=== PATIENT | female | born 1950 | race Caucasian/White ===

== ENCOUNTER 2023-04-20 14:27 | Inpatient (IN) | payer OTHER, SELFPAY ==
[2023-04-20 14:45] VITALS: BMI 28.9
[2023-04-20 14:54] VITALS: BP 124/58; PULSE 87; RESP 18; TEMP 36.3; O2SAT 96
[2023-04-20] MEDS: metFORMIN HCl ER 500 MG TAB.ER.24H PO ×2 (16:32→21:12)
[2023-04-20] MEDS: hydrALAZINE HCl 50 MG TABLET PO ×2 (16:32→21:38)
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
--- NOTE | 2023-04-20 17:45 | P.CONHOSP_ITS ---
History of Present Illness Data of Consult Service Date: 04/20/23 Requesting physician: Da Valle Primary Care Provider: Unknown Physician HPI Reason for consult: medical h&p 72 year old female with history of hypertension, insulin-dependent type 2 diabetes, hypothyroidism, hyperlipidemia, schizoaffective disorder admitted to Geriatric Psychiatry with consult placed to hospitalist service for medical H&P. The patient is very guarded on exam and is not answering most questions or offering up much information. She states on the way to the hospital in the ambulance was nauseas but this has resolved. No other complaints. Denies etoh use, cigarette smoking or drug use. IN the ED, hematology studies unremarkable, renal function normal, lytes normal except for a mild hyponatremia. UA negative, Utox negative. Review of Systems Review of Systems: General: No fevers, malaise, unintentional weight loss HEENT: No blurred vision, diplopia. No sore throat, nasal congestion, rhinorrhea, sinus pain, ear pain Cardiovascular: No chest pain, palpitations, or leg edema Respiratory: No shortness of breath, wheezing, cough GI: No abdominal pain, nausea, vomiting, diarrhea, constipation, melena, hematochezia : No dysuria, hematuria, increased urinary frequency, decreased urinary output MSK: No myalgia, back pain Neuro: No headaches, weakness, paresthesias Skin: No rashes or lesions [facility] Medical History Schizoaffective disorder Hypothyroidism Type 2 diabetes mellitus HLD (hyperlipidemia) HTN (hypertension) Social History Household Members: None Housing: Apartment Do you presently have visiting nurse or other home services: Yes (stopped coming) Patient Tobacco Use Status: Never used Tobacco Use of substances other than those prescribed or required for medical reasons: No Currently Displaying Signs/Symptoms of Drug Intoxication Withdrawal: No Any prior treatment program specific to substance use: No Have you been hit, kicked, punched, or otherwise hurt by someone within the past year? If so, by whom?: No Do you feel safe in your current relationship?: No Is there a partner from a previous relationship who is making you feel unsafe now?: No Are you made to feel afraid or neglected: No Spiritual Healthcare Practices: No Anabaptism Healthcare Practices: No Cultural Healthcare Practices: No Advance Directives: No Advance Directives Information Provided: No Do you have thoughts of harming others: None Do you have a plan to hurt others: No Plan Recently lost weight without trying: No Eating poorly because of decreased appetite: No Nutrition Risks: No Nutritional Risk Patient : No : No Poor oral hygiene: No Meds Allergies Allergy/AdvReac Type Severity Reaction Status Date / Time latex AdvReac Unknown Verified 04/20/23 14:48 Active Medications: Current Medications Acetaminophen (Acetaminophen 325 Mg Tablet) 650 mg PO Q6H PRN PRN Reason: Headache/Pain Mild Scale (1-3) Al Hydroxide/Mg Hydroxide (Magnesium Hydrox/Alum Hydrox 30 Ml Oral.Susp) 30 ml PO Q6H PRN PRN Reason: Heartburn/Nausea Amlodipine Besylate (Amlodipine Besylate 5 Mg Tablet) 5 mg PO DAILY [facility]; Protocol Aripiprazole (Aripiprazole 10 Mg Tablet) 10 mg PO DAILY [facility] Atorvastatin Calcium (Atorvastatin Calcium 40 Mg Tablet) 40 mg PO BEDTIME [facility] Clonazepam (Clonazepam 1 Mg Tablet) 1 mg PO BID PRN PRN Reason: Anxiety Clozapine (Clozapine 100 Mg Tablet) 400 mg PO BEDTIME [facility] Empagliflozin (Empagliflozin 10 Mg Tablet) 10 mg PO DAILY [facility] Folic Acid (Folic Acid 1 Mg Tablet) 1 mg PO DAILY [facility] Hydralazine HCl (Hydralazine Hcl 50 Mg Tablet) 50 mg PO TID [facility]; Protocol Last Admin: 04/20/23 16:32 Dose: 50 mg Hydroxyzine HCl (Hydroxyzine Hcl 25 Mg Tablet) 25 mg PO Q6H PRN PRN Reason: Anxiety Magnesium Hydroxide (Milk Of Magnesia 30 Ml Oral.Susp) 30 ml PO DAILY PRN PRN Reason: Constipation Metformin HCl (Metformin Hcl Er 500 Mg Tab.Er.24h) 500 mg PO TID@0900,1700,2100 [facility] Last Admin: 04/20/23 16:32 Dose: 500 mg Metoprolol Tartrate (Metoprolol Tartrate 50 Mg Tablet) 50 mg PO BID [facility]; Protocol Non-Formulary Medication (Dulaglutide [Trulicity]) 1.5 mg SUBCUT Q7D [facility] Trazodone HCl (Trazodone Hcl 50 Mg Tablet) 50 mg PO BEDTIME MRX1 PRN PRN Reason: Insomnia Vitamin D (Cholecalciferol (Vitamin D3) 25 Mcg Tablet) 25 mcg PO DAILY [facility] Home Medications Medication Instructions Recorded Confirmed Last Taken Type amlodipine 5 mg tablet 5 mg PO DAILY 04/20/23 04/20/23 Unknown History aripiprazole 10 mg tablet 10 mg PO DAILY 04/20/23 04/20/23 Unknown History atorvastatin 40 mg tablet 40 mg PO BEDTIME 04/20/23 04/20/23 Unknown History cholecalciferol (vitamin D3) 25 25 mcg PO DAILY 04/20/23 04/20/23 Unknown History mcg (1,000 unit) tablet clonazepam 1 mg tablet 1 mg PO BID PRN Anxiety 04/20/23 04/20/23 Unknown History clozapine 200 mg tablet 400 mg PO BEDTIME 04/20/23 04/20/23 Unknown History dapagliflozin propanediol 10 mg 10 mg PO DAILY 04/20/23 04/20/23 Unknown History tablet (Farxiga) dulaglutide 1.5 mg/0.5 mL 1.5 mg subcut QWEEK 04/20/23 04/20/23 Unknown History subcutaneous pen injector (Trulicity) folic acid 1 mg tablet 1 mg PO DAILY 04/20/23 04/20/23 Unknown History hydralazine 50 mg tablet 50 mg PO TID 04/20/23 04/20/23 Unknown History insulin glargine 100 unit/mL 15 unit subcut DIRECTED 04/20/23 04/20/23 Unknown History subcutaneous solution (Lantus U-100 Insulin) lisinopril 10 mg tablet 10 mg PO DAILY blood pressure 04/20/23 04/20/23 Unknown History metformin 500 mg tablet,extended 500 mg PO TID 04/20/23 04/20/23 Unknown History release 24 hr methimazole 10 mg tablet 10 mg PO DAILY 04/20/23 04/20/23 Unknown History metoprolol tartrate 50 mg tablet 50 mg PO BID 04/20/23 04/20/23 Unknown History Physical Exam Vital Signs and Narrative: Vital Signs: Last Vital Signs Temp 97.4 F 04/20/23 14:54 Pulse 87 04/20/23 14:54 Resp 18 04/20/23 14:54 BP 124/58 L 04/20/23 14:54 Pulse Ox 96 04/20/23 14:54 O2 Del Method Room Air 03/05/24 14:54 BMI result Body Mass Index 28.9 Constitutional - Awake and Alert, No apparent distress Eyes - non conjunctival injection, EOMI Cardiovascular - S1S2, RRR, No edema Respiratory - Normal lung expansion, Normal respiratory effort, No respiratory distress, CTA bilaterally Gastrointestinal - NT / ND; +BS; No rebound or guarding Extremities - no calf tenderness bilaterally, no swelling Musculoskeletal - Normal inspection, normal ROM Skin - Warm/Dry Neurological - Alert & oriented x3, pinpoint pupils otherwise CN II-XII in tact, 5/5 strength BUE and BLE Psychological - Appropriate affect Assessment and Plan (1) Routine medical exam: Status: Acute Plan 72 year old female with history of hypertension, insulin-dependent type 2 diabetes, hyperthyroidism, hyperlipidemia, schizoaffective disorder admitted to Geriatric Psychiatry with consult placed to hospitalist service for medical H&P. #Schizoaffective disorder -plan per psychiatry #HTN -bp controlled at 117/59 on exam -continue amlodipine 5mg, hydralazine, metoprolol, lisinopril #Hyperthyroidism -Please reach out to family/pharmacy to confirm methimazole dosing as this was not continued in med rec and should be. Discussed with RN -Check tsh and free t4 now #Insulin dependent type 2 diabetes -poc glucose, diabetic diet if pt agreeable -continue lantus, metformin, farxiga. Continue trulicity if able #HLD -continue statin #Pinpoint pupils noted on exam -suspect chronic r/t clozapine use -There are no other focal deficits on exam and patient is not symptomatic. Discussed with Dr. Davis, head CT not indicated at this time Thank you for this consult. Will continue following for results.
[2023-04-20 18:00] VITALS: BP 108/60; PULSE 73; RESP 18; TEMP 36.1; O2SAT 95
[2023-04-20 19:15] LABS: Free T4 (Free Thyroxine) 1.25 ng/dL (0.71-1.85); Thyroid Stimulating Hormone 0.01 uIU/mL (0.32-4.0)
[2023-04-20] MEDS: cloZAPine 100 MG TABLET 400 MG PO (21:10)
[2023-04-20] MEDS: Atorvastatin Calcium 40 MG TABLET PO (21:10)
[2023-04-20] MEDS: Metoprolol Tartrate 50 MG TABLET PO (21:39)
[2023-04-21 08:30] VITALS: BP 111/62; PULSE 76; RESP 18; O2SAT 100
[2023-04-21] MEDS: ARIPiprazole 10 MG TABLET PO (09:07)
[2023-04-21] MEDS: hydrALAZINE HCl 50 MG TABLET PO ×3 (09:07→20:43)
[2023-04-21] MEDS: Cholecalciferol (Vitamin D3) 25 MCG TABLET PO (09:07)
[2023-04-21] MEDS: Folic Acid 1 MG TABLET PO (09:07)
[2023-04-21] MEDS: Empagliflozin 10 MG TABLET PO (09:08)
[2023-04-21] MEDS: metFORMIN HCl ER 500 MG TAB.ER.24H PO ×3 (09:08→20:41)
[2023-04-21] MEDS: Metoprolol Tartrate 50 MG TABLET PO ×2 (09:08→20:43)
[2023-04-21] MEDS: methIMAzole 10 MG TABLET PO (09:08)
[2023-04-21] MEDS: amLODIPine Besylate 5 MG TABLET PO (09:08)
[2023-04-21 11:26] LABS: Glucose, Whole Blood 145 mg/dL (60-115)
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
--- NOTE | 2023-04-21 14:06 | MHC.CLN ---
NUTRITION VISITED WITH PATIENT AFTER LUNCH. STATED THAT WOULD LIKE A DIABETIC DIET. ALSO, CHECKS BLOOD SUGARS TWICE DAILY AT HOME. DIET CHANGED TO DIABETIC 1800 KCALS.
[2023-04-21 16:15] VITALS: BP 140/62; PULSE 71; RESP 16; TEMP 36.2; O2SAT 99
[2023-04-21 18:00] VITALS: BP 110/70; PULSE 82; RESP 16; TEMP 36.4; O2SAT 99
[2023-04-21] MEDS: cloZAPine 100 MG TABLET 400 MG PO (20:41)
[2023-04-21] MEDS: Atorvastatin Calcium 40 MG TABLET PO (20:41)
[2023-04-21] MEDS: clonazePAM 1 MG TABLET PO (20:42)
[2023-04-21] MEDS: Insulin Glargine,Hum.rec.anlog 100 UNIT/ML 10 ML VIAL 15 UNIT SUBCUT (21:27)
[2023-04-21 21:34] LABS: Glucose, Whole Blood 139 mg/dL (60-115)
[2023-04-22 06:29] LABS: Glucose, Whole Blood 112 mg/dL (60-115)
[2023-04-22 07:00] VITALS: BMI 29.3
[2023-04-22 08:10] VITALS: BP 113/71; PULSE 79; RESP 18; TEMP 36.1; O2SAT 98
[2023-04-22 08:24] LABS: Estimated Average Glucose 120 mg/dL; Hemoglobin A1c % 5.8 % (<6.0)
[2023-04-22 08:45] LABS: Alanine Aminotransferase 73 U/L (0-31); Albumin Level 3.5 g/dL (3.5-5.0); Alkaline Phosphatase 77 U/L (39-117); Anion Gap 9 (12-20); Aspartate Amino Transferase 39 U/L (5-31); Bilirubin Total 0.4 mg/dL (0.0-1.0); Blood Urea Nitrogen 18 mg/dL (9-16); Calcium 10.2 mg/dL (8.4-10.2); Carbon Dioxide 24 mmol/L (22-29); Chloride 105 mmol/L (96-108); Cholesterol 81 mg/dL (<200); Estimated Glomerular Filt Rate > 60; Glucose Fasting 169 mg/dL (60-99); HDL Cholesterol 39 mg/dL (>40); LDL Cholesterol Calculated 23 mg/dL (<100); Sodium 134 mmol/L (135-145); Total Protein 6.9 g/dL (6.5-8.0); Triglycerides 97 mg/dL (<150)
[2023-04-22 09:06] LABS: Thyroid Stimulating Hormone < 0.01 uIU/mL (0.32-4.0)
[2023-04-22] MEDS: Empagliflozin 10 MG TABLET PO (09:21)
[2023-04-22] MEDS: lisinopriL 10 MG TABLET PO (09:22)
[2023-04-22] MEDS: metFORMIN HCl ER 500 MG TAB.ER.24H PO ×3 (09:22→21:44)
[2023-04-22] MEDS: Cholecalciferol (Vitamin D3) 25 MCG TABLET PO (09:22)
[2023-04-22] MEDS: ARIPiprazole 10 MG TABLET PO (09:22)
[2023-04-22] MEDS: Metoprolol Tartrate 50 MG TABLET PO ×2 (09:22→21:44)
[2023-04-22] MEDS: hydrALAZINE HCl 50 MG TABLET PO ×3 (09:22→21:44)
[2023-04-22] MEDS: Folic Acid 1 MG TABLET PO (09:23)
[2023-04-22] MEDS: amLODIPine Besylate 5 MG TABLET PO (09:23)
[2023-04-22] MEDS: methIMAzole 10 MG TABLET PO (09:27)
[2023-04-22] MEDS: Acetaminophen 325 MG TABLET 650 MG PO (09:38)
[2023-04-22 14:29] VITALS: BP 114/56; PULSE 68
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
[2023-04-22 16:26] LABS: Glucose, Whole Blood 154 mg/dL (60-115)
[2023-04-22 19:57] VITALS: BP 154/67; PULSE 64; RESP 18; TEMP 36.5; O2SAT 96
[2023-04-22 20:18] LABS: Glucose, Whole Blood 131 mg/dL (60-115)
[2023-04-22] MEDS: Insulin Glargine,Hum.rec.anlog 100 UNIT/ML 10 ML VIAL 15 UNIT SUBCUT (21:43)
[2023-04-22] MEDS: Atorvastatin Calcium 40 MG TABLET PO (21:44)
[2023-04-22] MEDS: cloZAPine 100 MG TABLET 400 MG PO (21:44)
[2023-04-23 06:35] LABS: Glucose, Whole Blood 132 mg/dL (60-115)
[2023-04-23 08:05] LABS: MANUAL DIFF FLAG NO
[2023-04-23 08:06] LABS: Basophils Absolute Auto 0.1 X10*3/uL (0.0-0.2); Basophils Percent Auto 0.8 % (0-2); Eosinophils Absolute Auto 0.2 X10*3/uL (0.0-0.4); Eosinophils Percent Auto 3.4 % (0-4); Hematocrit 40.1 % (37.0-47.0); Hemoglobin 13.1 g/dl (12.0-16.0); Imm Gran Abs Auto 0.02 X10*3/uL (0.00-0.03); Imm Gran Pct Auto 0.3 % (0.0-0.4); Lymphocytes Absolute Auto 1.7 X10*3/uL (1.2-4.9); Lymphocytes Percent Auto 26.7 % (20-40); Mean Corpuscular HGB Conc 32.7 g/dl (31.0-35.0); Mean Corpuscular Hemoglobin 29.2 pg (27.0-33.0); Mean Corpuscular Volume 89.3 fL (80.0-98.0); Mean Platelet Volume 10.2 fL (9.4-12.3); Monocytes Absolute Auto 0.8 X10*3/uL (0.1-1.2); Monocytes Percent Auto 12.7 % (2-11); Neutrophils Absolute Auto 3.6 x10*3/uL (2.0-8.3); Neutrophils Percent Auto 56.1 % (45-73); Platelet Count 225 X10*3/uL (160-400); Red Blood Count 4.49 X10*6/uL (4.20-5.50); Red Cell Distribution Width 13.4 % (11.0-16.0); White Blood Count 6.4 X10*3/uL (4.8-10.8)
[2023-04-23 08:24] VITALS: BP 104/58; PULSE 72; RESP 18; TEMP 36.2; O2SAT 96
[2023-04-23] MEDS: Metoprolol Tartrate 50 MG TABLET PO ×2 (08:53→21:16)
[2023-04-23] MEDS: methIMAzole 10 MG TABLET PO (08:53)
[2023-04-23] MEDS: hydrALAZINE HCl 50 MG TABLET PO ×3 (08:53→21:16)
[2023-04-23] MEDS: metFORMIN HCl ER 500 MG TAB.ER.24H PO ×3 (08:53→21:16)
[2023-04-23] MEDS: amLODIPine Besylate 5 MG TABLET PO (08:54)
[2023-04-23] MEDS: ARIPiprazole 10 MG TABLET PO (08:54)
[2023-04-23] MEDS: Cholecalciferol (Vitamin D3) 25 MCG TABLET PO (08:54)
[2023-04-23] MEDS: lisinopriL 10 MG TABLET PO (08:54)
[2023-04-23] MEDS: Empagliflozin 10 MG TABLET PO (08:54)
[2023-04-23] MEDS: Folic Acid 1 MG TABLET PO (08:54)
[2023-04-23 11:30] LABS: Glucose, Whole Blood 116 mg/dL (60-115)
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
[2023-04-23 14:20] VITALS: BP 114/57; PULSE 70
[2023-04-23 16:31] LABS: Glucose, Whole Blood 119 mg/dL (60-115)
[2023-04-23 18:00] VITALS: BP 133/60; PULSE 63; RESP 18; TEMP 36.1; O2SAT 95
[2023-04-23 20:02] LABS: Glucose, Whole Blood 111 mg/dL (60-115)
[2023-04-23] MEDS: traZODone HCL 50 MG TABLET PO (21:16)
[2023-04-23] MEDS: cloZAPine 100 MG TABLET 400 MG PO (21:16)
[2023-04-23] MEDS: Atorvastatin Calcium 40 MG TABLET PO (21:17)
[2023-04-23] MEDS: Insulin Glargine,Hum.rec.anlog 100 UNIT/ML 10 ML VIAL 15 UNIT SUBCUT (21:17)
[2023-04-23 23:13] LABS: Clozapine (Clozaril) 236 mcg/L; Norclozapine 127 mcg/L (25-400)
[2023-04-24] MEDS: clonazePAM 1 MG TABLET PO ×2 (03:08→20:37)
[2023-04-24] MEDS: Magnesium Hydrox/Alum Hydrox 30 ML ORAL.SUSP PO (03:12)
[2023-04-24 07:13] LABS: Glucose, Whole Blood 132 mg/dL (60-115)
[2023-04-24 08:50] VITALS: BP 114/55; PULSE 76; RESP 16; TEMP 36.4; O2SAT 100
[2023-04-24] MEDS: lisinopriL 10 MG TABLET PO (09:12)
[2023-04-24] MEDS: ARIPiprazole 10 MG TABLET PO (09:12)
[2023-04-24] MEDS: metFORMIN HCl ER 500 MG TAB.ER.24H PO ×3 (09:12→20:36)
[2023-04-24] MEDS: hydrALAZINE HCl 50 MG TABLET PO ×3 (09:12→20:35)
[2023-04-24] MEDS: methIMAzole 10 MG TABLET PO (09:12)
[2023-04-24] MEDS: Folic Acid 1 MG TABLET PO (09:12)
[2023-04-24] MEDS: Cholecalciferol (Vitamin D3) 25 MCG TABLET PO (09:12)
[2023-04-24] MEDS: Metoprolol Tartrate 50 MG TABLET PO ×2 (09:12→20:36)
[2023-04-24] MEDS: Empagliflozin 10 MG TABLET PO (09:12)
[2023-04-24] MEDS: amLODIPine Besylate 5 MG TABLET PO (09:12)
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
[2023-04-24 11:11] LABS: Glucose, Whole Blood 125 mg/dL (60-115)
[2023-04-24 15:00] VITALS: BP 112/54
[2023-04-24 16:19] LABS: Glucose, Whole Blood 124 mg/dL (60-115)
[2023-04-24 18:00] VITALS: BP 111/51; PULSE 61; RESP 18; TEMP 36.4; O2SAT 96
[2023-04-24 19:53] LABS: Glucose, Whole Blood 150 mg/dL (60-115)
[2023-04-24] MEDS: cloZAPine 100 MG TABLET 400 MG PO (20:35)
[2023-04-24] MEDS: Atorvastatin Calcium 40 MG TABLET PO (20:36)
[2023-04-24] MEDS: traZODone HCL 50 MG TABLET PO (20:37)
[2023-04-24] MEDS: Insulin Glargine,Hum.rec.anlog 100 UNIT/ML 10 ML VIAL 15 UNIT SUBCUT (20:37)
[2023-04-25 06:40] LABS: Glucose, Whole Blood 123 mg/dL (60-115)
[2023-04-25 09:00] VITALS: BP 92/50; PULSE 78; RESP 16; TEMP 36.4; O2SAT 96
[2023-04-25] MEDS: methIMAzole 10 MG TABLET PO (09:02)
[2023-04-25] MEDS: Cholecalciferol (Vitamin D3) 25 MCG TABLET PO (09:02)
[2023-04-25] MEDS: Empagliflozin 10 MG TABLET PO (09:02)
[2023-04-25] MEDS: Folic Acid 1 MG TABLET PO (09:02)
[2023-04-25] MEDS: metFORMIN HCl ER 500 MG TAB.ER.24H PO ×3 (09:02→21:35)
[2023-04-25] MEDS: ARIPiprazole 10 MG TABLET PO (09:02)
[2023-04-25] MEDS: Magnesium Hydrox/Alum Hydrox 30 ML ORAL.SUSP PO (09:04)
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
[2023-04-25 15:23] VITALS: BP 107/82
[2023-04-25] MEDS: hydrALAZINE HCl 50 MG TABLET PO ×2 (15:29→21:35)
[2023-04-25 18:00] VITALS: BP 132/60; PULSE 76; RESP 18; TEMP 36.3; O2SAT 95
[2023-04-25 21:34] LABS: Glucose, Whole Blood 139 mg/dL (60-115)
[2023-04-25] MEDS: cloZAPine 100 MG TABLET 400 MG PO (21:34)
[2023-04-25] MEDS: Atorvastatin Calcium 40 MG TABLET PO (21:34)
[2023-04-25] MEDS: Metoprolol Tartrate 50 MG TABLET PO (21:35)
[2023-04-25] MEDS: Insulin Glargine,Hum.rec.anlog 100 UNIT/ML 10 ML VIAL 15 UNIT SUBCUT (21:36)
[2023-04-26 08:10] VITALS: BP 102/53; PULSE 74; RESP 18; TEMP 36.2; O2SAT 97
[2023-04-26 08:10] LABS: Neut%MD 55.6 %; Neutrophils Absolute Auto 3.6 x10*3/uL (2.0-8.3); WBCANC 6.6 X10*3/uL
[2023-04-26] MEDS: Cholecalciferol (Vitamin D3) 25 MCG TABLET PO (08:52)
[2023-04-26] MEDS: ARIPiprazole 10 MG TABLET PO (08:52)
[2023-04-26] MEDS: hydrALAZINE HCl 50 MG TABLET PO (08:52)
[2023-04-26] MEDS: Metoprolol Tartrate 50 MG TABLET PO ×2 (08:53→20:48)
[2023-04-26] MEDS: Folic Acid 1 MG TABLET PO (08:53)
[2023-04-26] MEDS: Empagliflozin 10 MG TABLET PO (08:53)
[2023-04-26] MEDS: metFORMIN HCl ER 500 MG TAB.ER.24H PO ×3 (08:53→20:48)
[2023-04-26] MEDS: amLODIPine Besylate 5 MG TABLET PO (08:53)
[2023-04-26] MEDS: lisinopriL 10 MG TABLET PO (08:54)
[2023-04-26] MEDS: methIMAzole 10 MG TABLET PO (08:54)
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
[2023-04-26] MEDS: Magnesium Hydrox/Alum Hydrox 30 ML ORAL.SUSP PO (11:23)
[2023-04-26 18:00] VITALS: BP 139/66; PULSE 86; RESP 18; TEMP 36.7; O2SAT 97
[2023-04-26 19:58] LABS: Glucose, Whole Blood 157 mg/dL (60-115)
[2023-04-26] MEDS: Atorvastatin Calcium 40 MG TABLET PO (20:47)
[2023-04-26] MEDS: cloZAPine 100 MG TABLET 400 MG PO (20:48)
[2023-04-26] MEDS: Insulin Glargine,Hum.rec.anlog 100 UNIT/ML 10 ML VIAL 15 UNIT SUBCUT (20:50)
[2023-04-27 08:14] VITALS: BP 115/57; PULSE 69; RESP 18; TEMP 36.3; O2SAT 96
[2023-04-27] MEDS: lisinopriL 10 MG TABLET PO (08:24)
[2023-04-27] MEDS: Folic Acid 1 MG TABLET PO (08:24)
[2023-04-27] MEDS: amLODIPine Besylate 5 MG TABLET PO (08:24)
[2023-04-27] MEDS: methIMAzole 10 MG TABLET PO (08:24)
[2023-04-27] MEDS: Empagliflozin 10 MG TABLET PO (08:24)
[2023-04-27] MEDS: ARIPiprazole 10 MG TABLET PO (08:24)
[2023-04-27] MEDS: Cholecalciferol (Vitamin D3) 25 MCG TABLET PO (08:24)
[2023-04-27] MEDS: metFORMIN HCl ER 500 MG TAB.ER.24H PO ×3 (08:24→20:22)
[2023-04-27] MEDS: Metoprolol Tartrate 50 MG TABLET PO ×2 (08:24→20:23)
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
--- NOTE | 2023-04-27 12:36 | PC.NURSE ---
Patient complaining of heartburn, refused Maalox, wants TUMS. Almaz Fuller [employer] updated by this consumer loan underwriter.
[2023-04-27] MEDS: Calcium Carbonate 750 MG TAB.CHEW PO ×2 (12:50→20:40)
--- NOTE | 2023-04-27 12:50 | PC.NURSE ---
New order for TUMS EX Strength obtained and dose given to patient for complaints of indigestion/heartburn.
[2023-04-27 18:00] VITALS: BP 146/67; PULSE 68; RESP 18; TEMP 36.3; O2SAT 97
[2023-04-27] MEDS: cloZAPine 100 MG TABLET 400 MG PO (20:21)
[2023-04-27] MEDS: Atorvastatin Calcium 40 MG TABLET PO (20:21)
[2023-04-27] MEDS: Insulin Glargine,Hum.rec.anlog 100 UNIT/ML 10 ML VIAL 15 UNIT SUBCUT (20:24)
[2023-04-27 20:43] LABS: Glucose, Whole Blood 95 mg/dL (60-115)
[2023-04-28 06:49] LABS: Glucose, Whole Blood 103 mg/dL (60-115)
[2023-04-28 08:11] VITALS: BP 142/63; PULSE 65; RESP 18; TEMP 36.3; O2SAT 98
[2023-04-28] MEDS: Metoprolol Tartrate 50 MG TABLET PO ×2 (08:33→20:42)
[2023-04-28] MEDS: metFORMIN HCl ER 500 MG TAB.ER.24H PO ×3 (08:33→20:42)
[2023-04-28] MEDS: Folic Acid 1 MG TABLET PO (08:33)
[2023-04-28] MEDS: ARIPiprazole 10 MG TABLET PO (08:33)
[2023-04-28] MEDS: methIMAzole 10 MG TABLET PO (08:33)
[2023-04-28] MEDS: Cholecalciferol (Vitamin D3) 25 MCG TABLET PO (08:33)
[2023-04-28] MEDS: Empagliflozin 10 MG TABLET PO (08:33)
[2023-04-28] MEDS: amLODIPine Besylate 5 MG TABLET PO (08:33)
[2023-04-28] MEDS: clonazePAM 1 MG TABLET PO ×2 (08:33→20:42)
[2023-04-28] MEDS: Calcium Carbonate 750 MG TAB.CHEW PO (08:33)
[2023-04-28] MEDS: lisinopriL 10 MG TABLET PO (08:34)
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
--- NOTE | 2023-04-28 14:12 | PC.NURSE ---
POC order completed, Soila still getting multiple diabetic meds. Reached out to covering provider Rima Prasad NP and asked if appropriate to order POCs.
[2023-04-28 18:00] VITALS: BP 121/65; PULSE 75; RESP 18; TEMP 36.1; O2SAT 100
[2023-04-28 19:52] LABS: Glucose, Whole Blood 140 mg/dL (60-115)
[2023-04-28] MEDS: Atorvastatin Calcium 40 MG TABLET PO (20:42)
[2023-04-28] MEDS: Insulin Glargine,Hum.rec.anlog 100 UNIT/ML 10 ML VIAL 15 UNIT SUBCUT (20:42)
[2023-04-28] MEDS: cloZAPine 100 MG TABLET 400 MG PO (20:42)
[2023-04-28] MEDS: traZODone HCL 50 MG TABLET PO (20:42)
[2023-04-29 06:48] LABS: Glucose, Whole Blood 98 mg/dL (60-115)
[2023-04-29 07:00] VITALS: BMI 29.4
[2023-04-29 07:42] VITALS: BP 109/65; PULSE 67; RESP 18; TEMP 36.3; O2SAT 99
[2023-04-29] MEDS: Cholecalciferol (Vitamin D3) 25 MCG TABLET PO (07:58)
[2023-04-29] MEDS: clonazePAM 1 MG TABLET PO ×2 (07:58→20:53)
[2023-04-29] MEDS: amLODIPine Besylate 5 MG TABLET PO (07:58)
[2023-04-29] MEDS: Calcium Carbonate 750 MG TAB.CHEW PO ×2 (07:58→16:18)
[2023-04-29] MEDS: metFORMIN HCl ER 500 MG TAB.ER.24H PO ×3 (07:58→20:53)
[2023-04-29] MEDS: Metoprolol Tartrate 50 MG TABLET PO ×2 (07:58→20:53)
[2023-04-29] MEDS: methIMAzole 10 MG TABLET PO (07:59)
[2023-04-29] MEDS: Empagliflozin 10 MG TABLET PO (07:59)
[2023-04-29] MEDS: lisinopriL 10 MG TABLET PO (07:59)
[2023-04-29] MEDS: Folic Acid 1 MG TABLET PO (07:59)
[2023-04-29] MEDS: ARIPiprazole 10 MG TABLET PO (07:59)
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
[2023-04-29 18:00] VITALS: BP 144/68; PULSE 78; RESP 18; TEMP 36.7; O2SAT 98
[2023-04-29] MEDS: cloZAPine 100 MG TABLET 400 MG PO (20:52)
[2023-04-29] MEDS: traZODone HCL 50 MG TABLET PO (20:52)
[2023-04-29] MEDS: Atorvastatin Calcium 40 MG TABLET PO (20:53)
[2023-04-29] MEDS: Insulin Glargine,Hum.rec.anlog 100 UNIT/ML 10 ML VIAL 15 UNIT SUBCUT (20:53)
[2023-04-30 00:01] LABS: Glucose, Whole Blood 143 mg/dL (60-115)
[2023-04-30 06:38] LABS: Glucose, Whole Blood 98 mg/dL (60-115)
[2023-04-30 08:25] LABS: Creatinine Clr Calc Pharmacy 69.6; Estimated Glomerular Filt Rate > 60
[2023-04-30 09:38] VITALS: BP 113/55; PULSE 74; RESP 18; TEMP 37.1; O2SAT 98
[2023-04-30] MEDS: Calcium Carbonate 750 MG TAB.CHEW PO (09:39)
[2023-04-30] MEDS: Empagliflozin 10 MG TABLET PO (09:40)
[2023-04-30] MEDS: metFORMIN HCl ER 500 MG TAB.ER.24H PO (09:40)
[2023-04-30] MEDS: Metoprolol Tartrate 50 MG TABLET PO ×2 (09:40→21:03)
[2023-04-30] MEDS: Folic Acid 1 MG TABLET PO (09:40)
[2023-04-30] MEDS: Cholecalciferol (Vitamin D3) 25 MCG TABLET PO (09:40)
[2023-04-30] MEDS: amLODIPine Besylate 5 MG TABLET PO (09:40)
[2023-04-30] MEDS: ARIPiprazole 15 MG TABLET PO (09:40)
[2023-04-30] MEDS: lisinopriL 10 MG TABLET PO (09:40)
[2023-04-30] MEDS: methIMAzole 10 MG TABLET PO (09:41)
[2023-04-30 09:48] LABS: Clozapine (Clozaril) 359 mcg/L; Norclozapine 292 mcg/L (25-400)
[2023-04-30 11:41] LABS: Glucose, Whole Blood 150 mg/dL (60-115)
[2023-04-30 16:17] LABS: Glucose, Whole Blood 109 mg/dL (60-115)
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
[2023-04-30 20:34] LABS: Glucose, Whole Blood 150 mg/dL (60-115)
[2023-04-30] MEDS: Insulin Glargine,Hum.rec.anlog 100 UNIT/ML 10 ML VIAL 15 UNIT SUBCUT (21:03)
[2023-04-30] MEDS: traZODone HCL 50 MG TABLET PO (21:04)
[2023-04-30] MEDS: metFORMIN HCl 1,000 MG TABLET 1000 MG PO (21:04)
[2023-04-30] MEDS: Atorvastatin Calcium 40 MG TABLET PO (21:04)
[2023-04-30] MEDS: cloZAPine 100 MG TABLET 400 MG PO (21:04)
[2023-05-01 06:37] LABS: Glucose, Whole Blood 127 mg/dL (60-115)
[2023-05-01 08:20] VITALS: BP 107/55; PULSE 76; RESP 17; TEMP 35.8; O2SAT 100
[2023-05-01] MEDS: Metoprolol Tartrate 50 MG TABLET PO ×2 (08:53→20:21)
[2023-05-01] MEDS: metFORMIN HCl ER 500 MG TAB.ER.24H PO (08:54)
[2023-05-01] MEDS: Cholecalciferol (Vitamin D3) 25 MCG TABLET PO (08:54)
[2023-05-01] MEDS: Folic Acid 1 MG TABLET PO (08:54)
[2023-05-01] MEDS: ARIPiprazole 20 MG TABLET PO (08:54)
[2023-05-01] MEDS: Empagliflozin 10 MG TABLET PO (08:54)
[2023-05-01] MEDS: cloZAPine 25 MG TABLET PO (08:54)
[2023-05-01] MEDS: amLODIPine Besylate 5 MG TABLET PO (08:54)
[2023-05-01] MEDS: methIMAzole 10 MG TABLET PO (08:54)
[2023-05-01] MEDS: lisinopriL 10 MG TABLET PO (08:54)
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
[2023-05-01 19:50] VITALS: BP 107/59; PULSE 79; RESP 18; TEMP 36.1; O2SAT 98
[2023-05-01 19:53] LABS: Glucose, Whole Blood 153 mg/dL (60-115)
[2023-05-01] MEDS: Insulin Glargine,Hum.rec.anlog 100 UNIT/ML 10 ML VIAL 15 UNIT SUBCUT (20:21)
[2023-05-01] MEDS: metFORMIN HCl 1,000 MG TABLET 1000 MG PO (20:21)
[2023-05-01] MEDS: Atorvastatin Calcium 40 MG TABLET PO (20:21)
[2023-05-01] MEDS: cloZAPine 100 MG TABLET 400 MG PO (20:21)
[2023-05-02 06:28] LABS: Glucose, Whole Blood 86 mg/dL (60-115)
[2023-05-02 08:00] VITALS: BP 110/56; PULSE 78; RESP 18; TEMP 36; O2SAT 98
[2023-05-02] MEDS: metFORMIN HCl ER 500 MG TAB.ER.24H PO (08:43)
[2023-05-02] MEDS: lisinopriL 10 MG TABLET PO (08:43)
[2023-05-02] MEDS: ARIPiprazole 20 MG TABLET PO (08:43)
[2023-05-02] MEDS: Cholecalciferol (Vitamin D3) 25 MCG TABLET PO (08:43)
[2023-05-02] MEDS: Metoprolol Tartrate 50 MG TABLET PO ×2 (08:43→20:07)
[2023-05-02] MEDS: amLODIPine Besylate 5 MG TABLET PO (08:44)
[2023-05-02] MEDS: Folic Acid 1 MG TABLET PO (08:44)
[2023-05-02] MEDS: Empagliflozin 10 MG TABLET PO (08:44)
[2023-05-02] MEDS: methIMAzole 10 MG TABLET PO (08:44)
[2023-05-02] MEDS: cloZAPine 25 MG TABLET PO (08:44)
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
[2023-05-02] MEDS: Calcium Carbonate 750 MG TAB.CHEW PO (17:35)
--- NOTE | 2023-05-02 17:36 | PC.NURSE ---
Patient complaining of GI upset after dinner, requested TUMS, given at 1736.
[2023-05-02 19:57] LABS: Glucose, Whole Blood 173 mg/dL (60-115)
[2023-05-02 20:00] VITALS: BP 179/76; PULSE 70; RESP 18; TEMP 36.3; O2SAT 97
[2023-05-02] MEDS: Atorvastatin Calcium 40 MG TABLET PO (20:07)
[2023-05-02] MEDS: Insulin Glargine,Hum.rec.anlog 100 UNIT/ML 10 ML VIAL 15 UNIT SUBCUT (20:07)
[2023-05-02] MEDS: metFORMIN HCl 1,000 MG TABLET 1000 MG PO (20:07)
[2023-05-02] MEDS: cloZAPine 100 MG TABLET 400 MG PO (20:07)
[2023-05-03 06:00] VITALS: BP 147/65; PULSE 70; RESP 18; TEMP 36.6; O2SAT 99
[2023-05-03 06:45] LABS: Glucose, Whole Blood 104 mg/dL (60-115)
[2023-05-03] MEDS: amLODIPine Besylate 5 MG TABLET PO (08:09)
[2023-05-03] MEDS: cloZAPine 25 MG TABLET 50 MG PO (08:10)
[2023-05-03] MEDS: metFORMIN HCl ER 500 MG TAB.ER.24H PO (08:11)
[2023-05-03] MEDS: lisinopriL 10 MG TABLET PO (08:11)
[2023-05-03] MEDS: Folic Acid 1 MG TABLET PO (08:11)
[2023-05-03] MEDS: Metoprolol Tartrate 50 MG TABLET PO ×2 (08:11→20:45)
[2023-05-03] MEDS: Empagliflozin 10 MG TABLET PO (08:11)
[2023-05-03] MEDS: methIMAzole 10 MG TABLET PO (08:11)
[2023-05-03] MEDS: ARIPiprazole 20 MG TABLET PO (08:12)
[2023-05-03] MEDS: Cholecalciferol (Vitamin D3) 25 MCG TABLET PO (08:12)
[2023-05-03 08:17] LABS: Neut%MD 58.7 %; Neutrophils Absolute Auto 5.3 x10*3/uL (2.0-8.3)
[2023-05-03] MEDS: Calcium Carbonate 750 MG TAB.CHEW PO (08:27)
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
[2023-05-03 18:00] VITALS: BP 114/56; PULSE 81; RESP 18; TEMP 36.4; O2SAT 97
[2023-05-03 19:54] LABS: Glucose, Whole Blood 215 mg/dL (60-115)
[2023-05-03] MEDS: traZODone HCL 50 MG TABLET PO (20:45)
[2023-05-03] MEDS: Atorvastatin Calcium 40 MG TABLET PO (20:45)
[2023-05-03] MEDS: metFORMIN HCl 1,000 MG TABLET 1000 MG PO (20:45)
[2023-05-03] MEDS: Insulin Glargine,Hum.rec.anlog 100 UNIT/ML 10 ML VIAL 15 UNIT SUBCUT (20:45)
[2023-05-03] MEDS: clonazePAM 1 MG TABLET PO (20:45)
[2023-05-03] MEDS: cloZAPine 100 MG TABLET 400 MG PO (21:54)
[2023-05-04 06:34] LABS: Glucose, Whole Blood 107 mg/dL (60-115)
[2023-05-04 08:00] VITALS: BP 106/67; PULSE 80; RESP 18; TEMP 36; O2SAT 98
[2023-05-04] MEDS: cloZAPine 25 MG TABLET 50 MG PO (08:31)
[2023-05-04] MEDS: methIMAzole 10 MG TABLET PO (08:32)
[2023-05-04] MEDS: ARIPiprazole 20 MG TABLET PO (08:32)
[2023-05-04] MEDS: Empagliflozin 10 MG TABLET PO (08:32)
[2023-05-04] MEDS: Calcium Carbonate 750 MG TAB.CHEW PO (08:32)
[2023-05-04] MEDS: Folic Acid 1 MG TABLET PO (08:32)
[2023-05-04] MEDS: Cholecalciferol (Vitamin D3) 25 MCG TABLET PO (08:32)
[2023-05-04] MEDS: amLODIPine Besylate 5 MG TABLET PO (08:33)
[2023-05-04] MEDS: metFORMIN HCl ER 500 MG TAB.ER.24H PO (08:33)
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
[2023-05-04 18:00] VITALS: BP 129/62; PULSE 91; RESP 18; TEMP 36.3; O2SAT 99
[2023-05-04 20:20] LABS: Glucose, Whole Blood 213 mg/dL (60-115)
[2023-05-04] MEDS: Atorvastatin Calcium 40 MG TABLET PO (21:52)
[2023-05-04] MEDS: metFORMIN HCl 1,000 MG TABLET 1000 MG PO (21:53)
[2023-05-04] MEDS: cloZAPine 100 MG TABLET 400 MG PO (21:53)
[2023-05-04] MEDS: Insulin Glargine,Hum.rec.anlog 100 UNIT/ML 10 ML VIAL 15 UNIT SUBCUT (21:53)
[2023-05-04] MEDS: Metoprolol Tartrate 50 MG TABLET PO (21:53)
[2023-05-05 06:24] LABS: Glucose, Whole Blood 88 mg/dL (60-115)
[2023-05-05 08:00] VITALS: BP 145/78; PULSE 83; RESP 18; TEMP 36.3
[2023-05-05] MEDS: methIMAzole 10 MG TABLET PO (08:12)
[2023-05-05] MEDS: Cholecalciferol (Vitamin D3) 25 MCG TABLET PO (08:12)
[2023-05-05] MEDS: cloZAPine 25 MG TABLET 75 MG PO (08:12)
[2023-05-05] MEDS: lisinopriL 10 MG TABLET PO (08:12)
[2023-05-05] MEDS: metFORMIN HCl ER 500 MG TAB.ER.24H PO (08:12)
[2023-05-05] MEDS: ARIPiprazole 20 MG TABLET PO (08:13)
[2023-05-05] MEDS: Empagliflozin 10 MG TABLET PO (08:13)
[2023-05-05] MEDS: Metoprolol Tartrate 50 MG TABLET PO ×2 (08:13→22:14)
[2023-05-05] MEDS: Folic Acid 1 MG TABLET PO (08:13)
[2023-05-05] MEDS: Calcium Carbonate 750 MG TAB.CHEW PO ×2 (08:35→13:33)
[2023-05-05] MEDS: clonazePAM 1 MG TABLET PO (15:24)
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
[2023-05-05 18:00] VITALS: PULSE 75; RESP 18; TEMP 36.4; O2SAT 98
[2023-05-05 21:47] LABS: Glucose, Whole Blood 121 mg/dL (60-115)
[2023-05-05] MEDS: cloZAPine 100 MG TABLET 400 MG PO (22:13)
[2023-05-05] MEDS: Atorvastatin Calcium 40 MG TABLET PO (22:13)
[2023-05-05] MEDS: metFORMIN HCl 1,000 MG TABLET 1000 MG PO (22:13)
[2023-05-05] MEDS: Insulin Glargine,Hum.rec.anlog 100 UNIT/ML 10 ML VIAL 15 UNIT SUBCUT (22:16)
[2023-05-06 06:42] LABS: Glucose, Whole Blood 91 mg/dL (60-115)
[2023-05-06 07:55] VITALS: BP 142/70; PULSE 70; RESP 18; TEMP 36.6; O2SAT 99
[2023-05-06] MEDS: ARIPiprazole 20 MG TABLET PO (08:34)
[2023-05-06] MEDS: Folic Acid 1 MG TABLET PO (08:34)
[2023-05-06] MEDS: metFORMIN HCl ER 500 MG TAB.ER.24H PO (08:34)
[2023-05-06] MEDS: Metoprolol Tartrate 50 MG TABLET PO ×2 (08:34→20:56)
[2023-05-06] MEDS: methIMAzole 10 MG TABLET PO (08:34)
[2023-05-06] MEDS: Cholecalciferol (Vitamin D3) 25 MCG TABLET PO (08:34)
[2023-05-06] MEDS: cloZAPine 25 MG TABLET 75 MG PO (08:34)
[2023-05-06] MEDS: Empagliflozin 10 MG TABLET PO (08:35)
[2023-05-06] MEDS: lisinopriL 10 MG TABLET PO (08:35)
[2023-05-06] MEDS: Calcium Carbonate 750 MG TAB.CHEW PO (08:35)
[2023-05-06 11:14] LABS: Glucose, Whole Blood 114 mg/dL (60-115)
[2023-05-06 16:12] LABS: Glucose, Whole Blood 122 mg/dL (60-115)
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
[2023-05-06 18:00] VITALS: BP 110/76; PULSE 86; RESP 16; TEMP 36.3; O2SAT 98
[2023-05-06 20:49] LABS: Glucose, Whole Blood 179 mg/dL (60-115)
[2023-05-06] MEDS: Insulin Glargine,Hum.rec.anlog 100 UNIT/ML 10 ML VIAL 15 UNIT SUBCUT (20:53)
[2023-05-06] MEDS: cloZAPine 100 MG TABLET 400 MG PO (20:55)
[2023-05-06] MEDS: metFORMIN HCl 1,000 MG TABLET 1000 MG PO (20:56)
[2023-05-06] MEDS: Atorvastatin Calcium 40 MG TABLET PO (20:56)
[2023-05-07 06:36] LABS: Glucose, Whole Blood 83 mg/dL (60-115)
[2023-05-07 08:07] LABS: Creatinine Clr Calc Pharmacy 68.7; Estimated Glomerular Filt Rate > 60
[2023-05-07 08:15] VITALS: BP 133/62; PULSE 82; RESP 18; TEMP 36.6; O2SAT 99
[2023-05-07] MEDS: ARIPiprazole 20 MG TABLET PO (08:27)
[2023-05-07] MEDS: Cholecalciferol (Vitamin D3) 25 MCG TABLET PO (08:27)
[2023-05-07] MEDS: lisinopriL 10 MG TABLET PO (08:27)
[2023-05-07] MEDS: Empagliflozin 10 MG TABLET PO (08:27)
[2023-05-07] MEDS: Metoprolol Tartrate 50 MG TABLET PO ×2 (08:27→19:51)
[2023-05-07] MEDS: metFORMIN HCl ER 500 MG TAB.ER.24H PO (08:27)
[2023-05-07] MEDS: methIMAzole 10 MG TABLET PO (08:28)
[2023-05-07] MEDS: Folic Acid 1 MG TABLET PO (08:28)
[2023-05-07] MEDS: cloZAPine 25 MG TABLET 75 MG PO (08:28)
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
[2023-05-07 19:00] VITALS: BP 114/62; PULSE 79; RESP 18; TEMP 36.2; O2SAT 98
[2023-05-07 19:32] LABS: Glucose, Whole Blood 150 mg/dL (60-115)
[2023-05-07] MEDS: Insulin Glargine,Hum.rec.anlog 100 UNIT/ML 10 ML VIAL 15 UNIT SUBCUT (19:51)
[2023-05-07] MEDS: Atorvastatin Calcium 40 MG TABLET PO (19:51)
[2023-05-07] MEDS: traZODone HCL 50 MG TABLET PO (19:51)
[2023-05-07] MEDS: cloZAPine 100 MG TABLET 400 MG PO (19:51)
[2023-05-07] MEDS: metFORMIN HCl 1,000 MG TABLET 1000 MG PO (19:51)
[2023-05-08 06:28] LABS: Glucose, Whole Blood 119 mg/dL (60-115)
[2023-05-08 08:00] VITALS: BP 113/58; PULSE 87; RESP 18; TEMP 36.6; O2SAT 98
[2023-05-08] MEDS: metFORMIN HCl ER 500 MG TAB.ER.24H PO (08:17)
[2023-05-08] MEDS: Empagliflozin 10 MG TABLET PO (08:18)
[2023-05-08] MEDS: Metoprolol Tartrate 50 MG TABLET PO ×2 (08:18→20:26)
[2023-05-08] MEDS: ARIPiprazole 20 MG TABLET PO (08:18)
[2023-05-08] MEDS: cloZAPine 25 MG TABLET 75 MG PO (08:18)
[2023-05-08] MEDS: lisinopriL 10 MG TABLET PO (08:18)
[2023-05-08] MEDS: Cholecalciferol (Vitamin D3) 25 MCG TABLET PO (08:18)
[2023-05-08] MEDS: Calcium Carbonate 750 MG TAB.CHEW PO (08:18)
[2023-05-08] MEDS: Folic Acid 1 MG TABLET PO (08:25)
[2023-05-08] MEDS: methIMAzole 10 MG TABLET PO (08:25)
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
[2023-05-08] MEDS: clonazePAM 1 MG TABLET PO (16:59)
[2023-05-08 19:35] LABS: Glucose, Whole Blood 136 mg/dL (60-115)
[2023-05-08 20:03] VITALS: BP 95/55; PULSE 79; RESP 17; TEMP 36; O2SAT 98
[2023-05-08] MEDS: cloZAPine 100 MG TABLET 400 MG PO (20:25)
[2023-05-08] MEDS: metFORMIN HCl 1,000 MG TABLET 1000 MG PO (20:26)
[2023-05-08] MEDS: traZODone HCL 50 MG TABLET PO (20:26)
[2023-05-08] MEDS: Insulin Glargine,Hum.rec.anlog 100 UNIT/ML 10 ML VIAL 15 UNIT SUBCUT (20:26)
[2023-05-08] MEDS: Atorvastatin Calcium 40 MG TABLET PO (20:26)
[2023-05-09 06:25] LABS: Glucose, Whole Blood 138 mg/dL (60-115)
[2023-05-09 08:05] VITALS: BP 128/58; PULSE 72; RESP 18; TEMP 36.5; O2SAT 98
[2023-05-09] MEDS: methIMAzole 10 MG TABLET PO (08:06)
[2023-05-09] MEDS: ARIPiprazole 20 MG TABLET PO (08:07)
[2023-05-09] MEDS: cloZAPine 25 MG TABLET 75 MG PO (08:07)
[2023-05-09] MEDS: Metoprolol Tartrate 50 MG TABLET PO ×2 (08:07→20:03)
[2023-05-09] MEDS: lisinopriL 10 MG TABLET PO (08:07)
[2023-05-09] MEDS: metFORMIN HCl ER 500 MG TAB.ER.24H PO (08:07)
[2023-05-09] MEDS: Cholecalciferol (Vitamin D3) 25 MCG TABLET PO (08:07)
[2023-05-09] MEDS: Folic Acid 1 MG TABLET PO (08:07)
[2023-05-09] MEDS: Empagliflozin 10 MG TABLET PO (08:07)
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
[2023-05-09] MEDS: Calcium Carbonate 750 MG TAB.CHEW PO (14:03)
[2023-05-09 19:30] VITALS: BP 137/63; PULSE 66; RESP 18; TEMP 36.3; O2SAT 99
[2023-05-09 19:43] LABS: Glucose, Whole Blood 158 mg/dL (60-115)
[2023-05-09] MEDS: Atorvastatin Calcium 40 MG TABLET PO (20:03)
[2023-05-09] MEDS: cloZAPine 100 MG TABLET 400 MG PO (20:03)
[2023-05-09] MEDS: metFORMIN HCl 1,000 MG TABLET 1000 MG PO (20:04)
[2023-05-09] MEDS: Insulin Glargine,Hum.rec.anlog 100 UNIT/ML 10 ML VIAL 15 UNIT SUBCUT (20:04)
[2023-05-09] MEDS: traZODone HCL 50 MG TABLET PO (20:04)
[2023-05-10 05:42] LABS: Glucose, Whole Blood 105 mg/dL (60-115)
[2023-05-10 06:00] VITALS: BP 137/63; PULSE 73; RESP 18; TEMP 36.3; O2SAT 98
[2023-05-10] MEDS: metFORMIN HCl ER 500 MG TAB.ER.24H PO (08:22)
[2023-05-10] MEDS: methIMAzole 10 MG TABLET PO (08:22)
[2023-05-10] MEDS: lisinopriL 10 MG TABLET PO (08:22)
[2023-05-10] MEDS: ARIPiprazole 20 MG TABLET PO (08:22)
[2023-05-10] MEDS: Cholecalciferol (Vitamin D3) 25 MCG TABLET PO (08:22)
[2023-05-10] MEDS: cloZAPine 25 MG TABLET 75 MG PO (08:22)
[2023-05-10] MEDS: Folic Acid 1 MG TABLET PO (08:22)
[2023-05-10] MEDS: Metoprolol Tartrate 50 MG TABLET PO ×2 (08:22→21:21)
[2023-05-10] MEDS: Empagliflozin 10 MG TABLET PO (08:22)
[2023-05-10 08:30] LABS: Neut%MD 65.1 %; Neutrophils Absolute Auto 5.6 x10*3/uL (2.0-8.3); WBCANC 8.6 X10*3/uL
[2023-05-10] MEDS: Calcium Carbonate 750 MG TAB.CHEW PO (15:22)
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
[2023-05-10 20:46] LABS: Glucose, Whole Blood 155 mg/dL (60-115)
[2023-05-10 21:20] VITALS: BP 133/65; PULSE 79; RESP 18; TEMP 36.2; O2SAT 97
[2023-05-10] MEDS: cloZAPine 100 MG TABLET 400 MG PO (21:21)
[2023-05-10] MEDS: Atorvastatin Calcium 40 MG TABLET PO (21:21)
[2023-05-10] MEDS: metFORMIN HCl 1,000 MG TABLET 1000 MG PO (21:21)
[2023-05-10] MEDS: Insulin Glargine,Hum.rec.anlog 100 UNIT/ML 10 ML VIAL 15 UNIT SUBCUT (21:24)
[2023-05-11 05:51] LABS: Glucose, Whole Blood 113 mg/dL (60-115)
[2023-05-11 06:00] VITALS: BP 118/65; PULSE 98; RESP 16; TEMP 36.6; O2SAT 97
[2023-05-11] MEDS: Empagliflozin 10 MG TABLET PO (08:36)
[2023-05-11] MEDS: cloZAPine 25 MG TABLET 75 MG PO (08:36)
[2023-05-11] MEDS: Cholecalciferol (Vitamin D3) 25 MCG TABLET PO (08:36)
[2023-05-11] MEDS: ARIPiprazole 20 MG TABLET PO (08:36)
[2023-05-11] MEDS: metFORMIN HCl ER 500 MG TAB.ER.24H PO (08:36)
[2023-05-11] MEDS: methIMAzole 10 MG TABLET PO (08:37)
[2023-05-11] MEDS: lisinopriL 10 MG TABLET PO (08:37)
[2023-05-11] MEDS: Folic Acid 1 MG TABLET PO (08:37)
[2023-05-11] MEDS: Calcium Carbonate 750 MG TAB.CHEW PO ×2 (08:37→16:45)
[2023-05-11] MEDS: Metoprolol Tartrate 50 MG TABLET PO ×2 (08:37→20:58)
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
[2023-05-11 18:00] VITALS: BP 114/58; PULSE 75; RESP 18; TEMP 36.4; O2SAT 99
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
[2023-05-11 20:12] LABS: Glucose, Whole Blood 186 mg/dL (60-115)
[2023-05-11] MEDS: metFORMIN HCl 1,000 MG TABLET 1000 MG PO (20:58)
[2023-05-11] MEDS: hydrOXYzine HCL 25 MG TABLET PO (20:58)
[2023-05-11] MEDS: traZODone HCL 50 MG TABLET PO (20:59)
[2023-05-11] MEDS: Insulin Glargine,Hum.rec.anlog 100 UNIT/ML 10 ML VIAL 15 UNIT SUBCUT (20:59)
[2023-05-11] MEDS: Atorvastatin Calcium 40 MG TABLET PO (20:59)
[2023-05-11] MEDS: cloZAPine 100 MG TABLET 400 MG PO (20:59)
[2023-05-12] MEDS: Calcium Carbonate 750 MG TAB.CHEW PO ×2 (06:39→16:59)
[2023-05-12 06:58] LABS: Glucose, Whole Blood 109 mg/dL (60-115)
[2023-05-12 08:00] VITALS: BP 149/67; PULSE 94; RESP 18; TEMP 36.3; O2SAT 98
[2023-05-12] MEDS: cloZAPine 100 MG TABLET PO (08:12)
[2023-05-12] MEDS: Metoprolol Tartrate 50 MG TABLET PO ×2 (08:12→20:34)
[2023-05-12] MEDS: metFORMIN HCl ER 500 MG TAB.ER.24H PO (08:13)
[2023-05-12] MEDS: Cholecalciferol (Vitamin D3) 25 MCG TABLET PO (08:13)
[2023-05-12] MEDS: lisinopriL 10 MG TABLET PO (08:13)
[2023-05-12] MEDS: Empagliflozin 10 MG TABLET PO (08:13)
[2023-05-12] MEDS: Folic Acid 1 MG TABLET PO (08:13)
[2023-05-12] MEDS: ARIPiprazole 20 MG TABLET PO (08:13)
[2023-05-12] MEDS: methIMAzole 10 MG TABLET PO (08:36)
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
[2023-05-12 18:00] VITALS: BP 135/64; PULSE 71; RESP 18; TEMP 36.7; O2SAT 98
[2023-05-12 19:42] LABS: Glucose, Whole Blood 145 mg/dL (60-115)
[2023-05-12] MEDS: Atorvastatin Calcium 40 MG TABLET PO (20:33)
[2023-05-12] MEDS: metFORMIN HCl 1,000 MG TABLET 1000 MG PO (20:33)
[2023-05-12] MEDS: cloZAPine 100 MG TABLET 400 MG PO (20:33)
[2023-05-12] MEDS: Insulin Glargine,Hum.rec.anlog 100 UNIT/ML 10 ML VIAL 15 UNIT SUBCUT (20:36)
[2023-05-13 06:25] LABS: Glucose, Whole Blood 114 mg/dL (60-115)
[2023-05-13 07:00] VITALS: BMI 29.1
[2023-05-13 07:33] VITALS: BP 140/65; PULSE 80; RESP 18; TEMP 36.2; O2SAT 97
[2023-05-13] MEDS: Cholecalciferol (Vitamin D3) 25 MCG TABLET PO (08:19)
[2023-05-13] MEDS: metFORMIN HCl ER 500 MG TAB.ER.24H PO (08:19)
[2023-05-13] MEDS: ARIPiprazole 20 MG TABLET PO (08:19)
[2023-05-13] MEDS: cloZAPine 100 MG TABLET PO (08:19)
[2023-05-13] MEDS: Metoprolol Tartrate 50 MG TABLET PO ×2 (08:20→20:03)
[2023-05-13] MEDS: Empagliflozin 10 MG TABLET PO (08:20)
[2023-05-13] MEDS: Folic Acid 1 MG TABLET PO (08:20)
[2023-05-13] MEDS: lisinopriL 10 MG TABLET PO (08:20)
[2023-05-13] MEDS: Calcium Carbonate 750 MG TAB.CHEW PO ×2 (08:42→23:07)
[2023-05-13] MEDS: methIMAzole 10 MG TABLET PO (09:53)
[2023-05-13] MEDS: Acetaminophen 325 MG TABLET 650 MG PO (13:57)
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
[2023-05-13 19:44] LABS: Glucose, Whole Blood 136 mg/dL (60-115)
[2023-05-13 20:00] VITALS: BP 125/60; PULSE 71; RESP 18; TEMP 36.1; O2SAT 98
[2023-05-13] MEDS: Insulin Glargine,Hum.rec.anlog 100 UNIT/ML 10 ML VIAL 15 UNIT SUBCUT (20:02)
[2023-05-13] MEDS: Atorvastatin Calcium 40 MG TABLET PO (20:03)
[2023-05-13] MEDS: metFORMIN HCl 1,000 MG TABLET 1000 MG PO (20:03)
[2023-05-13] MEDS: cloZAPine 100 MG TABLET 400 MG PO (20:03)
[2023-05-13] MEDS: traZODone HCL 50 MG TABLET PO (20:03)
[2023-05-14 06:02] LABS: Glucose, Whole Blood 96 mg/dL (60-115)
[2023-05-14 08:22] VITALS: BP 143/63; PULSE 87; RESP 20; TEMP 36.3; O2SAT 98
[2023-05-14] MEDS: methIMAzole 10 MG TABLET PO (08:25)
[2023-05-14] MEDS: cloZAPine 100 MG TABLET PO (08:25)
[2023-05-14] MEDS: lisinopriL 10 MG TABLET PO (08:25)
[2023-05-14] MEDS: Folic Acid 1 MG TABLET PO (08:25)
[2023-05-14] MEDS: ARIPiprazole 20 MG TABLET PO (08:25)
[2023-05-14] MEDS: Empagliflozin 10 MG TABLET PO (08:25)
[2023-05-14] MEDS: Metoprolol Tartrate 50 MG TABLET PO ×2 (08:25→21:09)
[2023-05-14] MEDS: metFORMIN HCl ER 500 MG TAB.ER.24H PO (08:25)
[2023-05-14] MEDS: Cholecalciferol (Vitamin D3) 25 MCG TABLET PO (08:25)
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
[2023-05-14 11:35] LABS: Creatinine Clr Calc Pharmacy 77.2; Estimated Glomerular Filt Rate > 60
[2023-05-14 18:00] VITALS: BP 107/62; PULSE 77; RESP 18; TEMP 36.4; O2SAT 97
[2023-05-14 20:19] LABS: Glucose, Whole Blood 164 mg/dL (60-115)
[2023-05-14] MEDS: Atorvastatin Calcium 40 MG TABLET PO (21:08)
[2023-05-14] MEDS: cloZAPine 100 MG TABLET 400 MG PO (21:09)
[2023-05-14] MEDS: metFORMIN HCl 1,000 MG TABLET 1000 MG PO (21:10)
[2023-05-14] MEDS: Insulin Glargine,Hum.rec.anlog 100 UNIT/ML 10 ML VIAL 15 UNIT SUBCUT (21:10)
[2023-05-15 06:25] LABS: Glucose, Whole Blood 77 mg/dL (60-115)
[2023-05-15 08:10] VITALS: BP 122/68; PULSE 76; RESP 18; TEMP 36.6; O2SAT 98
[2023-05-15] MEDS: Cholecalciferol (Vitamin D3) 25 MCG TABLET PO (08:49)
[2023-05-15] MEDS: Folic Acid 1 MG TABLET PO (08:49)
[2023-05-15] MEDS: metFORMIN HCl ER 500 MG TAB.ER.24H PO (08:49)
[2023-05-15] MEDS: Empagliflozin 10 MG TABLET PO (08:49)
[2023-05-15] MEDS: cloZAPine 100 MG TABLET PO (08:49)
[2023-05-15] MEDS: methIMAzole 10 MG TABLET PO (08:49)
[2023-05-15] MEDS: lisinopriL 10 MG TABLET PO (08:49)
[2023-05-15] MEDS: Metoprolol Tartrate 50 MG TABLET PO ×2 (08:49→20:56)
[2023-05-15] MEDS: ARIPiprazole 20 MG TABLET PO (08:49)
[2023-05-15] MEDS: Calcium Carbonate 750 MG TAB.CHEW PO ×2 (09:03→16:43)
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
[2023-05-15 18:00] VITALS: BP 117/62; PULSE 69; RESP 18; TEMP 36.4; O2SAT 99
[2023-05-15 19:49] LABS: Glucose, Whole Blood 161 mg/dL (60-115)
[2023-05-15] MEDS: metFORMIN HCl 1,000 MG TABLET 1000 MG PO (20:56)
[2023-05-15] MEDS: cloZAPine 100 MG TABLET 400 MG PO (20:56)
[2023-05-15] MEDS: Atorvastatin Calcium 40 MG TABLET PO (20:56)
[2023-05-15] MEDS: Insulin Glargine,Hum.rec.anlog 100 UNIT/ML 10 ML VIAL 15 UNIT SUBCUT (21:33)
[2023-05-16 06:39] LABS: Glucose, Whole Blood 88 mg/dL (60-115)
[2023-05-16] MEDS: Calcium Carbonate 750 MG TAB.CHEW PO ×2 (06:49→12:22)
[2023-05-16 08:00] VITALS: BP 140/70; PULSE 79; RESP 18; TEMP 36.8; O2SAT 99
[2023-05-16] MEDS: cloZAPine 100 MG TABLET PO (08:08)
[2023-05-16] MEDS: Empagliflozin 10 MG TABLET PO (08:08)
[2023-05-16] MEDS: lisinopriL 10 MG TABLET PO (08:08)
[2023-05-16] MEDS: Metoprolol Tartrate 50 MG TABLET PO ×2 (08:08→20:26)
[2023-05-16] MEDS: Folic Acid 1 MG TABLET PO (08:08)
[2023-05-16] MEDS: Cholecalciferol (Vitamin D3) 25 MCG TABLET PO (08:08)
[2023-05-16] MEDS: methIMAzole 10 MG TABLET PO (08:08)
[2023-05-16] MEDS: ARIPiprazole 20 MG TABLET PO (08:08)
[2023-05-16] MEDS: metFORMIN HCl ER 500 MG TAB.ER.24H PO (08:08)
[2023-05-16 11:25] LABS: Glucose, Whole Blood 111 mg/dL (60-115)
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
[2023-05-16 18:00] VITALS: BP 127/58; PULSE 73; RESP 18; TEMP 36.3; O2SAT 96
[2023-05-16] MEDS: Atorvastatin Calcium 40 MG TABLET PO (20:25)
[2023-05-16] MEDS: cloZAPine 100 MG TABLET 400 MG PO (20:25)
[2023-05-16] MEDS: metFORMIN HCl 1,000 MG TABLET 1000 MG PO (20:26)
[2023-05-16] MEDS: Insulin Glargine,Hum.rec.anlog 100 UNIT/ML 10 ML VIAL 15 UNIT SUBCUT (21:11)
[2023-05-16 21:23] LABS: Glucose, Whole Blood 138 mg/dL (60-115)
[2023-05-17 06:00] VITALS: BP 120/65; PULSE 77; RESP 18; TEMP 36.4; O2SAT 96
[2023-05-17] MEDS: Calcium Carbonate 750 MG TAB.CHEW PO ×2 (06:16→12:46)
[2023-05-17 06:27] LABS: Glucose, Whole Blood 109 mg/dL (60-115)
[2023-05-17] MEDS: Cholecalciferol (Vitamin D3) 25 MCG TABLET PO (09:01)
[2023-05-17] MEDS: Metoprolol Tartrate 50 MG TABLET PO ×2 (09:01→19:44)
[2023-05-17] MEDS: Folic Acid 1 MG TABLET PO (09:01)
[2023-05-17] MEDS: lisinopriL 10 MG TABLET PO (09:01)
[2023-05-17] MEDS: Empagliflozin 10 MG TABLET PO (09:01)
[2023-05-17] MEDS: cloZAPine 100 MG TABLET PO (09:01)
[2023-05-17] MEDS: methIMAzole 10 MG TABLET PO (09:01)
[2023-05-17] MEDS: ARIPiprazole 20 MG TABLET PO (09:01)
[2023-05-17] MEDS: metFORMIN HCl ER 500 MG TAB.ER.24H PO (09:01)
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
[2023-05-17 18:11] LABS: Neut%MD 59.6 %; Neutrophils Absolute Auto 5.8 x10*3/uL (2.0-8.3); WBCANC 9.8 X10*3/uL
[2023-05-17 19:31] LABS: Glucose, Whole Blood 161 mg/dL (60-115)
[2023-05-17] MEDS: cloZAPine 100 MG TABLET 400 MG PO (19:43)
[2023-05-17] MEDS: metFORMIN HCl 1,000 MG TABLET 1000 MG PO (19:44)
[2023-05-17] MEDS: Insulin Glargine,Hum.rec.anlog 100 UNIT/ML 10 ML VIAL 15 UNIT SUBCUT (19:44)
[2023-05-17] MEDS: Atorvastatin Calcium 40 MG TABLET PO (19:44)
[2023-05-17] MEDS: traZODone HCL 50 MG TABLET PO (19:44)
[2023-05-17 21:00] VITALS: BP 112/55; PULSE 76; RESP 18; TEMP 37; O2SAT 97
[2023-05-18 05:57] LABS: Glucose, Whole Blood 98 mg/dL (60-115)
[2023-05-18 08:47] VITALS: BP 145/61; PULSE 58; RESP 18; TEMP 35.4; O2SAT 100
[2023-05-18] MEDS: lisinopriL 10 MG TABLET PO (08:50)
[2023-05-18] MEDS: Empagliflozin 10 MG TABLET PO (08:50)
[2023-05-18] MEDS: Metoprolol Tartrate 50 MG TABLET PO ×2 (08:50→20:36)
[2023-05-18] MEDS: Folic Acid 1 MG TABLET PO (08:50)
[2023-05-18] MEDS: metFORMIN HCl ER 500 MG TAB.ER.24H PO (08:50)
[2023-05-18] MEDS: Cholecalciferol (Vitamin D3) 25 MCG TABLET PO (08:50)
[2023-05-18] MEDS: methIMAzole 10 MG TABLET PO (08:51)
[2023-05-18] MEDS: ARIPiprazole 20 MG TABLET PO (08:51)
[2023-05-18] MEDS: cloZAPine 100 MG TABLET PO (08:51)
[2023-05-18] MEDS: Calcium Carbonate 750 MG TAB.CHEW PO ×2 (08:53→20:36)
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
[2023-05-18 20:15] LABS: Glucose, Whole Blood 154 mg/dL (60-115)
[2023-05-18] MEDS: Insulin Glargine,Hum.rec.anlog 100 UNIT/ML 10 ML VIAL 15 UNIT SUBCUT (20:35)
[2023-05-18] MEDS: metFORMIN HCl 1,000 MG TABLET 1000 MG PO (20:36)
[2023-05-18] MEDS: traZODone HCL 50 MG TABLET PO (20:36)
[2023-05-18] MEDS: cloZAPine 100 MG TABLET 400 MG PO (20:36)
[2023-05-18] MEDS: Atorvastatin Calcium 40 MG TABLET PO (20:37)
[2023-05-18 21:14] VITALS: BP 147/70; PULSE 77; RESP 18; TEMP 36.6; O2SAT 100
[2023-05-19 06:06] LABS: Glucose, Whole Blood 120 mg/dL (60-115)
[2023-05-19 08:34] VITALS: BP 112/58; PULSE 78; RESP 16; TEMP 36.4; O2SAT 98
[2023-05-19] MEDS: ARIPiprazole 20 MG TABLET PO (08:35)
[2023-05-19] MEDS: methIMAzole 10 MG TABLET PO (08:35)
[2023-05-19] MEDS: Folic Acid 1 MG TABLET PO (08:35)
[2023-05-19] MEDS: lisinopriL 10 MG TABLET PO (08:36)
[2023-05-19] MEDS: Metoprolol Tartrate 50 MG TABLET PO ×2 (08:36→21:08)
[2023-05-19] MEDS: cloZAPine 100 MG TABLET PO (08:36)
[2023-05-19] MEDS: Empagliflozin 10 MG TABLET PO (08:36)
[2023-05-19] MEDS: Cholecalciferol (Vitamin D3) 25 MCG TABLET PO (08:36)
[2023-05-19] MEDS: metFORMIN HCl ER 500 MG TAB.ER.24H PO (08:36)
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
[2023-05-19] MEDS: Calcium Carbonate 750 MG TAB.CHEW PO (17:38)
[2023-05-19 18:00] VITALS: BP 115/60; PULSE 68; RESP 18; TEMP 36.7; O2SAT 94
[2023-05-19] MEDS: Insulin Glargine,Hum.rec.anlog 100 UNIT/ML 10 ML VIAL 15 UNIT SUBCUT (21:06)
[2023-05-19] MEDS: cloZAPine 100 MG TABLET 400 MG PO (21:08)
[2023-05-19] MEDS: metFORMIN HCl 1,000 MG TABLET 1000 MG PO (21:08)
[2023-05-19] MEDS: Atorvastatin Calcium 40 MG TABLET PO (21:08)
[2023-05-19 21:34] LABS: Glucose, Whole Blood 107 mg/dL (60-115)
[2023-05-20 06:50] LABS: Glucose, Whole Blood 116 mg/dL (60-115)
[2023-05-20] MEDS: Calcium Carbonate 750 MG TAB.CHEW PO (06:53)
[2023-05-20 08:00] VITALS: BP 120/60; PULSE 80; RESP 18; TEMP 36.6; O2SAT 97
[2023-05-20] MEDS: Folic Acid 1 MG TABLET PO (08:18)
[2023-05-20] MEDS: cloZAPine 100 MG TABLET PO (08:18)
[2023-05-20] MEDS: methIMAzole 10 MG TABLET PO (08:18)
[2023-05-20] MEDS: Cholecalciferol (Vitamin D3) 25 MCG TABLET PO (08:18)
[2023-05-20] MEDS: Metoprolol Tartrate 50 MG TABLET PO ×2 (08:18→20:04)
[2023-05-20] MEDS: Empagliflozin 10 MG TABLET PO (08:18)
[2023-05-20] MEDS: ARIPiprazole 20 MG TABLET PO (08:18)
[2023-05-20] MEDS: metFORMIN HCl ER 500 MG TAB.ER.24H PO (08:18)
[2023-05-20] MEDS: lisinopriL 10 MG TABLET PO (08:18)
[2023-05-20] MEDS: Famotidine 20 MG TABLET PO (09:43)
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
[2023-05-20 18:00] VITALS: BP 110/59; PULSE 79; RESP 18; TEMP 36.3; O2SAT 99
[2023-05-20 19:50] LABS: Glucose, Whole Blood 117 mg/dL (60-115)
[2023-05-20] MEDS: cloZAPine 100 MG TABLET 400 MG PO (20:03)
[2023-05-20] MEDS: Atorvastatin Calcium 40 MG TABLET PO (20:04)
[2023-05-20] MEDS: metFORMIN HCl 1,000 MG TABLET 1000 MG PO (20:05)
[2023-05-20] MEDS: Insulin Glargine,Hum.rec.anlog 100 UNIT/ML 10 ML VIAL 15 UNIT SUBCUT (20:05)
[2023-05-20] MEDS: Magnesium Hydrox/Alum Hydrox 30 ML ORAL.SUSP PO (20:06)
[2023-05-21] MEDS: Omeprazole 20 MG CAPSULE.DR PO (05:47)
[2023-05-21 06:29] LABS: Glucose, Whole Blood 96 mg/dL (60-115)
[2023-05-21 08:17] LABS: Creatinine Clr Calc Pharmacy 76.1; Estimated Glomerular Filt Rate > 60
[2023-05-21 08:21] VITALS: BP 115/57; PULSE 74; RESP 17; TEMP 36.5; O2SAT 99
[2023-05-21] MEDS: ARIPiprazole 20 MG TABLET PO (08:23)
[2023-05-21] MEDS: Metoprolol Tartrate 50 MG TABLET PO ×2 (08:23→20:13)
[2023-05-21] MEDS: methIMAzole 10 MG TABLET PO (08:23)
[2023-05-21] MEDS: lisinopriL 10 MG TABLET PO (08:23)
[2023-05-21] MEDS: metFORMIN HCl ER 500 MG TAB.ER.24H PO (08:23)
[2023-05-21] MEDS: Cholecalciferol (Vitamin D3) 25 MCG TABLET PO (08:23)
[2023-05-21] MEDS: cloZAPine 100 MG TABLET PO (08:23)
[2023-05-21] MEDS: Folic Acid 1 MG TABLET PO (08:23)
[2023-05-21] MEDS: Empagliflozin 10 MG TABLET PO (08:23)
[2023-05-21] MEDS: Famotidine 20 MG TABLET PO (08:23)
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
[2023-05-21 19:50] LABS: Glucose, Whole Blood 124 mg/dL (60-115)
[2023-05-21] MEDS: metFORMIN HCl 1,000 MG TABLET 1000 MG PO (20:13)
[2023-05-21] MEDS: Atorvastatin Calcium 40 MG TABLET PO (20:13)
[2023-05-21] MEDS: cloZAPine 100 MG TABLET 400 MG PO (20:13)
[2023-05-21] MEDS: Insulin Glargine,Hum.rec.anlog 100 UNIT/ML 10 ML VIAL 15 UNIT SUBCUT (20:14)
[2023-05-21] MEDS: traZODone HCL 50 MG TABLET PO (20:14)
[2023-05-21 20:17] VITALS: BP 131/63; PULSE 63; RESP 17; TEMP 36.4; O2SAT 97
[2023-05-22] MEDS: Omeprazole 20 MG CAPSULE.DR PO (05:42)
[2023-05-22 05:46] LABS: Glucose, Whole Blood 99 mg/dL (60-115)
[2023-05-22 08:55] VITALS: BP 146/66; PULSE 93; RESP 18; TEMP 36.6; O2SAT 97
[2023-05-22] MEDS: cloZAPine 100 MG TABLET PO (08:57)
[2023-05-22] MEDS: Folic Acid 1 MG TABLET PO (08:57)
[2023-05-22] MEDS: Cholecalciferol (Vitamin D3) 25 MCG TABLET PO (08:57)
[2023-05-22] MEDS: Famotidine 20 MG TABLET PO (08:57)
[2023-05-22] MEDS: lisinopriL 10 MG TABLET PO (08:57)
[2023-05-22] MEDS: ARIPiprazole 20 MG TABLET PO (08:57)
[2023-05-22] MEDS: methIMAzole 10 MG TABLET PO (08:58)
[2023-05-22] MEDS: Empagliflozin 10 MG TABLET PO (08:58)
[2023-05-22] MEDS: metFORMIN HCl ER 500 MG TAB.ER.24H PO (08:58)
[2023-05-22] MEDS: Metoprolol Tartrate 50 MG TABLET PO ×2 (08:58→20:05)
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
[2023-05-22] MEDS: clonazePAM 1 MG TABLET PO (11:56)
[2023-05-22] MEDS: Magnesium Hydrox/Alum Hydrox 30 ML ORAL.SUSP PO (11:59)
[2023-05-22] MEDS: Acetaminophen 325 MG TABLET 650 MG PO (17:19)
[2023-05-22 19:47] LABS: Glucose, Whole Blood 103 mg/dL (60-115)
[2023-05-22 20:03] VITALS: BP 148/69; PULSE 65; RESP 16; TEMP 36.9; O2SAT 95
[2023-05-22] MEDS: traZODone HCL 50 MG TABLET PO (20:05)
[2023-05-22] MEDS: cloZAPine 100 MG TABLET 400 MG PO (20:05)
[2023-05-22] MEDS: metFORMIN HCl 1,000 MG TABLET 1000 MG PO (20:05)
[2023-05-22] MEDS: Atorvastatin Calcium 40 MG TABLET PO (20:06)
[2023-05-22] MEDS: Insulin Glargine,Hum.rec.anlog 100 UNIT/ML 10 ML VIAL 15 UNIT SUBCUT (20:06)
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
[2023-05-23] MEDS: Omeprazole 20 MG CAPSULE.DR PO (05:40)
[2023-05-23 06:20] LABS: Glucose, Whole Blood 123 mg/dL (60-115)
[2023-05-23 07:55] VITALS: BP 142/70; PULSE 74; RESP 18; TEMP 36.7; O2SAT 96
[2023-05-23] MEDS: methIMAzole 10 MG TABLET PO (08:39)
[2023-05-23] MEDS: Folic Acid 1 MG TABLET PO (08:39)
[2023-05-23] MEDS: Empagliflozin 10 MG TABLET PO (08:39)
[2023-05-23] MEDS: Famotidine 20 MG TABLET PO (08:39)
[2023-05-23] MEDS: metFORMIN HCl ER 500 MG TAB.ER.24H PO (08:39)
[2023-05-23] MEDS: cloZAPine 100 MG TABLET PO (08:39)
[2023-05-23] MEDS: Cholecalciferol (Vitamin D3) 25 MCG TABLET PO (08:40)
[2023-05-23] MEDS: ARIPiprazole 20 MG TABLET PO (08:40)
[2023-05-23] MEDS: lisinopriL 10 MG TABLET PO (08:40)
[2023-05-23] MEDS: Metoprolol Tartrate 50 MG TABLET PO ×2 (08:40→19:41)
[2023-05-23 18:00] VITALS: BP 151/70; PULSE 73; RESP 17; TEMP 36.1; O2SAT 98
[2023-05-23 19:29] LABS: Glucose, Whole Blood 143 mg/dL (60-115)
[2023-05-23] MEDS: cloZAPine 100 MG TABLET 400 MG PO (19:40)
[2023-05-23] MEDS: Atorvastatin Calcium 40 MG TABLET PO (19:41)
[2023-05-23] MEDS: traZODone HCL 50 MG TABLET PO (19:41)
[2023-05-23] MEDS: metFORMIN HCl 1,000 MG TABLET 1000 MG PO (19:41)
[2023-05-23] MEDS: Insulin Glargine,Hum.rec.anlog 100 UNIT/ML 10 ML VIAL 15 UNIT SUBCUT (19:41)
[2023-05-24] MEDS: Omeprazole 20 MG CAPSULE.DR PO (05:49)
[2023-05-24 06:02] LABS: Glucose, Whole Blood 129 mg/dL (60-115)
[2023-05-24 07:45] VITALS: BP 107/55; PULSE 75; RESP 16; TEMP 35.9; O2SAT 97
[2023-05-24] MEDS: Famotidine 20 MG TABLET PO (08:33)
[2023-05-24] MEDS: ARIPiprazole 20 MG TABLET PO (08:33)
[2023-05-24] MEDS: Folic Acid 1 MG TABLET PO (08:33)
[2023-05-24] MEDS: metFORMIN HCl ER 500 MG TAB.ER.24H PO (08:33)
[2023-05-24] MEDS: lisinopriL 10 MG TABLET PO (08:33)
[2023-05-24] MEDS: Metoprolol Tartrate 50 MG TABLET PO ×2 (08:33→20:37)
[2023-05-24] MEDS: Cholecalciferol (Vitamin D3) 25 MCG TABLET PO (08:34)
[2023-05-24] MEDS: methIMAzole 10 MG TABLET PO (08:34)
[2023-05-24] MEDS: Empagliflozin 10 MG TABLET PO (08:34)
[2023-05-24] MEDS: cloZAPine 100 MG TABLET PO (08:34)
[2023-05-24 09:50] LABS: Neut%MD 66.3 %; WBCANC 7.5 X10*3/uL
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
[2023-05-24] MEDS: clonazePAM 1 MG TABLET PO ×2 (15:54→20:37)
--- NOTE | 2023-05-24 15:55 | PC.NURSE ---
Patient complaining of anxiety 07/25 requested Klonopin. Klonopin given at 1554, effect pending.
[2023-05-24] MEDS: Insulin Glargine,Hum.rec.anlog 100 UNIT/ML 10 ML VIAL 15 UNIT SUBCUT (20:35)
[2023-05-24] MEDS: cloZAPine 100 MG TABLET 400 MG PO (20:36)
[2023-05-24] MEDS: hydrOXYzine HCL 25 MG TABLET PO (20:37)
[2023-05-24] MEDS: metFORMIN HCl 1,000 MG TABLET 1000 MG PO (20:37)
[2023-05-24] MEDS: Milk of Magnesia 30 ML ORAL.SUSP PO (20:43)
[2023-05-24 20:47] LABS: Glucose, Whole Blood 161 mg/dL (60-115)
[2023-05-24 23:39] LABS: Clozapine (Clozaril) 617 mcg/L; Norclozapine 332 mcg/L (25-400)
[2023-05-25] MEDS: Omeprazole 20 MG CAPSULE.DR PO (06:05)
[2023-05-25 06:26] LABS: Glucose, Whole Blood 111 mg/dL (60-115)
[2023-05-25 07:00] VITALS: BP 163/77; PULSE 62; RESP 18; TEMP 35.5; O2SAT 98
[2023-05-25] MEDS: lisinopriL 10 MG TABLET PO (08:42)
[2023-05-25] MEDS: Cholecalciferol (Vitamin D3) 25 MCG TABLET PO (08:42)
[2023-05-25] MEDS: cloZAPine 100 MG TABLET PO (08:42)
[2023-05-25] MEDS: Empagliflozin 10 MG TABLET PO (08:43)
[2023-05-25] MEDS: Folic Acid 1 MG TABLET PO (08:43)
[2023-05-25] MEDS: Metoprolol Tartrate 50 MG TABLET PO ×2 (08:43→20:19)
[2023-05-25] MEDS: Famotidine 20 MG TABLET PO (08:43)
[2023-05-25] MEDS: ARIPiprazole 20 MG TABLET PO (08:44)
[2023-05-25] MEDS: metFORMIN HCl ER 500 MG TAB.ER.24H PO (08:44)
[2023-05-25] MEDS: methIMAzole 10 MG TABLET PO (08:44)
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
[2023-05-25 20:15] LABS: Glucose, Whole Blood 142 mg/dL (60-115)
[2023-05-25] MEDS: traZODone HCL 50 MG TABLET PO (20:19)
[2023-05-25] MEDS: cloZAPine 100 MG TABLET 400 MG PO (20:20)
[2023-05-25] MEDS: Atorvastatin Calcium 40 MG TABLET PO (20:21)
[2023-05-25] MEDS: metFORMIN HCl 1,000 MG TABLET 1000 MG PO (20:21)
[2023-05-25] MEDS: clonazePAM 1 MG TABLET PO (20:21)
[2023-05-25] MEDS: hydrOXYzine HCL 25 MG TABLET PO (20:21)
[2023-05-25] MEDS: Insulin Glargine,Hum.rec.anlog 100 UNIT/ML 10 ML VIAL 15 UNIT SUBCUT (20:22)
[2023-05-25] MEDS: Milk of Magnesia 30 ML ORAL.SUSP PO (20:36)
[2023-05-26 06:00] VITALS: BP 138/63; PULSE 70; RESP 18; TEMP 36.4; O2SAT 97
[2023-05-26 06:27] LABS: Glucose, Whole Blood 116 mg/dL (60-115)
[2023-05-26] MEDS: Omeprazole 20 MG CAPSULE.DR PO (07:10)
[2023-05-26] MEDS: lisinopriL 10 MG TABLET PO (09:35)
[2023-05-26] MEDS: Famotidine 20 MG TABLET PO (09:35)
[2023-05-26] MEDS: methIMAzole 10 MG TABLET PO (09:35)
[2023-05-26] MEDS: Cholecalciferol (Vitamin D3) 25 MCG TABLET PO (09:35)
[2023-05-26] MEDS: Folic Acid 1 MG TABLET PO (09:35)
[2023-05-26] MEDS: cloZAPine 100 MG TABLET PO (09:35)
[2023-05-26] MEDS: metFORMIN HCl ER 500 MG TAB.ER.24H PO (09:35)
[2023-05-26] MEDS: Metoprolol Tartrate 50 MG TABLET PO ×2 (09:35→21:09)
[2023-05-26] MEDS: Empagliflozin 10 MG TABLET PO (09:35)
[2023-05-26] MEDS: ARIPiprazole 20 MG TABLET PO (09:35)
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
[2023-05-26 18:00] VITALS: BP 107/58; PULSE 68; RESP 18; TEMP 36.6; O2SAT 98
[2023-05-26] MEDS: cloZAPine 100 MG TABLET 400 MG PO (21:08)
[2023-05-26] MEDS: Atorvastatin Calcium 40 MG TABLET PO (21:08)
[2023-05-26] MEDS: metFORMIN HCl 1,000 MG TABLET 1000 MG PO (21:09)
[2023-05-26 21:16] LABS: Glucose, Whole Blood 171 mg/dL (60-115)
[2023-05-26] MEDS: Insulin Glargine,Hum.rec.anlog 100 UNIT/ML 10 ML VIAL 15 UNIT SUBCUT (21:29)
[2023-05-27 06:00] VITALS: BP 145/66; PULSE 82; RESP 20; TEMP 36.4; O2SAT 100
[2023-05-27] MEDS: Omeprazole 20 MG CAPSULE.DR PO (06:24)
[2023-05-27 06:29] LABS: Glucose, Whole Blood 123 mg/dL (60-115)
[2023-05-27 07:00] VITALS: BMI 29.2
[2023-05-27] MEDS: metFORMIN HCl ER 500 MG TAB.ER.24H PO (08:39)
[2023-05-27] MEDS: lisinopriL 10 MG TABLET PO (08:39)
[2023-05-27] MEDS: Cholecalciferol (Vitamin D3) 25 MCG TABLET PO (08:39)
[2023-05-27] MEDS: Famotidine 20 MG TABLET PO (08:39)
[2023-05-27] MEDS: cloZAPine 100 MG TABLET PO (08:39)
[2023-05-27] MEDS: methIMAzole 10 MG TABLET PO (08:39)
[2023-05-27] MEDS: Folic Acid 1 MG TABLET PO (08:39)
[2023-05-27] MEDS: Metoprolol Tartrate 50 MG TABLET PO ×2 (08:39→20:22)
[2023-05-27] MEDS: ARIPiprazole 20 MG TABLET PO (08:40)
[2023-05-27] MEDS: Empagliflozin 10 MG TABLET PO (08:40)
[2023-05-27] MEDS: clonazePAM 1 MG TABLET PO (08:42)
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
[2023-05-27 20:01] LABS: Glucose, Whole Blood 177 mg/dL (60-115)
[2023-05-27 20:20] VITALS: BP 100/56; PULSE 67; RESP 17; TEMP 36; O2SAT 99
[2023-05-27] MEDS: Insulin Glargine,Hum.rec.anlog 100 UNIT/ML 10 ML VIAL 15 UNIT SUBCUT (20:22)
[2023-05-27] MEDS: metFORMIN HCl 1,000 MG TABLET 1000 MG PO (20:22)
[2023-05-27] MEDS: traZODone HCL 50 MG TABLET PO (20:22)
[2023-05-27] MEDS: Atorvastatin Calcium 40 MG TABLET PO (20:22)
[2023-05-27] MEDS: cloZAPine 100 MG TABLET 400 MG PO (20:22)
[2023-05-28] MEDS: Omeprazole 20 MG CAPSULE.DR PO (05:49)
[2023-05-28 05:58] LABS: Glucose, Whole Blood 114 mg/dL (60-115)
[2023-05-28 06:00] VITALS: BP 134/76; PULSE 74; RESP 18; TEMP 36.2; O2SAT 99
[2023-05-28] MEDS: Famotidine 20 MG TABLET PO (08:16)
[2023-05-28] MEDS: metFORMIN HCl ER 500 MG TAB.ER.24H PO (08:16)
[2023-05-28] MEDS: Cholecalciferol (Vitamin D3) 25 MCG TABLET PO (08:16)
[2023-05-28] MEDS: lisinopriL 10 MG TABLET PO (08:16)
[2023-05-28] MEDS: cloZAPine 100 MG TABLET PO (08:16)
[2023-05-28] MEDS: ARIPiprazole 20 MG TABLET PO (08:16)
[2023-05-28] MEDS: Empagliflozin 10 MG TABLET PO (08:16)
[2023-05-28] MEDS: Folic Acid 1 MG TABLET PO (08:16)
[2023-05-28] MEDS: methIMAzole 10 MG TABLET PO (08:16)
[2023-05-28] MEDS: Metoprolol Tartrate 50 MG TABLET PO ×2 (08:16→20:07)
[2023-05-28 08:27] LABS: Creatinine Clr Calc Pharmacy 68.4; Estimated Glomerular Filt Rate > 60
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
[2023-05-28 18:00] VITALS: BP 126/60; PULSE 68; RESP 18; TEMP 35.8; O2SAT 97
[2023-05-28] MEDS: Atorvastatin Calcium 40 MG TABLET PO (20:07)
[2023-05-28] MEDS: clonazePAM 1 MG TABLET PO (20:08)
[2023-05-28] MEDS: Insulin Glargine,Hum.rec.anlog 100 UNIT/ML 10 ML VIAL 15 UNIT SUBCUT (20:08)
[2023-05-28] MEDS: metFORMIN HCl 1,000 MG TABLET 1000 MG PO (20:08)
[2023-05-28] MEDS: cloZAPine 100 MG TABLET 400 MG PO (20:08)
[2023-05-28 20:23] LABS: Glucose, Whole Blood 150 mg/dL (60-115)
[2023-05-29 06:19] LABS: Glucose, Whole Blood 126 mg/dL (60-115)
[2023-05-29] MEDS: Omeprazole 20 MG CAPSULE.DR PO (06:44)
[2023-05-29 08:00] VITALS: BP 120/62; PULSE 72; RESP 18; TEMP 36.6; O2SAT 97
[2023-05-29] MEDS: lisinopriL 10 MG TABLET PO (08:09)
[2023-05-29] MEDS: Cholecalciferol (Vitamin D3) 25 MCG TABLET PO (08:09)
[2023-05-29] MEDS: Folic Acid 1 MG TABLET PO (08:09)
[2023-05-29] MEDS: metFORMIN HCl ER 500 MG TAB.ER.24H PO (08:09)
[2023-05-29] MEDS: Empagliflozin 10 MG TABLET PO (08:09)
[2023-05-29] MEDS: Metoprolol Tartrate 50 MG TABLET PO ×2 (08:09→21:00)
[2023-05-29] MEDS: ARIPiprazole 20 MG TABLET PO (08:09)
[2023-05-29] MEDS: cloZAPine 100 MG TABLET PO (08:10)
[2023-05-29] MEDS: Famotidine 20 MG TABLET PO (08:10)
[2023-05-29] MEDS: methIMAzole 10 MG TABLET PO (08:10)
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
[2023-05-29] MEDS: clonazePAM 1 MG TABLET PO ×2 (12:40→21:00)
[2023-05-29 18:00] VITALS: BP 129/68; PULSE 67; RESP 18; TEMP 36.2; O2SAT 97
[2023-05-29 20:55] LABS: Glucose, Whole Blood 142 mg/dL (60-115)
[2023-05-29] MEDS: cloZAPine 100 MG TABLET 400 MG PO (20:59)
[2023-05-29] MEDS: metFORMIN HCl 1,000 MG TABLET 1000 MG PO (21:00)
[2023-05-29] MEDS: Atorvastatin Calcium 40 MG TABLET PO (21:00)
[2023-05-29] MEDS: Insulin Glargine,Hum.rec.anlog 100 UNIT/ML 10 ML VIAL 15 UNIT SUBCUT (21:01)
[2023-05-30] MEDS: Omeprazole 20 MG CAPSULE.DR PO (05:47)
[2023-05-30 06:21] LABS: Glucose, Whole Blood 122 mg/dL (60-115)
[2023-05-30 08:00] VITALS: BP 117/65; PULSE 83; RESP 18; TEMP 36.6; O2SAT 98
[2023-05-30] MEDS: ARIPiprazole 20 MG TABLET PO (09:38)
[2023-05-30] MEDS: Cholecalciferol (Vitamin D3) 25 MCG TABLET PO (09:38)
[2023-05-30] MEDS: cloZAPine 100 MG TABLET PO (09:38)
[2023-05-30] MEDS: Folic Acid 1 MG TABLET PO (09:38)
[2023-05-30] MEDS: Metoprolol Tartrate 50 MG TABLET PO ×2 (09:38→20:23)
[2023-05-30] MEDS: Famotidine 20 MG TABLET PO (09:38)
[2023-05-30] MEDS: methIMAzole 10 MG TABLET PO (09:38)
[2023-05-30] MEDS: lisinopriL 10 MG TABLET PO (09:38)
[2023-05-30] MEDS: Empagliflozin 10 MG TABLET PO (09:39)
[2023-05-30] MEDS: metFORMIN HCl ER 500 MG TAB.ER.24H PO (09:39)
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
[2023-05-30] MEDS: clonazePAM 1 MG TABLET PO (17:17)
[2023-05-30 20:00] VITALS: BP 130/56; PULSE 61; RESP 18; TEMP 36.8; O2SAT 97
[2023-05-30 20:06] LABS: Glucose, Whole Blood 127 mg/dL (60-115)
[2023-05-30] MEDS: metFORMIN HCl 1,000 MG TABLET 1000 MG PO (20:23)
[2023-05-30] MEDS: Atorvastatin Calcium 40 MG TABLET PO (20:23)
[2023-05-30] MEDS: Insulin Glargine,Hum.rec.anlog 100 UNIT/ML 10 ML VIAL 15 UNIT SUBCUT (20:23)
[2023-05-30] MEDS: cloZAPine 100 MG TABLET 400 MG PO (20:23)
[2023-05-31] MEDS: Omeprazole 20 MG CAPSULE.DR PO (06:11)
[2023-05-31 07:30] LABS: Glucose, Whole Blood 100 mg/dL (60-115)
[2023-05-31 08:16] LABS: Neut%MD 58.7 %; Neutrophils Absolute Auto 4.9 x10*3/uL (2.0-8.3); WBCANC 8.4 X10*3/uL
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
[2023-05-31 08:45] VITALS: BP 108/63; PULSE 83; RESP 18; TEMP 36.2; O2SAT 96
[2023-05-31] MEDS: lisinopriL 10 MG TABLET PO (09:00)
[2023-05-31] MEDS: cloZAPine 100 MG TABLET PO (09:00)
[2023-05-31] MEDS: clonazePAM 0.5 MG TABLET PO (09:00)
[2023-05-31] MEDS: Empagliflozin 10 MG TABLET PO (09:00)
[2023-05-31] MEDS: Folic Acid 1 MG TABLET PO (09:00)
[2023-05-31] MEDS: metFORMIN HCl ER 500 MG TAB.ER.24H PO (09:00)
[2023-05-31] MEDS: methIMAzole 10 MG TABLET PO (09:00)
[2023-05-31] MEDS: Metoprolol Tartrate 50 MG TABLET PO ×2 (09:00→20:29)
[2023-05-31] MEDS: ARIPiprazole 20 MG TABLET PO (09:00)
[2023-05-31] MEDS: Cholecalciferol (Vitamin D3) 25 MCG TABLET PO (09:00)
[2023-05-31] MEDS: Famotidine 20 MG TABLET PO (09:00)
[2023-05-31 19:40] VITALS: BP 128/60; PULSE 62; RESP 18; TEMP 36.1; O2SAT 97
[2023-05-31] MEDS: Atorvastatin Calcium 40 MG TABLET PO (20:29)
[2023-05-31] MEDS: metFORMIN HCl 1,000 MG TABLET 1000 MG PO (20:29)
[2023-05-31] MEDS: Insulin Glargine,Hum.rec.anlog 100 UNIT/ML 10 ML VIAL 15 UNIT SUBCUT (20:30)
[2023-05-31] MEDS: cloZAPine 100 MG TABLET 400 MG PO (20:30)
[2023-05-31] MEDS: hydrOXYzine HCL 25 MG TABLET PO (23:28)
[2023-05-31 23:32] LABS: Glucose, Whole Blood 135 mg/dL (60-115)
[2023-06-01] MEDS: Omeprazole 20 MG CAPSULE.DR PO (06:07)
[2023-06-01 06:34] LABS: Glucose, Whole Blood 141 mg/dL (60-115)
[2023-06-01 08:48] VITALS: BP 127/68; PULSE 72; RESP 16; TEMP 36.9; O2SAT 97
[2023-06-01] MEDS: Famotidine 20 MG TABLET PO (09:39)
[2023-06-01] MEDS: Cholecalciferol (Vitamin D3) 25 MCG TABLET PO (09:39)
[2023-06-01] MEDS: ARIPiprazole 20 MG TABLET PO (09:39)
[2023-06-01] MEDS: Empagliflozin 10 MG TABLET PO (09:39)
[2023-06-01] MEDS: methIMAzole 10 MG TABLET PO (09:39)
[2023-06-01] MEDS: cloZAPine 100 MG TABLET PO (09:39)
[2023-06-01] MEDS: Folic Acid 1 MG TABLET PO (09:39)
[2023-06-01] MEDS: metFORMIN HCl ER 500 MG TAB.ER.24H PO (09:39)
[2023-06-01] MEDS: lisinopriL 10 MG TABLET PO (09:39)
[2023-06-01] MEDS: Metoprolol Tartrate 50 MG TABLET PO ×2 (09:39→19:57)
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
[2023-06-01 19:40] LABS: Glucose, Whole Blood 126 mg/dL (60-115)
[2023-06-01 19:57] VITALS: BP 156/84; PULSE 78
[2023-06-01] MEDS: metFORMIN HCl 1,000 MG TABLET 1000 MG PO (19:57)
[2023-06-01] MEDS: Insulin Glargine,Hum.rec.anlog 100 UNIT/ML 10 ML VIAL 15 UNIT SUBCUT (19:58)
[2023-06-01] MEDS: Atorvastatin Calcium 40 MG TABLET PO (19:58)
[2023-06-01] MEDS: cloZAPine 100 MG TABLET 400 MG PO (19:58)
[2023-06-01 20:27] VITALS: BP 156/84; PULSE 78; RESP 16; TEMP 36.1; O2SAT 96
[2023-06-02] MEDS: Omeprazole 20 MG CAPSULE.DR PO (05:32)
[2023-06-02 05:48] LABS: Glucose, Whole Blood 118 mg/dL (60-115)
[2023-06-02 08:30] VITALS: BP 123/70; PULSE 86; RESP 20; TEMP 36.1; O2SAT 99
[2023-06-02] MEDS: Cholecalciferol (Vitamin D3) 25 MCG TABLET PO (08:41)
[2023-06-02] MEDS: lisinopriL 10 MG TABLET PO (08:41)
[2023-06-02] MEDS: Famotidine 20 MG TABLET PO (08:41)
[2023-06-02] MEDS: Folic Acid 1 MG TABLET PO (08:41)
[2023-06-02] MEDS: Empagliflozin 10 MG TABLET PO (08:42)
[2023-06-02] MEDS: methIMAzole 10 MG TABLET PO (08:42)
[2023-06-02] MEDS: Metoprolol Tartrate 50 MG TABLET PO ×2 (08:42→20:25)
[2023-06-02] MEDS: metFORMIN HCl ER 500 MG TAB.ER.24H PO (08:42)
[2023-06-02] MEDS: ARIPiprazole 20 MG TABLET PO (08:42)
[2023-06-02] MEDS: cloZAPine 100 MG TABLET PO (08:42)
[2023-06-02] MEDS: clonazePAM 0.5 MG TABLET PO (12:34)
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
[2023-06-02 20:00] VITALS: BP 117/67; PULSE 64; RESP 17; TEMP 36.2; O2SAT 98
[2023-06-02 20:04] LABS: Glucose, Whole Blood 144 mg/dL (60-115)
[2023-06-02] MEDS: Atorvastatin Calcium 40 MG TABLET PO (20:23)
[2023-06-02] MEDS: cloZAPine 100 MG TABLET 400 MG PO (20:23)
[2023-06-02] MEDS: metFORMIN HCl 1,000 MG TABLET 1000 MG PO (20:23)
[2023-06-02] MEDS: Insulin Glargine,Hum.rec.anlog 100 UNIT/ML 10 ML VIAL 15 UNIT SUBCUT (20:24)
[2023-06-02 20:25] VITALS: BP 117/67; PULSE 64
[2023-06-03] MEDS: Omeprazole 20 MG CAPSULE.DR PO (05:53)
[2023-06-03 06:11] LABS: Glucose, Whole Blood 150 mg/dL (60-115)
[2023-06-03 08:00] VITALS: BP 119/71; PULSE 77; RESP 18; TEMP 36.1; O2SAT 100
[2023-06-03 08:57] VITALS: BP 119/71; PULSE 77
[2023-06-03] MEDS: Metoprolol Tartrate 50 MG TABLET PO ×2 (08:57→20:23)
[2023-06-03 08:58] VITALS: BP 119/71
[2023-06-03] MEDS: Folic Acid 1 MG TABLET PO (08:58)
[2023-06-03] MEDS: metFORMIN HCl ER 500 MG TAB.ER.24H PO (08:58)
[2023-06-03] MEDS: ARIPiprazole 20 MG TABLET PO (08:58)
[2023-06-03] MEDS: lisinopriL 10 MG TABLET PO (08:58)
[2023-06-03] MEDS: Cholecalciferol (Vitamin D3) 25 MCG TABLET PO (08:59)
[2023-06-03] MEDS: Empagliflozin 10 MG TABLET PO (08:59)
[2023-06-03] MEDS: methIMAzole 10 MG TABLET PO (08:59)
[2023-06-03] MEDS: cloZAPine 100 MG TABLET PO (08:59)
[2023-06-03] MEDS: Famotidine 20 MG TABLET PO (08:59)
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
[2023-06-03] MEDS: clonazePAM 0.5 MG TABLET PO (13:12)
[2023-06-03 20:00] VITALS: BP 112/58; PULSE 75; RESP 18; TEMP 36.2; O2SAT 97
[2023-06-03 20:07] LABS: Glucose, Whole Blood 161 mg/dL (60-115)
[2023-06-03] MEDS: cloZAPine 100 MG TABLET 400 MG PO (20:22)
[2023-06-03] MEDS: Atorvastatin Calcium 40 MG TABLET PO (20:22)
[2023-06-03] MEDS: metFORMIN HCl 1,000 MG TABLET 1000 MG PO (20:22)
[2023-06-03] MEDS: Insulin Glargine,Hum.rec.anlog 100 UNIT/ML 10 ML VIAL 15 UNIT SUBCUT (20:44)
[2023-06-04] MEDS: Omeprazole 20 MG CAPSULE.DR PO (06:19)
[2023-06-04 06:46] LABS: Glucose, Whole Blood 131 mg/dL (60-115)
[2023-06-04 08:00] VITALS: BP 127/70; PULSE 76; RESP 18; TEMP 36; O2SAT 99
[2023-06-04 08:02] LABS: Creatinine Clr Calc Pharmacy 68.4; Estimated Glomerular Filt Rate > 60
[2023-06-04] MEDS: Empagliflozin 10 MG TABLET PO (08:40)
[2023-06-04] MEDS: ARIPiprazole 20 MG TABLET PO (08:40)
[2023-06-04] MEDS: lisinopriL 10 MG TABLET PO (08:40)
[2023-06-04] MEDS: Folic Acid 1 MG TABLET PO (08:40)
[2023-06-04] MEDS: Metoprolol Tartrate 50 MG TABLET PO ×2 (08:40→20:23)
[2023-06-04] MEDS: metFORMIN HCl ER 500 MG TAB.ER.24H PO (08:40)
[2023-06-04] MEDS: methIMAzole 10 MG TABLET PO (08:41)
[2023-06-04] MEDS: Cholecalciferol (Vitamin D3) 25 MCG TABLET PO (08:41)
[2023-06-04] MEDS: Famotidine 20 MG TABLET PO (08:41)
[2023-06-04] MEDS: cloZAPine 100 MG TABLET PO (08:41)
[2023-06-04 12:14] VITALS: BMI 29.6
[2023-06-04] MEDS: Acetaminophen 325 MG TABLET 650 MG PO (13:39)
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
--- NOTE | 2023-06-04 14:24 | PC.NURSE ---
Patient requested Tylenol for her headache of 6/10, given at 1339 with good effect.
[2023-06-04] MEDS: clonazePAM 0.5 MG TABLET PO (17:16)
--- NOTE | 2023-06-04 17:17 | PC.NURSE ---
Patient complaining of moderate anxiety after supper, requested Klonopin. Klonopin 0.5mg given PO at 1715, effect pending.
[2023-06-04 20:01] LABS: Glucose, Whole Blood 96 mg/dL (60-115)
[2023-06-04 20:21] VITALS: BP 133/67; PULSE 64; RESP 16; TEMP 36; O2SAT 98
[2023-06-04] MEDS: Insulin Glargine,Hum.rec.anlog 100 UNIT/ML 10 ML VIAL 15 UNIT SUBCUT (20:22)
[2023-06-04 20:23] VITALS: BP 133/67; PULSE 64
[2023-06-04] MEDS: Atorvastatin Calcium 40 MG TABLET PO (20:23)
[2023-06-04] MEDS: cloZAPine 100 MG TABLET 400 MG PO (20:23)
[2023-06-04] MEDS: traZODone HCL 50 MG TABLET PO (20:23)
[2023-06-04] MEDS: metFORMIN HCl 1,000 MG TABLET 1000 MG PO (20:23)
[2023-06-05] MEDS: Omeprazole 20 MG CAPSULE.DR PO (06:20)
[2023-06-05 06:44] LABS: Glucose, Whole Blood 154 mg/dL (60-115)
[2023-06-05 08:00] VITALS: BP 131/64; PULSE 84; RESP 18; TEMP 36.2; O2SAT 95
[2023-06-05 08:07] VITALS: BP 131/64
[2023-06-05] MEDS: Cholecalciferol (Vitamin D3) 25 MCG TABLET PO (08:07)
[2023-06-05] MEDS: methIMAzole 10 MG TABLET PO (08:07)
[2023-06-05] MEDS: cloZAPine 100 MG TABLET PO (08:07)
[2023-06-05] MEDS: lisinopriL 10 MG TABLET PO (08:07)
[2023-06-05] MEDS: Famotidine 20 MG TABLET PO (08:07)
[2023-06-05 08:08] VITALS: BP 131/64; PULSE 84
[2023-06-05] MEDS: Metoprolol Tartrate 50 MG TABLET PO ×2 (08:08→20:19)
[2023-06-05] MEDS: Folic Acid 1 MG TABLET PO (08:08)
[2023-06-05] MEDS: Empagliflozin 10 MG TABLET PO (08:08)
[2023-06-05] MEDS: ARIPiprazole 20 MG TABLET PO (08:08)
[2023-06-05] MEDS: metFORMIN HCl ER 500 MG TAB.ER.24H PO (08:08)
[2023-06-05] MEDS: clonazePAM 0.5 MG TABLET PO (10:46)
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
[2023-06-05 19:49] VITALS: BP 152/82; PULSE 67; RESP 17; TEMP 35.9; O2SAT 100
[2023-06-05 19:49] LABS: Glucose, Whole Blood 120 mg/dL (60-115)
[2023-06-05 20:19] VITALS: BP 152/82; PULSE 67
[2023-06-05] MEDS: Atorvastatin Calcium 40 MG TABLET PO (20:19)
[2023-06-05] MEDS: metFORMIN HCl 1,000 MG TABLET 1000 MG PO (20:19)
[2023-06-05] MEDS: traZODone HCL 50 MG TABLET PO (20:20)
[2023-06-05] MEDS: cloZAPine 100 MG TABLET 400 MG PO (20:20)
[2023-06-05] MEDS: Insulin Glargine,Hum.rec.anlog 100 UNIT/ML 10 ML VIAL 15 UNIT SUBCUT (20:21)
[2023-06-06 06:03] LABS: Glucose, Whole Blood 128 mg/dL (60-115)
[2023-06-06] MEDS: Omeprazole 20 MG CAPSULE.DR PO (06:06)
[2023-06-06 08:00] VITALS: BP 170/81; PULSE 72; RESP 18; TEMP 36.1; O2SAT 98
[2023-06-06 08:07] VITALS: BP 170/81; PULSE 72
[2023-06-06] MEDS: Famotidine 20 MG TABLET PO (08:07)
[2023-06-06] MEDS: Cholecalciferol (Vitamin D3) 25 MCG TABLET PO (08:07)
[2023-06-06] MEDS: ARIPiprazole 20 MG TABLET PO (08:07)
[2023-06-06] MEDS: metFORMIN HCl ER 500 MG TAB.ER.24H PO (08:07)
[2023-06-06] MEDS: cloZAPine 100 MG TABLET PO (08:07)
[2023-06-06] MEDS: methIMAzole 10 MG TABLET PO (08:07)
[2023-06-06] MEDS: Metoprolol Tartrate 50 MG TABLET PO ×2 (08:07→20:02)
[2023-06-06 08:08] VITALS: BP 170/81
[2023-06-06] MEDS: Folic Acid 1 MG TABLET PO (08:08)
[2023-06-06] MEDS: lisinopriL 10 MG TABLET PO (08:08)
[2023-06-06] MEDS: Empagliflozin 10 MG TABLET PO (08:08)
[2023-06-06] MEDS: clonazePAM 0.5 MG TABLET PO (10:24)
[2023-06-06] MEDS: hydrOXYzine HCL 25 MG TABLET PO (17:07)
[2023-06-06 19:49] LABS: Glucose, Whole Blood 140 mg/dL (60-115)
[2023-06-06] MEDS: metFORMIN HCl 1,000 MG TABLET 1000 MG PO (20:01)
[2023-06-06] MEDS: Atorvastatin Calcium 40 MG TABLET PO (20:01)
[2023-06-06 20:02] VITALS: BP 109/59; PULSE 71
[2023-06-06] MEDS: cloZAPine 100 MG TABLET 400 MG PO (20:02)
[2023-06-06] MEDS: Insulin Glargine,Hum.rec.anlog 100 UNIT/ML 10 ML VIAL 15 UNIT SUBCUT (20:03)
[2023-06-06 20:06] VITALS: BP 109/59; PULSE 71; RESP 16; TEMP 36.5; O2SAT 98
[2023-06-07] MEDS: Omeprazole 20 MG CAPSULE.DR PO (06:00)
[2023-06-07 06:08] LABS: Glucose, Whole Blood 156 mg/dL (60-115)
[2023-06-07 08:13] LABS: Neut%MD 60.6 %; Neutrophils Absolute Auto 5.2 x10*3/uL (2.0-8.3); WBCANC 8.6 X10*3/uL
[2023-06-07 08:15] VITALS: BP 141/73; PULSE 69; RESP 16; TEMP 36; O2SAT 97
[2023-06-07] MEDS: Famotidine 20 MG TABLET PO (08:17)
[2023-06-07] MEDS: Folic Acid 1 MG TABLET PO (08:17)
[2023-06-07] MEDS: methIMAzole 10 MG TABLET PO (08:17)
[2023-06-07] MEDS: metFORMIN HCl ER 500 MG TAB.ER.24H PO (08:17)
[2023-06-07] MEDS: Cholecalciferol (Vitamin D3) 25 MCG TABLET PO (08:17)
[2023-06-07 08:18] VITALS: BP 141/73
[2023-06-07] MEDS: cloZAPine 100 MG TABLET PO (08:18)
[2023-06-07] MEDS: lisinopriL 10 MG TABLET PO (08:18)
[2023-06-07] MEDS: Empagliflozin 10 MG TABLET PO (08:18)
[2023-06-07 08:19] VITALS: BP 141/73; PULSE 69
[2023-06-07] MEDS: ARIPiprazole 20 MG TABLET PO (08:19)
[2023-06-07] MEDS: Metoprolol Tartrate 50 MG TABLET PO ×2 (08:19→20:40)
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
[2023-06-07 20:21] VITALS: BP 177/86; PULSE 79; RESP 17; TEMP 36.3; O2SAT 98
[2023-06-07 20:30] LABS: Glucose, Whole Blood 152 mg/dL (60-115)
[2023-06-07 20:40] VITALS: BP 177/86; PULSE 79
[2023-06-07] MEDS: metFORMIN HCl 1,000 MG TABLET 1000 MG PO (20:40)
[2023-06-07] MEDS: Atorvastatin Calcium 40 MG TABLET PO (20:41)
[2023-06-07] MEDS: Insulin Glargine,Hum.rec.anlog 100 UNIT/ML 10 ML VIAL 15 UNIT SUBCUT (20:41)
[2023-06-07] MEDS: cloZAPine 100 MG TABLET 400 MG PO (20:41)
[2023-06-08] MEDS: Omeprazole 20 MG CAPSULE.DR PO (05:42)
[2023-06-08 05:53] LABS: Glucose, Whole Blood 130 mg/dL (60-115)
[2023-06-08 08:00] VITALS: BP 121/67; PULSE 53; RESP 18; TEMP 36.2; O2SAT 93
[2023-06-08 08:21] VITALS: BP 152/87; PULSE 80
[2023-06-08] MEDS: Empagliflozin 10 MG TABLET PO (08:21)
[2023-06-08] MEDS: Cholecalciferol (Vitamin D3) 25 MCG TABLET PO (08:21)
[2023-06-08] MEDS: Metoprolol Tartrate 50 MG TABLET PO ×2 (08:21→20:00)
[2023-06-08] MEDS: ARIPiprazole 20 MG TABLET PO (08:21)
[2023-06-08] MEDS: methIMAzole 10 MG TABLET PO (08:21)
[2023-06-08] MEDS: Famotidine 20 MG TABLET PO (08:21)
[2023-06-08] MEDS: metFORMIN HCl ER 500 MG TAB.ER.24H PO (08:21)
[2023-06-08] MEDS: cloZAPine 100 MG TABLET PO (08:21)
[2023-06-08 08:22] VITALS: BP 152/87
[2023-06-08] MEDS: lisinopriL 10 MG TABLET PO (08:22)
[2023-06-08] MEDS: Folic Acid 1 MG TABLET PO (08:22)
[2023-06-08] MEDS: clonazePAM 0.5 MG TABLET PO (12:12)
[2023-06-08 19:52] LABS: Glucose, Whole Blood 130 mg/dL (60-115)
[2023-06-08 20:00] VITALS: BP 131/60; PULSE 75
[2023-06-08] MEDS: Atorvastatin Calcium 40 MG TABLET PO (20:00)
[2023-06-08] MEDS: cloZAPine 100 MG TABLET 400 MG PO (20:00)
[2023-06-08] MEDS: metFORMIN HCl 1,000 MG TABLET 1000 MG PO (20:01)
[2023-06-08] MEDS: traZODone HCL 50 MG TABLET PO (20:01)
[2023-06-08] MEDS: Insulin Glargine,Hum.rec.anlog 100 UNIT/ML 10 ML VIAL 15 UNIT SUBCUT (20:01)
[2023-06-08 21:48] VITALS: BP 131/60; PULSE 75; RESP 16; TEMP 36; O2SAT 75
[2023-06-09] MEDS: Omeprazole 20 MG CAPSULE.DR PO (05:33)
[2023-06-09 06:00] LABS: Glucose, Whole Blood 173 mg/dL (60-115)
[2023-06-09 07:55] VITALS: BP 129/69; PULSE 70; RESP 18; TEMP 36.6; O2SAT 99
[2023-06-09 08:01] VITALS: BP 129/69
[2023-06-09] MEDS: methIMAzole 10 MG TABLET PO (08:01)
[2023-06-09] MEDS: lisinopriL 10 MG TABLET PO (08:01)
[2023-06-09 08:02] VITALS: BP 129/69
[2023-06-09] MEDS: cloZAPine 100 MG TABLET PO (08:02)
[2023-06-09] MEDS: metFORMIN HCl ER 500 MG TAB.ER.24H PO (08:02)
[2023-06-09] MEDS: ARIPiprazole 20 MG TABLET PO (08:02)
[2023-06-09] MEDS: Folic Acid 1 MG TABLET PO (08:02)
[2023-06-09] MEDS: Empagliflozin 10 MG TABLET PO (08:02)
[2023-06-09] MEDS: Cholecalciferol (Vitamin D3) 25 MCG TABLET PO (08:02)
[2023-06-09] MEDS: Famotidine 20 MG TABLET PO (08:02)
[2023-06-09] MEDS: Metoprolol Tartrate 50 MG TABLET PO ×2 (08:02→20:24)
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
[2023-06-09] MEDS: clonazePAM 0.5 MG TABLET PO (11:25)
[2023-06-09] MEDS: Ammonium Lactate 12 % Lotion 226 GM BOTTLE 1 APPL TOPICAL ×2 (13:14→20:22)
--- NOTE | 2023-06-09 16:23 | PC.NURSE ---
Pt with bilateral dry hands, knuckles cracking. provider aware moisturizing creme ordered.
[2023-06-09 20:00] VITALS: BP 124/66; PULSE 76; RESP 18; TEMP 36.1; O2SAT 98
[2023-06-09 20:15] LABS: Glucose, Whole Blood 133 mg/dL (60-115)
[2023-06-09] MEDS: cloZAPine 100 MG TABLET 400 MG PO (20:23)
[2023-06-09] MEDS: metFORMIN HCl 1,000 MG TABLET 1000 MG PO (20:23)
[2023-06-09 20:24] VITALS: BP 124/66; PULSE 76
[2023-06-09] MEDS: hydrOXYzine HCL 25 MG TABLET PO (20:24)
[2023-06-09] MEDS: Atorvastatin Calcium 40 MG TABLET PO (20:24)
[2023-06-09] MEDS: traZODone HCL 50 MG TABLET PO (20:25)
[2023-06-09] MEDS: Insulin Glargine,Hum.rec.anlog 100 UNIT/ML 10 ML VIAL 15 UNIT SUBCUT (20:25)
[2023-06-10] MEDS: Omeprazole 20 MG CAPSULE.DR PO (06:14)
[2023-06-10 06:29] LABS: Glucose, Whole Blood 128 mg/dL (60-115)
[2023-06-10 07:00] VITALS: BMI 29.7
[2023-06-10 08:00] VITALS: BP 115/58; PULSE 78; RESP 18; TEMP 36.1; O2SAT 99
[2023-06-10 08:36] VITALS: BP 115/58
[2023-06-10] MEDS: methIMAzole 10 MG TABLET PO (08:36)
[2023-06-10] MEDS: ARIPiprazole 20 MG TABLET PO (08:36)
[2023-06-10] MEDS: Ammonium Lactate 12 % Lotion 226 GM BOTTLE 1 APPL TOPICAL ×2 (08:36→20:47)
[2023-06-10] MEDS: lisinopriL 10 MG TABLET PO (08:36)
[2023-06-10] MEDS: Cholecalciferol (Vitamin D3) 25 MCG TABLET PO (08:36)
[2023-06-10 08:37] VITALS: BP 115/58; PULSE 78
[2023-06-10] MEDS: metFORMIN HCl ER 500 MG TAB.ER.24H PO (08:37)
[2023-06-10] MEDS: Metoprolol Tartrate 50 MG TABLET PO ×2 (08:37→20:41)
[2023-06-10] MEDS: Famotidine 20 MG TABLET PO (08:37)
[2023-06-10] MEDS: Empagliflozin 10 MG TABLET PO (08:37)
[2023-06-10] MEDS: Folic Acid 1 MG TABLET PO (08:37)
[2023-06-10] MEDS: cloZAPine 100 MG TABLET PO (08:38)
[2023-06-10] MEDS: clonazePAM 0.5 MG TABLET PO (13:05)
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
[2023-06-10 20:00] VITALS: BP 145/66; PULSE 66; RESP 16; TEMP 35.8; O2SAT 96
[2023-06-10 20:14] LABS: Glucose, Whole Blood 114 mg/dL (60-115)
[2023-06-10 20:30] VITALS: BP 145/69; PULSE 66; TEMP 35.6; O2SAT 96
[2023-06-10] MEDS: cloZAPine 100 MG TABLET 400 MG PO (20:40)
[2023-06-10] MEDS: Insulin Glargine,Hum.rec.anlog 100 UNIT/ML 10 ML VIAL 15 UNIT SUBCUT (20:40)
[2023-06-10 20:41] VITALS: BP 145/64; PULSE 66
[2023-06-10] MEDS: metFORMIN HCl 1,000 MG TABLET 1000 MG PO (20:42)
[2023-06-10] MEDS: Atorvastatin Calcium 40 MG TABLET PO (20:42)
[2023-06-11] MEDS: Omeprazole 20 MG CAPSULE.DR PO (06:02)
[2023-06-11 06:39] LABS: Glucose, Whole Blood 157 mg/dL (60-115)
[2023-06-11 08:11] VITALS: BP 139/67; PULSE 82; RESP 18; TEMP 36.1; O2SAT 98
[2023-06-11] MEDS: Folic Acid 1 MG TABLET PO (08:19)
[2023-06-11] MEDS: metFORMIN HCl ER 500 MG TAB.ER.24H PO (08:19)
[2023-06-11] MEDS: cloZAPine 100 MG TABLET PO (08:19)
[2023-06-11 08:20] VITALS: BP 139/67; PULSE 82
[2023-06-11] MEDS: Cholecalciferol (Vitamin D3) 25 MCG TABLET PO (08:20)
[2023-06-11] MEDS: methIMAzole 10 MG TABLET PO (08:20)
[2023-06-11] MEDS: clonazePAM 0.5 MG TABLET PO (08:20)
[2023-06-11] MEDS: Ammonium Lactate 12 % Lotion 226 GM BOTTLE 1 APPL TOPICAL ×2 (08:20→21:19)
[2023-06-11] MEDS: lisinopriL 10 MG TABLET PO (08:20)
[2023-06-11] MEDS: Metoprolol Tartrate 50 MG TABLET PO ×2 (08:20→20:51)
[2023-06-11] MEDS: Empagliflozin 10 MG TABLET PO (08:20)
[2023-06-11] MEDS: Famotidine 20 MG TABLET PO (08:20)
[2023-06-11] MEDS: ARIPiprazole 20 MG TABLET PO (08:20)
[2023-06-11 08:24] LABS: Creatinine Clr Calc Pharmacy 61.3; Estimated Glomerular Filt Rate > 60
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
[2023-06-11 20:00] VITALS: BP 146/64; PULSE 66; RESP 18; TEMP 36.2; O2SAT 66
[2023-06-11] MEDS: cloZAPine 100 MG TABLET 400 MG PO (20:52)
[2023-06-11] MEDS: Atorvastatin Calcium 40 MG TABLET PO (20:52)
[2023-06-11] MEDS: metFORMIN HCl 1,000 MG TABLET 1000 MG PO (20:52)
[2023-06-11 21:10] LABS: Glucose, Whole Blood 170 mg/dL (60-115)
[2023-06-11] MEDS: Insulin Glargine,Hum.rec.anlog 100 UNIT/ML 10 ML VIAL 15 UNIT SUBCUT (21:17)
[2023-06-12] MEDS: Omeprazole 20 MG CAPSULE.DR PO (06:16)
[2023-06-12 06:41] LABS: Glucose, Whole Blood 148 mg/dL (60-115)
[2023-06-12 08:30] VITALS: BP 120/76; PULSE 94; RESP 20; TEMP 36.6; O2SAT 99
[2023-06-12] MEDS: lisinopriL 10 MG TABLET PO (08:36)
[2023-06-12] MEDS: Famotidine 20 MG TABLET PO (08:36)
[2023-06-12] MEDS: Cholecalciferol (Vitamin D3) 25 MCG TABLET PO (08:36)
[2023-06-12] MEDS: ARIPiprazole 20 MG TABLET PO (08:36)
[2023-06-12] MEDS: cloZAPine 100 MG TABLET PO (08:36)
[2023-06-12] MEDS: Metoprolol Tartrate 50 MG TABLET PO ×2 (08:36→20:19)
[2023-06-12] MEDS: Empagliflozin 10 MG TABLET PO (08:36)
[2023-06-12] MEDS: metFORMIN HCl ER 500 MG TAB.ER.24H PO (08:36)
[2023-06-12] MEDS: methIMAzole 10 MG TABLET PO (08:36)
[2023-06-12] MEDS: Folic Acid 1 MG TABLET PO (08:37)
[2023-06-12] MEDS: clonazePAM 0.5 MG TABLET PO (11:51)
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
[2023-06-12 19:57] LABS: Glucose, Whole Blood 152 mg/dL (60-115)
[2023-06-12 20:00] VITALS: BP 104/59; PULSE 71; RESP 18; TEMP 36.1; O2SAT 96
[2023-06-12] MEDS: cloZAPine 100 MG TABLET 400 MG PO (20:18)
[2023-06-12] MEDS: Atorvastatin Calcium 40 MG TABLET PO (20:18)
[2023-06-12] MEDS: metFORMIN HCl 1,000 MG TABLET 1000 MG PO (20:18)
[2023-06-12] MEDS: Insulin Glargine,Hum.rec.anlog 100 UNIT/ML 10 ML VIAL 15 UNIT SUBCUT (20:21)
[2023-06-12] MEDS: Ammonium Lactate 12 % Lotion 226 GM BOTTLE 1 APPL TOPICAL (20:24)
[2023-06-13] MEDS: Omeprazole 20 MG CAPSULE.DR PO (06:29)
[2023-06-13 06:43] LABS: Glucose, Whole Blood 161 mg/dL (60-115)
[2023-06-13 07:55] VITALS: BP 151/67; PULSE 81; RESP 18; TEMP 36.8; O2SAT 99
[2023-06-13] MEDS: Ammonium Lactate 12 % Lotion 226 GM BOTTLE 1 APPL TOPICAL ×2 (08:05→20:33)
[2023-06-13 08:06] VITALS: BP 151/67
[2023-06-13] MEDS: Folic Acid 1 MG TABLET PO (08:06)
[2023-06-13] MEDS: methIMAzole 10 MG TABLET PO (08:06)
[2023-06-13] MEDS: lisinopriL 10 MG TABLET PO (08:06)
[2023-06-13] MEDS: cloZAPine 100 MG TABLET PO (08:06)
[2023-06-13] MEDS: ARIPiprazole 20 MG TABLET PO (08:06)
[2023-06-13] MEDS: Famotidine 20 MG TABLET PO (08:07)
[2023-06-13] MEDS: Metoprolol Tartrate 50 MG TABLET PO ×2 (08:07→20:29)
[2023-06-13] MEDS: metFORMIN HCl ER 500 MG TAB.ER.24H PO (08:07)
[2023-06-13] MEDS: Empagliflozin 10 MG TABLET PO (08:07)
[2023-06-13] MEDS: Cholecalciferol (Vitamin D3) 25 MCG TABLET PO (08:07)
[2023-06-13] MEDS: clonazePAM 0.5 MG TABLET PO ×2 (14:49→20:28)
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
[2023-06-13 19:57] LABS: Glucose, Whole Blood 96 mg/dL (60-115)
[2023-06-13] MEDS: cloZAPine 100 MG TABLET 400 MG PO (20:28)
[2023-06-13] MEDS: metFORMIN HCl 1,000 MG TABLET 1000 MG PO (20:28)
[2023-06-13] MEDS: Atorvastatin Calcium 40 MG TABLET PO (20:28)
[2023-06-13] MEDS: traZODone HCL 50 MG TABLET PO (20:28)
[2023-06-13 20:29] VITALS: BP 141/71; PULSE 72
[2023-06-13] MEDS: Insulin Glargine,Hum.rec.anlog 100 UNIT/ML 10 ML VIAL 15 UNIT SUBCUT (20:29)
[2023-06-14 01:06] VITALS: BP 141/71; PULSE 71; RESP 18; TEMP 36; O2SAT 98
[2023-06-14] MEDS: Omeprazole 20 MG CAPSULE.DR PO (05:31)
[2023-06-14 05:42] LABS: Glucose, Whole Blood 118 mg/dL (60-115)
[2023-06-14 08:05] VITALS: BP 127/65; PULSE 76; RESP 18; TEMP 36.4; O2SAT 100
[2023-06-14 08:07] LABS: Neut%MD 66.1 %; Neutrophils Absolute Auto 4.7 x10*3/uL (2.0-8.3); WBCANC 7.1 X10*3/uL
[2023-06-14 08:53] VITALS: BP 127/55; PULSE 76
[2023-06-14] MEDS: ARIPiprazole 20 MG TABLET PO (08:53)
[2023-06-14] MEDS: Metoprolol Tartrate 50 MG TABLET PO ×2 (08:53→20:48)
[2023-06-14] MEDS: metFORMIN HCl ER 500 MG TAB.ER.24H PO (08:53)
[2023-06-14] MEDS: clonazePAM 0.5 MG TABLET PO ×3 (08:53→20:47)
[2023-06-14] MEDS: Folic Acid 1 MG TABLET PO (08:53)
[2023-06-14] MEDS: Empagliflozin 10 MG TABLET PO (08:53)
[2023-06-14 08:54] VITALS: BP 127/55
[2023-06-14] MEDS: Cholecalciferol (Vitamin D3) 25 MCG TABLET PO (08:54)
[2023-06-14] MEDS: Famotidine 20 MG TABLET PO (08:54)
[2023-06-14] MEDS: methIMAzole 10 MG TABLET PO (08:54)
[2023-06-14] MEDS: lisinopriL 10 MG TABLET PO (08:54)
[2023-06-14] MEDS: cloZAPine 100 MG TABLET PO (08:54)
[2023-06-14] MEDS: Ammonium Lactate 12 % Lotion 226 GM BOTTLE 1 APPL TOPICAL ×2 (08:57→20:46)
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
[2023-06-14] MEDS: hydrOXYzine HCL 25 MG TABLET PO (17:26)
[2023-06-14 19:49] LABS: Glucose, Whole Blood 105 mg/dL (60-115)
[2023-06-14 20:00] VITALS: BP 142/74; PULSE 60; RESP 16; TEMP 35.9; O2SAT 93
[2023-06-14] MEDS: cloZAPine 100 MG TABLET 400 MG PO (20:46)
[2023-06-14] MEDS: Atorvastatin Calcium 40 MG TABLET PO (20:47)
[2023-06-14] MEDS: traZODone HCL 50 MG TABLET PO (20:47)
[2023-06-14 20:48] VITALS: BP 146/67; PULSE 68
[2023-06-14] MEDS: Insulin Glargine,Hum.rec.anlog 100 UNIT/ML 10 ML VIAL 15 UNIT SUBCUT (20:49)
[2023-06-14] MEDS: metFORMIN HCl 1,000 MG TABLET 1000 MG PO (21:02)
[2023-06-15 06:31] LABS: Glucose, Whole Blood 135 mg/dL (60-115)
[2023-06-15] MEDS: Omeprazole 20 MG CAPSULE.DR PO (06:40)
[2023-06-15 07:45] VITALS: BP 131/63; PULSE 80; RESP 18; TEMP 36.1; O2SAT 97
[2023-06-15] MEDS: Ammonium Lactate 12 % Lotion 226 GM BOTTLE 1 APPL TOPICAL ×2 (08:07→20:51)
[2023-06-15 08:08] VITALS: BP 131/63
[2023-06-15] MEDS: lisinopriL 10 MG TABLET PO (08:08)
[2023-06-15] MEDS: Folic Acid 1 MG TABLET PO (08:08)
[2023-06-15] MEDS: metFORMIN HCl ER 500 MG TAB.ER.24H PO (08:08)
[2023-06-15] MEDS: cloZAPine 100 MG TABLET PO (08:08)
[2023-06-15] MEDS: methIMAzole 10 MG TABLET PO (08:08)
[2023-06-15] MEDS: Cholecalciferol (Vitamin D3) 25 MCG TABLET PO (08:08)
[2023-06-15 08:09] VITALS: BP 131/63; PULSE 80
[2023-06-15] MEDS: Famotidine 20 MG TABLET PO (08:09)
[2023-06-15] MEDS: Empagliflozin 10 MG TABLET PO (08:09)
[2023-06-15] MEDS: ARIPiprazole 20 MG TABLET PO (08:09)
[2023-06-15] MEDS: Metoprolol Tartrate 50 MG TABLET PO (08:09)
[2023-06-15] MEDS: clonazePAM 0.5 MG TABLET PO ×3 (08:09→20:50)
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
[2023-06-15 20:00] VITALS: BP 90/59; PULSE 68; RESP 18; TEMP 36.3; O2SAT 95
[2023-06-15 20:00] LABS: Glucose, Whole Blood 159 mg/dL (60-115)
[2023-06-15] MEDS: Insulin Glargine,Hum.rec.anlog 100 UNIT/ML 10 ML VIAL 15 UNIT SUBCUT (20:48)
[2023-06-15] MEDS: cloZAPine 100 MG TABLET 400 MG PO (20:49)
[2023-06-15] MEDS: Atorvastatin Calcium 40 MG TABLET PO (20:50)
[2023-06-15] MEDS: traZODone HCL 50 MG TABLET PO (20:50)
[2023-06-15] MEDS: metFORMIN HCl 1,000 MG TABLET 1000 MG PO (20:50)
[2023-06-15 21:41] VITALS: BP 90/59; PULSE 68
[2023-06-16] MEDS: Omeprazole 20 MG CAPSULE.DR PO (06:15)
[2023-06-16 06:16] LABS: Glucose, Whole Blood 129 mg/dL (60-115)
[2023-06-16 07:50] VITALS: BP 133/65; PULSE 84; RESP 18; TEMP 36.6; O2SAT 98
[2023-06-16 07:57] VITALS: BP 133/65
[2023-06-16] MEDS: cloZAPine 100 MG TABLET PO (07:57)
[2023-06-16] MEDS: lisinopriL 10 MG TABLET PO (07:57)
[2023-06-16] MEDS: Famotidine 20 MG TABLET PO (07:58)
[2023-06-16] MEDS: Empagliflozin 10 MG TABLET PO (07:58)
[2023-06-16] MEDS: Metoprolol Tartrate 50 MG TABLET PO ×2 (07:58→19:40)
[2023-06-16] MEDS: ARIPiprazole 20 MG TABLET PO (07:58)
[2023-06-16] MEDS: methIMAzole 10 MG TABLET PO (07:58)
[2023-06-16] MEDS: Cholecalciferol (Vitamin D3) 25 MCG TABLET PO (07:58)
[2023-06-16] MEDS: Folic Acid 1 MG TABLET PO (07:58)
[2023-06-16] MEDS: metFORMIN HCl ER 500 MG TAB.ER.24H PO (07:59)
[2023-06-16] MEDS: clonazePAM 0.5 MG TABLET PO ×3 (07:59→19:39)
[2023-06-16] MEDS: Ammonium Lactate 12 % Lotion 226 GM BOTTLE 1 APPL TOPICAL ×2 (09:33→19:57)
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
[2023-06-16 19:32] LABS: Glucose, Whole Blood 152 mg/dL (60-115)
[2023-06-16 19:37] VITALS: BP 110/56; PULSE 67; RESP 17; TEMP 36.2; O2SAT 97
[2023-06-16 19:40] VITALS: BP 110/56; PULSE 67
[2023-06-16] MEDS: cloZAPine 100 MG TABLET 400 MG PO (19:40)
[2023-06-16] MEDS: metFORMIN HCl 1,000 MG TABLET 1000 MG PO (19:40)
[2023-06-16] MEDS: Atorvastatin Calcium 40 MG TABLET PO (19:40)
[2023-06-16] MEDS: traZODone HCL 50 MG TABLET PO (19:40)
[2023-06-16] MEDS: Insulin Glargine,Hum.rec.anlog 100 UNIT/ML 10 ML VIAL 15 UNIT SUBCUT (19:41)
[2023-06-17] MEDS: Omeprazole 20 MG CAPSULE.DR PO (05:43)
[2023-06-17 06:07] LABS: Glucose, Whole Blood 110 mg/dL (60-115)
[2023-06-17 07:00] VITALS: BMI 29.7
[2023-06-17 07:55] VITALS: BP 120/60; PULSE 82; RESP 18; TEMP 36.8; O2SAT 97
[2023-06-17 08:03] VITALS: BP 120/60
[2023-06-17] MEDS: lisinopriL 10 MG TABLET PO (08:03)
[2023-06-17] MEDS: methIMAzole 10 MG TABLET PO (08:04)
[2023-06-17] MEDS: Famotidine 20 MG TABLET PO (08:04)
[2023-06-17] MEDS: Empagliflozin 10 MG TABLET PO (08:04)
[2023-06-17] MEDS: metFORMIN HCl ER 500 MG TAB.ER.24H PO (08:04)
[2023-06-17] MEDS: clonazePAM 0.5 MG TABLET PO ×3 (08:04→19:58)
[2023-06-17] MEDS: Cholecalciferol (Vitamin D3) 25 MCG TABLET PO (08:04)
[2023-06-17] MEDS: ARIPiprazole 20 MG TABLET PO (08:04)
[2023-06-17] MEDS: Folic Acid 1 MG TABLET PO (08:04)
[2023-06-17] MEDS: Metoprolol Tartrate 50 MG TABLET PO ×2 (08:04→19:58)
[2023-06-17] MEDS: cloZAPine 100 MG TABLET PO (08:04)
[2023-06-17] MEDS: Ammonium Lactate 12 % Lotion 226 GM BOTTLE 1 APPL TOPICAL ×2 (08:09→21:19)
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
[2023-06-17 19:50] LABS: Glucose, Whole Blood 129 mg/dL (60-115)
[2023-06-17] MEDS: Insulin Glargine,Hum.rec.anlog 100 UNIT/ML 10 ML VIAL 15 UNIT SUBCUT (19:55)
[2023-06-17] MEDS: traZODone HCL 50 MG TABLET PO (19:56)
[2023-06-17] MEDS: cloZAPine 100 MG TABLET 400 MG PO (19:56)
[2023-06-17 19:58] VITALS: BP 110/60; PULSE 70
[2023-06-17] MEDS: Atorvastatin Calcium 40 MG TABLET PO (19:59)
[2023-06-17] MEDS: metFORMIN HCl 1,000 MG TABLET 1000 MG PO (19:59)
[2023-06-17] MEDS: Acetaminophen 325 MG TABLET 650 MG PO (21:03)
[2023-06-18] MEDS: Omeprazole 20 MG CAPSULE.DR PO (05:38)
[2023-06-18 05:45] LABS: Glucose, Whole Blood 129 mg/dL (60-115)
[2023-06-18 07:45] VITALS: BP 120/59; PULSE 74; RESP 18; TEMP 36.4; O2SAT 99
[2023-06-18 08:34] LABS: Estimated Glomerular Filt Rate > 60
[2023-06-18] MEDS: metFORMIN HCl ER 500 MG TAB.ER.24H PO (09:10)
[2023-06-18 09:11] VITALS: BP 120/59; PULSE 74
[2023-06-18] MEDS: ARIPiprazole 20 MG TABLET PO (09:11)
[2023-06-18] MEDS: Metoprolol Tartrate 50 MG TABLET PO ×2 (09:11→21:03)
[2023-06-18] MEDS: methIMAzole 10 MG TABLET PO (09:11)
[2023-06-18] MEDS: clonazePAM 0.5 MG TABLET PO ×3 (09:11→21:04)
[2023-06-18] MEDS: Folic Acid 1 MG TABLET PO (09:11)
[2023-06-18] MEDS: Empagliflozin 10 MG TABLET PO (09:11)
[2023-06-18] MEDS: cloZAPine 100 MG TABLET PO (09:11)
[2023-06-18 09:12] VITALS: BP 120/59
[2023-06-18] MEDS: lisinopriL 10 MG TABLET PO (09:12)
[2023-06-18] MEDS: Ammonium Lactate 12 % Lotion 226 GM BOTTLE 1 APPL TOPICAL ×2 (09:12→21:01)
[2023-06-18] MEDS: Cholecalciferol (Vitamin D3) 25 MCG TABLET PO (09:12)
[2023-06-18] MEDS: Famotidine 20 MG TABLET PO (09:12)
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
[2023-06-18 20:00] VITALS: BP 113/61; PULSE 71; RESP 16; TEMP 36.4; O2SAT 97
[2023-06-18 20:24] LABS: Glucose, Whole Blood 125 mg/dL (60-115)
[2023-06-18] MEDS: Insulin Glargine,Hum.rec.anlog 100 UNIT/ML 10 ML VIAL 15 UNIT SUBCUT (21:01)
[2023-06-18] MEDS: traZODone HCL 50 MG TABLET PO (21:02)
[2023-06-18] MEDS: cloZAPine 100 MG TABLET 400 MG PO (21:02)
[2023-06-18] MEDS: Atorvastatin Calcium 40 MG TABLET PO (21:02)
[2023-06-18 21:03] VITALS: BP 113/61; PULSE 71
[2023-06-18] MEDS: metFORMIN HCl 1,000 MG TABLET 1000 MG PO (21:04)
[2023-06-19] MEDS: Omeprazole 20 MG CAPSULE.DR PO (06:04)
[2023-06-19 08:04] VITALS: BP 139/63; PULSE 81; RESP 18; TEMP 36.1; O2SAT 100
[2023-06-19 08:32] VITALS: BP 139/63; PULSE 81
[2023-06-19] MEDS: lisinopriL 10 MG TABLET PO (08:32)
[2023-06-19] MEDS: Famotidine 20 MG TABLET PO (08:32)
[2023-06-19] MEDS: Empagliflozin 10 MG TABLET PO (08:32)
[2023-06-19] MEDS: Metoprolol Tartrate 50 MG TABLET PO ×2 (08:32→20:38)
[2023-06-19] MEDS: Folic Acid 1 MG TABLET PO (08:32)
[2023-06-19] MEDS: cloZAPine 100 MG TABLET PO (08:32)
[2023-06-19] MEDS: clonazePAM 0.5 MG TABLET PO ×3 (08:32→20:38)
[2023-06-19] MEDS: ARIPiprazole 20 MG TABLET PO (08:32)
[2023-06-19] MEDS: methIMAzole 10 MG TABLET PO (08:32)
[2023-06-19] MEDS: metFORMIN HCl ER 500 MG TAB.ER.24H PO (08:32)
[2023-06-19] MEDS: Ammonium Lactate 12 % Lotion 226 GM BOTTLE 1 APPL TOPICAL ×2 (08:33→20:43)
[2023-06-19] MEDS: Cholecalciferol (Vitamin D3) 25 MCG TABLET PO (08:33)
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
[2023-06-19 11:08] LABS: Glucose, Whole Blood 145 mg/dL (60-115)
[2023-06-19 19:48] LABS: Glucose, Whole Blood 140 mg/dL (60-115)
[2023-06-19 20:00] VITALS: BP 118/65; PULSE 67; RESP 16; TEMP 36; O2SAT 97
[2023-06-19] MEDS: traZODone HCL 50 MG TABLET PO (20:37)
[2023-06-19] MEDS: cloZAPine 100 MG TABLET 400 MG PO (20:37)
[2023-06-19] MEDS: metFORMIN HCl 1,000 MG TABLET 1000 MG PO (20:37)
[2023-06-19 20:38] VITALS: BP 118/65; PULSE 67
[2023-06-19] MEDS: Atorvastatin Calcium 40 MG TABLET PO (20:38)
[2023-06-19] MEDS: Insulin Glargine,Hum.rec.anlog 100 UNIT/ML 10 ML VIAL 15 UNIT SUBCUT (20:39)
[2023-06-20] MEDS: Omeprazole 20 MG CAPSULE.DR PO (05:47)
[2023-06-20 06:11] LABS: Glucose, Whole Blood 124 mg/dL (60-115)
[2023-06-20 07:58] VITALS: BP 132/62; PULSE 80; RESP 18; TEMP 36.4; O2SAT 98
[2023-06-20 09:26] VITALS: BP 132/62; PULSE 80
[2023-06-20] MEDS: Famotidine 20 MG TABLET PO (09:26)
[2023-06-20] MEDS: Folic Acid 1 MG TABLET PO (09:26)
[2023-06-20] MEDS: lisinopriL 10 MG TABLET PO (09:26)
[2023-06-20] MEDS: clonazePAM 0.5 MG TABLET PO ×3 (09:26→19:59)
[2023-06-20] MEDS: Cholecalciferol (Vitamin D3) 25 MCG TABLET PO (09:26)
[2023-06-20] MEDS: cloZAPine 100 MG TABLET PO (09:26)
[2023-06-20] MEDS: ARIPiprazole 20 MG TABLET PO (09:26)
[2023-06-20] MEDS: metFORMIN HCl ER 500 MG TAB.ER.24H PO (09:26)
[2023-06-20] MEDS: methIMAzole 10 MG TABLET PO (09:26)
[2023-06-20] MEDS: Metoprolol Tartrate 50 MG TABLET PO ×2 (09:26→19:57)
[2023-06-20] MEDS: Empagliflozin 10 MG TABLET PO (09:30)
[2023-06-20] MEDS: Ammonium Lactate 12 % Lotion 226 GM BOTTLE 1 APPL TOPICAL ×2 (09:34→19:58)
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
[2023-06-20 19:46] LABS: Glucose, Whole Blood 107 mg/dL (60-115)
[2023-06-20 19:54] VITALS: BP 184/80; PULSE 69; RESP 16; TEMP 36.1; O2SAT 97
[2023-06-20 19:57] VITALS: BP 184/80; PULSE 69
[2023-06-20] MEDS: Atorvastatin Calcium 40 MG TABLET PO (19:57)
[2023-06-20] MEDS: traZODone HCL 50 MG TABLET PO (19:57)
[2023-06-20] MEDS: metFORMIN HCl 1,000 MG TABLET 1000 MG PO (19:57)
[2023-06-20] MEDS: cloZAPine 100 MG TABLET 400 MG PO (19:59)
--- NOTE | 2023-06-20 20:02 | PC.NURSE ---
POC at 1941 is [id number], HS Taryn held, provider notified and okayed
[2023-06-20 22:30] VITALS: BP 135/65
[2023-06-21] MEDS: Omeprazole 20 MG CAPSULE.DR PO (05:44)
[2023-06-21 05:46] LABS: Glucose, Whole Blood 127 mg/dL (60-115)
[2023-06-21 08:05] VITALS: BP 144/72; PULSE 88; RESP 18; TEMP 36.6; O2SAT 96
[2023-06-21 08:22] VITALS: BP 144/72; PULSE 88
[2023-06-21] MEDS: Folic Acid 1 MG TABLET PO (08:22)
[2023-06-21] MEDS: metFORMIN HCl ER 500 MG TAB.ER.24H PO (08:22)
[2023-06-21] MEDS: methIMAzole 10 MG TABLET PO (08:22)
[2023-06-21] MEDS: Famotidine 20 MG TABLET PO (08:22)
[2023-06-21] MEDS: Empagliflozin 10 MG TABLET PO (08:22)
[2023-06-21] MEDS: Metoprolol Tartrate 50 MG TABLET PO ×2 (08:22→20:01)
[2023-06-21] MEDS: cloZAPine 100 MG TABLET PO (08:22)
[2023-06-21] MEDS: Cholecalciferol (Vitamin D3) 25 MCG TABLET PO (08:22)
[2023-06-21] MEDS: ARIPiprazole 20 MG TABLET PO (08:22)
[2023-06-21] MEDS: lisinopriL 10 MG TABLET PO (08:22)
[2023-06-21] MEDS: clonazePAM 0.5 MG TABLET PO ×3 (08:23→20:01)
[2023-06-21 09:03] LABS: Neut%MD 68.7 %; Neutrophils Absolute Auto 5.3 x10*3/uL (2.0-8.3); WBCANC 7.7 X10*3/uL
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
[2023-06-21 19:51] LABS: Glucose, Whole Blood 139 mg/dL (60-115)
[2023-06-21 19:57] VITALS: BP 157/77; PULSE 73; RESP 16; TEMP 35.8; O2SAT 98
[2023-06-21] MEDS: Insulin Glargine,Hum.rec.anlog 100 UNIT/ML 10 ML VIAL 15 UNIT SUBCUT (20:00)
[2023-06-21 20:01] VITALS: BP 157/77; PULSE 73
[2023-06-21] MEDS: metFORMIN HCl 1,000 MG TABLET 1000 MG PO (20:01)
[2023-06-21] MEDS: cloZAPine 100 MG TABLET 400 MG PO (20:01)
[2023-06-21] MEDS: Atorvastatin Calcium 40 MG TABLET PO (20:01)
[2023-06-21] MEDS: Ammonium Lactate 12 % Lotion 226 GM BOTTLE 1 APPL TOPICAL (20:38)
[2023-06-22 05:39] LABS: Glucose, Whole Blood 198 mg/dL (60-115)
[2023-06-22] MEDS: Omeprazole 20 MG CAPSULE.DR PO (05:49)
[2023-06-22 07:55] VITALS: BP 119/61; PULSE 87; RESP 18; TEMP 36.6; O2SAT 97
[2023-06-22 08:07] VITALS: BP 120/61; PULSE 87
[2023-06-22] MEDS: Metoprolol Tartrate 50 MG TABLET PO ×2 (08:07→20:33)
[2023-06-22] MEDS: Folic Acid 1 MG TABLET PO (08:08)
[2023-06-22] MEDS: metFORMIN HCl ER 500 MG TAB.ER.24H PO (08:08)
[2023-06-22] MEDS: cloZAPine 100 MG TABLET PO (08:08)
[2023-06-22] MEDS: ARIPiprazole 20 MG TABLET PO (08:08)
[2023-06-22] MEDS: clonazePAM 0.5 MG TABLET PO ×3 (08:08→20:33)
[2023-06-22] MEDS: methIMAzole 10 MG TABLET PO (08:08)
[2023-06-22] MEDS: lisinopriL 10 MG TABLET PO (08:08)
[2023-06-22] MEDS: Empagliflozin 10 MG TABLET PO (08:08)
[2023-06-22] MEDS: Cholecalciferol (Vitamin D3) 25 MCG TABLET PO (08:08)
[2023-06-22] MEDS: Famotidine 20 MG TABLET PO (08:08)
[2023-06-22] MEDS: Ammonium Lactate 12 % Lotion 226 GM BOTTLE 1 APPL TOPICAL ×2 (08:13→20:33)
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
[2023-06-22 19:39] LABS: Glucose, Whole Blood 107 mg/dL (60-115)
[2023-06-22 20:26] VITALS: BP 134/63; PULSE 97; RESP 16; TEMP 36.2; O2SAT 95
[2023-06-22 20:33] VITALS: BP 134/63; PULSE 97
[2023-06-22] MEDS: Atorvastatin Calcium 40 MG TABLET PO (20:33)
[2023-06-22] MEDS: cloZAPine 100 MG TABLET 400 MG PO (20:33)
[2023-06-22] MEDS: metFORMIN HCl 1,000 MG TABLET 1000 MG PO (20:33)
--- NOTE | 2023-06-22 21:45 | PC.NURSE ---
Patient's POC at 1935 was 107, provider notified/ordered to put a hold on HS Lantus.
[2023-06-23 05:48] LABS: Glucose, Whole Blood 128 mg/dL (60-115)
[2023-06-23] MEDS: Omeprazole 20 MG CAPSULE.DR PO (05:48)
[2023-06-23 08:37] VITALS: BP 118/57; PULSE 79; RESP 16; TEMP 36.8; O2SAT 98
[2023-06-23] MEDS: Cholecalciferol (Vitamin D3) 25 MCG TABLET PO (08:38)
[2023-06-23] MEDS: Famotidine 20 MG TABLET PO (08:39)
[2023-06-23] MEDS: Folic Acid 1 MG TABLET PO (08:39)
[2023-06-23] MEDS: cloZAPine 100 MG TABLET PO (08:39)
[2023-06-23] MEDS: methIMAzole 10 MG TABLET PO (08:39)
[2023-06-23] MEDS: ARIPiprazole 20 MG TABLET PO (08:39)
[2023-06-23 08:40] VITALS: BP 118/57; PULSE 80
[2023-06-23] MEDS: Metoprolol Tartrate 50 MG TABLET PO ×2 (08:40→19:43)
[2023-06-23] MEDS: metFORMIN HCl ER 500 MG TAB.ER.24H PO (08:40)
[2023-06-23] MEDS: lisinopriL 10 MG TABLET PO (08:40)
[2023-06-23] MEDS: Empagliflozin 10 MG TABLET PO (08:40)
[2023-06-23] MEDS: clonazePAM 0.5 MG TABLET PO ×3 (08:40→19:44)
[2023-06-23] MEDS: Ammonium Lactate 12 % Lotion 226 GM BOTTLE 1 APPL TOPICAL ×2 (10:36→20:01)
[2023-06-23] MEDS: Acetaminophen 325 MG TABLET 650 MG PO (11:11)
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
[2023-06-23 19:33] LABS: Glucose, Whole Blood 124 mg/dL (60-115)
[2023-06-23 19:42] VITALS: BP 145/85; PULSE 68; RESP 16; TEMP 36; O2SAT 97
[2023-06-23 19:43] VITALS: BP 145/85; PULSE 68
[2023-06-23] MEDS: metFORMIN HCl 1,000 MG TABLET 1000 MG PO (19:43)
[2023-06-23] MEDS: Atorvastatin Calcium 40 MG TABLET PO (19:44)
[2023-06-23] MEDS: Insulin Glargine,Hum.rec.anlog 100 UNIT/ML 10 ML VIAL 15 UNIT SUBCUT (19:44)
[2023-06-23] MEDS: cloZAPine 100 MG TABLET 400 MG PO (19:44)
[2023-06-24 05:42] LABS: Glucose, Whole Blood 135 mg/dL (60-115)
[2023-06-24] MEDS: Omeprazole 20 MG CAPSULE.DR PO (05:49)
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
[2023-06-24 08:43] VITALS: BP 125/59; PULSE 78; RESP 20; TEMP 36.2; O2SAT 97
[2023-06-24 08:44] VITALS: BP 125/59; PULSE 78
[2023-06-24] MEDS: Metoprolol Tartrate 50 MG TABLET PO ×2 (08:44→20:04)
[2023-06-24] MEDS: cloZAPine 100 MG TABLET PO (08:44)
[2023-06-24] MEDS: Cholecalciferol (Vitamin D3) 25 MCG TABLET PO (08:44)
[2023-06-24] MEDS: Famotidine 20 MG TABLET PO (08:45)
[2023-06-24] MEDS: ARIPiprazole 20 MG TABLET PO (08:45)
[2023-06-24] MEDS: methIMAzole 10 MG TABLET PO (08:45)
[2023-06-24 08:46] VITALS: BP 125/59
[2023-06-24] MEDS: Folic Acid 1 MG TABLET PO (08:46)
[2023-06-24] MEDS: Empagliflozin 10 MG TABLET PO (08:46)
[2023-06-24] MEDS: metFORMIN HCl ER 500 MG TAB.ER.24H PO (08:46)
[2023-06-24] MEDS: clonazePAM 0.5 MG TABLET PO ×3 (08:46→20:04)
[2023-06-24] MEDS: lisinopriL 10 MG TABLET PO (08:46)
[2023-06-24] MEDS: Ammonium Lactate 12 % Lotion 226 GM BOTTLE 1 APPL TOPICAL ×2 (08:47→20:27)
[2023-06-24 15:12] VITALS: BMI 29.8
[2023-06-24 19:58] LABS: Glucose, Whole Blood 153 mg/dL (60-115)
[2023-06-24 20:01] VITALS: BP 131/71; PULSE 74; RESP 16; TEMP 36.3; O2SAT 97
[2023-06-24 20:04] VITALS: BP 131/71; PULSE 74
[2023-06-24] MEDS: cloZAPine 100 MG TABLET 400 MG PO (20:04)
[2023-06-24] MEDS: Insulin Glargine,Hum.rec.anlog 100 UNIT/ML 10 ML VIAL 15 UNIT SUBCUT (20:04)
[2023-06-24] MEDS: Atorvastatin Calcium 40 MG TABLET PO (20:04)
[2023-06-24] MEDS: metFORMIN HCl 1,000 MG TABLET 1000 MG PO (20:04)
[2023-06-25 05:41] LABS: Glucose, Whole Blood 151 mg/dL (60-115)
[2023-06-25] MEDS: Omeprazole 20 MG CAPSULE.DR PO (06:00)
[2023-06-25 08:26] VITALS: BP 143/68; PULSE 85; RESP 20; TEMP 36.4; O2SAT 97
[2023-06-25] MEDS: Ammonium Lactate 12 % Lotion 226 GM BOTTLE 1 APPL TOPICAL ×2 (08:29→20:06)
[2023-06-25] MEDS: methIMAzole 10 MG TABLET PO (08:29)
[2023-06-25] MEDS: cloZAPine 100 MG TABLET PO (08:30)
[2023-06-25] MEDS: Folic Acid 1 MG TABLET PO (08:30)
[2023-06-25] MEDS: Famotidine 20 MG TABLET PO (08:30)
[2023-06-25 08:32] VITALS: BP 143/68; PULSE 85
[2023-06-25] MEDS: Metoprolol Tartrate 50 MG TABLET PO ×2 (08:32→20:06)
[2023-06-25] MEDS: metFORMIN HCl ER 500 MG TAB.ER.24H PO (08:32)
[2023-06-25] MEDS: Cholecalciferol (Vitamin D3) 25 MCG TABLET PO (08:32)
[2023-06-25] MEDS: ARIPiprazole 20 MG TABLET PO (08:33)
[2023-06-25] MEDS: clonazePAM 0.5 MG TABLET PO ×3 (08:34→20:06)
[2023-06-25] MEDS: Empagliflozin 10 MG TABLET PO (08:34)
[2023-06-25 08:35] VITALS: BP 143/68
[2023-06-25] MEDS: lisinopriL 10 MG TABLET PO (08:35)
[2023-06-25 09:09] LABS: Creatinine Clr Calc Pharmacy 66.6; Estimated Glomerular Filt Rate > 60
[2023-06-25] MEDS: Acetaminophen 325 MG TABLET 650 MG PO (09:16)
[2023-06-25 19:50] LABS: Glucose, Whole Blood 108 mg/dL (60-115)
[2023-06-25 20:06] VITALS: BP 140/75; PULSE 85
[2023-06-25] MEDS: cloZAPine 100 MG TABLET 400 MG PO (20:06)
[2023-06-25] MEDS: Atorvastatin Calcium 40 MG TABLET PO (20:06)
[2023-06-25] MEDS: metFORMIN HCl 1,000 MG TABLET 1000 MG PO (20:06)
[2023-06-25 20:35] VITALS: BP 140/75; PULSE 85; RESP 16; TEMP 37; O2SAT 99
[2023-06-26 05:35] LABS: Glucose, Whole Blood 156 mg/dL (60-115)
[2023-06-26] MEDS: Omeprazole 20 MG CAPSULE.DR PO (05:41)
[2023-06-26 08:00] VITALS: BP 171/77; PULSE 81; RESP 18; TEMP 36.7; O2SAT 96
[2023-06-26] MEDS: metFORMIN HCl ER 500 MG TAB.ER.24H PO (08:39)
[2023-06-26] MEDS: ARIPiprazole 20 MG TABLET PO (08:39)
[2023-06-26] MEDS: Empagliflozin 10 MG TABLET PO (08:39)
[2023-06-26] MEDS: Cholecalciferol (Vitamin D3) 25 MCG TABLET PO (08:39)
[2023-06-26] MEDS: Famotidine 20 MG TABLET PO (08:39)
[2023-06-26] MEDS: clonazePAM 0.5 MG TABLET PO ×3 (08:39→21:02)
[2023-06-26 08:40] VITALS: BP 171/77; PULSE 81
[2023-06-26] MEDS: Metoprolol Tartrate 50 MG TABLET PO ×2 (08:40→21:03)
[2023-06-26] MEDS: cloZAPine 100 MG TABLET PO (08:40)
[2023-06-26] MEDS: methIMAzole 10 MG TABLET PO (08:40)
[2023-06-26] MEDS: lisinopriL 10 MG TABLET PO (08:40)
[2023-06-26] MEDS: Folic Acid 1 MG TABLET PO (08:41)
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
[2023-06-26 20:00] VITALS: BP 162/76; PULSE 62; RESP 16; TEMP 36.1; O2SAT 98
[2023-06-26] MEDS: Insulin Glargine,Hum.rec.anlog 100 UNIT/ML 10 ML VIAL 15 UNIT SUBCUT (20:59)
[2023-06-26] MEDS: cloZAPine 100 MG TABLET 400 MG PO (21:02)
[2023-06-26 21:03] VITALS: BP 162/76; PULSE 62
[2023-06-26] MEDS: Atorvastatin Calcium 40 MG TABLET PO (21:04)
[2023-06-26] MEDS: metFORMIN HCl 1,000 MG TABLET 1000 MG PO (21:04)
[2023-06-26 21:16] LABS: Glucose, Whole Blood 120 mg/dL (60-115)
[2023-06-27] MEDS: Omeprazole 20 MG CAPSULE.DR PO (06:07)
[2023-06-27 06:38] LABS: Glucose, Whole Blood 133 mg/dL (60-115)
[2023-06-27 08:00] VITALS: BP 139/71; PULSE 76; RESP 18; TEMP 36.9; O2SAT 99
[2023-06-27 08:22] VITALS: BP 139/71; PULSE 76
[2023-06-27] MEDS: Metoprolol Tartrate 50 MG TABLET PO ×2 (08:22→20:27)
[2023-06-27] MEDS: Cholecalciferol (Vitamin D3) 25 MCG TABLET PO (08:23)
[2023-06-27] MEDS: ARIPiprazole 20 MG TABLET PO (08:23)
[2023-06-27] MEDS: methIMAzole 10 MG TABLET PO (08:23)
[2023-06-27] MEDS: Famotidine 20 MG TABLET PO (08:23)
[2023-06-27] MEDS: cloZAPine 100 MG TABLET PO (08:23)
[2023-06-27] MEDS: Folic Acid 1 MG TABLET PO (08:23)
[2023-06-27] MEDS: clonazePAM 0.5 MG TABLET PO ×3 (08:23→20:27)
[2023-06-27] MEDS: lisinopriL 10 MG TABLET PO (08:23)
[2023-06-27] MEDS: Empagliflozin 10 MG TABLET PO (08:23)
[2023-06-27] MEDS: metFORMIN HCl ER 500 MG TAB.ER.24H PO (08:23)
[2023-06-27 19:55] VITALS: BP 105/59; PULSE 73; RESP 18; TEMP 36.4; O2SAT 97
[2023-06-27 20:13] LABS: Glucose, Whole Blood 192 mg/dL (60-115)
[2023-06-27] MEDS: Atorvastatin Calcium 40 MG TABLET PO (20:26)
[2023-06-27] MEDS: metFORMIN HCl 1,000 MG TABLET 1000 MG PO (20:26)
[2023-06-27] MEDS: Acetaminophen 325 MG TABLET 650 MG PO (20:26)
[2023-06-27 20:27] VITALS: BP 105/59; PULSE 73
[2023-06-27] MEDS: cloZAPine 100 MG TABLET 400 MG PO (20:27)
[2023-06-27] MEDS: Insulin Glargine,Hum.rec.anlog 100 UNIT/ML 10 ML VIAL 15 UNIT SUBCUT (20:27)
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
[2023-06-28 06:16] LABS: Glucose, Whole Blood 152 mg/dL (60-115)
[2023-06-28] MEDS: Omeprazole 20 MG CAPSULE.DR PO (06:17)
[2023-06-28 08:00] VITALS: BP 128/62; PULSE 82; RESP 18; TEMP 36.4; O2SAT 97
[2023-06-28] MEDS: cloZAPine 100 MG TABLET PO (08:12)
[2023-06-28] MEDS: Cholecalciferol (Vitamin D3) 25 MCG TABLET PO (08:12)
[2023-06-28] MEDS: Folic Acid 1 MG TABLET PO (08:12)
[2023-06-28] MEDS: Famotidine 20 MG TABLET PO (08:12)
[2023-06-28 08:13] VITALS: BP 128/62; PULSE 82
[2023-06-28] MEDS: Empagliflozin 10 MG TABLET PO (08:13)
[2023-06-28] MEDS: clonazePAM 0.5 MG TABLET PO ×2 (08:13→20:00)
[2023-06-28] MEDS: ARIPiprazole 20 MG TABLET PO (08:13)
[2023-06-28] MEDS: lisinopriL 10 MG TABLET PO (08:13)
[2023-06-28] MEDS: Metoprolol Tartrate 50 MG TABLET PO ×2 (08:13→19:59)
[2023-06-28] MEDS: methIMAzole 10 MG TABLET PO (08:13)
[2023-06-28] MEDS: metFORMIN HCl ER 500 MG TAB.ER.24H PO (08:13)
[2023-06-28] MEDS: Ammonium Lactate 12 % Lotion 226 GM BOTTLE 1 APPL TOPICAL (08:16)
[2023-06-28 08:23] LABS: Neutrophils Absolute Auto 6.1 x10*3/uL (2.0-8.3); WBCANC 8.6 X10*3/uL
[2023-06-28] MEDS: Acetaminophen 325 MG TABLET 650 MG PO (13:18)
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
[2023-06-28 19:58] VITALS: BP 151/70; PULSE 64; RESP 18; O2SAT 96
[2023-06-28 19:59] VITALS: BP 151/70; PULSE 64
[2023-06-28] MEDS: metFORMIN HCl 1,000 MG TABLET 1000 MG PO (19:59)
[2023-06-28] MEDS: cloZAPine 100 MG TABLET 400 MG PO (20:00)
[2023-06-28] MEDS: Insulin Glargine,Hum.rec.anlog 100 UNIT/ML 10 ML VIAL 15 UNIT SUBCUT (20:00)
[2023-06-28] MEDS: Atorvastatin Calcium 40 MG TABLET PO (20:00)
[2023-06-28 20:03] LABS: Glucose, Whole Blood 106 mg/dL (60-115)
[2023-06-29] MEDS: Omeprazole 20 MG CAPSULE.DR PO (05:59)
[2023-06-29 06:11] LABS: Glucose, Whole Blood 182 mg/dL (60-115)
[2023-06-29 08:00] VITALS: BP 157/73; PULSE 79; RESP 18; TEMP 36.4; O2SAT 98
[2023-06-29 08:06] VITALS: BP 157/73; PULSE 79
[2023-06-29] MEDS: metFORMIN HCl ER 500 MG TAB.ER.24H PO (08:06)
[2023-06-29] MEDS: Folic Acid 1 MG TABLET PO (08:06)
[2023-06-29] MEDS: Metoprolol Tartrate 50 MG TABLET PO ×2 (08:06→20:08)
[2023-06-29] MEDS: lisinopriL 10 MG TABLET PO (08:06)
[2023-06-29] MEDS: clonazePAM 0.5 MG TABLET PO ×3 (08:06→20:08)
[2023-06-29] MEDS: methIMAzole 10 MG TABLET PO (08:06)
[2023-06-29] MEDS: Famotidine 20 MG TABLET PO (08:06)
[2023-06-29] MEDS: ARIPiprazole 20 MG TABLET PO (08:06)
[2023-06-29] MEDS: Cholecalciferol (Vitamin D3) 25 MCG TABLET PO (08:06)
[2023-06-29] MEDS: Empagliflozin 10 MG TABLET PO (08:06)
[2023-06-29] MEDS: cloZAPine 100 MG TABLET PO (09:40)
[2023-06-29] MEDS: Ammonium Lactate 12 % Lotion 226 GM BOTTLE 1 APPL TOPICAL ×2 (09:41→23:45)
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
[2023-06-29 20:00] VITALS: BP 134/61; PULSE 68; RESP 17; TEMP 36.6; O2SAT 97
[2023-06-29 20:06] LABS: Glucose, Whole Blood 133 mg/dL (60-115)
[2023-06-29] MEDS: cloZAPine 100 MG TABLET 400 MG PO (20:07)
[2023-06-29 20:08] VITALS: BP 142/69; PULSE 76
[2023-06-29] MEDS: metFORMIN HCl 1,000 MG TABLET 1000 MG PO (20:08)
[2023-06-29] MEDS: Atorvastatin Calcium 40 MG TABLET PO (20:08)
[2023-06-29] MEDS: Insulin Glargine,Hum.rec.anlog 100 UNIT/ML 10 ML VIAL 15 UNIT SUBCUT (20:08)
[2023-06-29] MEDS: Acetaminophen 325 MG TABLET 650 MG PO (20:08)
[2023-06-29] MEDS: traZODone HCL 50 MG TABLET PO (23:41)
[2023-06-30 05:38] LABS: Clozapine (Clozaril) 836 mcg/L; Norclozapine 515 mcg/L (25-400)
[2023-06-30 06:14] LABS: Glucose, Whole Blood 172 mg/dL (60-115)
[2023-06-30 08:00] VITALS: BP 136/65; PULSE 70; RESP 18; TEMP 36.6; O2SAT 99
[2023-06-30 08:31] VITALS: BP 136/65
[2023-06-30] MEDS: Omeprazole 20 MG CAPSULE.DR PO (08:31)
[2023-06-30] MEDS: Famotidine 20 MG TABLET PO (08:31)
[2023-06-30] MEDS: methIMAzole 10 MG TABLET PO (08:31)
[2023-06-30] MEDS: Cholecalciferol (Vitamin D3) 25 MCG TABLET PO (08:31)
[2023-06-30] MEDS: lisinopriL 10 MG TABLET PO (08:31)
[2023-06-30] MEDS: Folic Acid 1 MG TABLET PO (08:31)
[2023-06-30 08:32] VITALS: BP 136/65; PULSE 70
[2023-06-30] MEDS: ARIPiprazole 20 MG TABLET PO (08:32)
[2023-06-30] MEDS: cloZAPine 100 MG TABLET PO (08:32)
[2023-06-30] MEDS: metFORMIN HCl ER 500 MG TAB.ER.24H PO (08:32)
[2023-06-30] MEDS: Empagliflozin 10 MG TABLET PO (08:32)
[2023-06-30] MEDS: Metoprolol Tartrate 50 MG TABLET PO ×2 (08:32→20:37)
[2023-06-30] MEDS: Ammonium Lactate 12 % Lotion 226 GM BOTTLE 1 APPL TOPICAL ×2 (08:40→20:38)
[2023-06-30] MEDS: clonazePAM 0.5 MG TABLET PO ×3 (08:40→20:37)
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
[2023-06-30 20:00] VITALS: BP 112/57; PULSE 74; RESP 18; TEMP 36.2; O2SAT 97
[2023-06-30] MEDS: Insulin Glargine,Hum.rec.anlog 100 UNIT/ML 10 ML VIAL 15 UNIT SUBCUT (20:35)
[2023-06-30] MEDS: cloZAPine 25 MG TABLET 350 MG PO (20:36)
[2023-06-30 20:37] VITALS: BP 112/57; PULSE 74
[2023-06-30] MEDS: metFORMIN HCl 1,000 MG TABLET 1000 MG PO (20:37)
[2023-06-30] MEDS: Atorvastatin Calcium 40 MG TABLET PO (20:37)
[2023-06-30 20:48] LABS: Glucose, Whole Blood 177 mg/dL (60-115)
[2023-07-01] MEDS: hydrOXYzine HCL 25 MG TABLET PO ×2 (00:20→20:17)
[2023-07-01] MEDS: traZODone HCL 50 MG TABLET PO ×2 (00:20→20:18)
[2023-07-01] MEDS: Omeprazole 20 MG CAPSULE.DR PO (06:07)
[2023-07-01 06:42] LABS: Glucose, Whole Blood 152 mg/dL (60-115)
[2023-07-01 07:00] VITALS: BMI 30.1
[2023-07-01 08:47] VITALS: BP 133/60; PULSE 74; RESP 18; TEMP 36.3; O2SAT 98
[2023-07-01] MEDS: Ammonium Lactate 12 % Lotion 226 GM BOTTLE 1 APPL TOPICAL (10:35)
[2023-07-01] MEDS: cloZAPine 25 MG TABLET 50 MG PO (10:35)
[2023-07-01 10:36] VITALS: BP 133/60; PULSE 74
[2023-07-01] MEDS: Empagliflozin 10 MG TABLET PO (10:36)
[2023-07-01] MEDS: Metoprolol Tartrate 50 MG TABLET PO ×2 (10:36→20:17)
[2023-07-01] MEDS: metFORMIN HCl ER 500 MG TAB.ER.24H PO (10:36)
[2023-07-01 10:37] VITALS: BP 133/60
[2023-07-01] MEDS: Cholecalciferol (Vitamin D3) 25 MCG TABLET PO (10:37)
[2023-07-01] MEDS: lisinopriL 10 MG TABLET PO (10:37)
[2023-07-01] MEDS: Folic Acid 1 MG TABLET PO (10:37)
[2023-07-01] MEDS: methIMAzole 10 MG TABLET PO (10:37)
[2023-07-01] MEDS: Famotidine 20 MG TABLET PO (10:38)
[2023-07-01] MEDS: clonazePAM 0.5 MG TABLET PO ×3 (10:38→20:17)
[2023-07-01] MEDS: ARIPiprazole 20 MG TABLET PO (10:38)
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
[2023-07-01 20:00] VITALS: BP 121/68; PULSE 75; RESP 16; TEMP 35.7; O2SAT 97
[2023-07-01 20:17] VITALS: BP 127/72; PULSE 68
[2023-07-01] MEDS: metFORMIN HCl 1,000 MG TABLET 1000 MG PO (20:17)
[2023-07-01] MEDS: Atorvastatin Calcium 40 MG TABLET PO (20:17)
[2023-07-01] MEDS: Insulin Glargine,Hum.rec.anlog 100 UNIT/ML 10 ML VIAL 15 UNIT SUBCUT (20:18)
[2023-07-01] MEDS: cloZAPine 25 MG TABLET 350 MG PO (20:30)
[2023-07-01 21:02] LABS: Glucose, Whole Blood 186 mg/dL (60-115)
[2023-07-02] MEDS: hydrOXYzine HCL 25 MG TABLET PO ×2 (05:47→21:00)
[2023-07-02] MEDS: Omeprazole 20 MG CAPSULE.DR PO (05:47)
[2023-07-02 06:31] LABS: Glucose, Whole Blood 190 mg/dL (60-115)
[2023-07-02 08:00] VITALS: BP 167/70; PULSE 75; RESP 18; TEMP 36.6; O2SAT 98
[2023-07-02 08:09] VITALS: BP 167/70
[2023-07-02] MEDS: lisinopriL 10 MG TABLET PO (08:09)
[2023-07-02 08:13] VITALS: BP 167/70; PULSE 78
[2023-07-02] MEDS: Folic Acid 1 MG TABLET PO (08:13)
[2023-07-02] MEDS: Metoprolol Tartrate 50 MG TABLET PO ×2 (08:13→23:07)
[2023-07-02] MEDS: ARIPiprazole 20 MG TABLET PO (08:14)
[2023-07-02] MEDS: metFORMIN HCl ER 500 MG TAB.ER.24H PO (08:14)
[2023-07-02] MEDS: methIMAzole 10 MG TABLET PO (08:14)
[2023-07-02] MEDS: clonazePAM 0.5 MG TABLET PO ×3 (08:14→20:59)
[2023-07-02] MEDS: Famotidine 20 MG TABLET PO (08:14)
[2023-07-02] MEDS: Empagliflozin 10 MG TABLET PO (08:14)
[2023-07-02] MEDS: cloZAPine 25 MG TABLET 50 MG PO ×2 (08:14→20:57)
[2023-07-02] MEDS: Ammonium Lactate 12 % Lotion 226 GM BOTTLE 1 APPL TOPICAL (08:15)
[2023-07-02 08:30] LABS: Creatinine Clr Calc Pharmacy 71.2; Estimated Glomerular Filt Rate > 60
[2023-07-02] MEDS: Cholecalciferol (Vitamin D3) 25 MCG TABLET PO (08:31)
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
[2023-07-02 20:00] VITALS: BP 132/62; PULSE 65; RESP 18; TEMP 36.2; O2SAT 97
[2023-07-02 20:57] LABS: Glucose, Whole Blood 168 mg/dL (60-115)
[2023-07-02] MEDS: metFORMIN HCl 1,000 MG TABLET 1000 MG PO (20:57)
[2023-07-02] MEDS: Atorvastatin Calcium 40 MG TABLET PO (20:58)
[2023-07-02] MEDS: cloZAPine 100 MG TABLET 300 MG PO (20:59)
[2023-07-02] MEDS: Insulin Glargine,Hum.rec.anlog 100 UNIT/ML 10 ML VIAL 15 UNIT SUBCUT (21:00)
[2023-07-02 23:07] VITALS: BP 133/62; PULSE 65
[2023-07-03] MEDS: Omeprazole 20 MG CAPSULE.DR PO (06:07)
[2023-07-03 08:15] LABS: Glucose, Whole Blood 179 mg/dL (60-115)
[2023-07-03 08:34] VITALS: BP 147/65; PULSE 84; RESP 18; TEMP 36.2; O2SAT 99
[2023-07-03] MEDS: Famotidine 20 MG TABLET PO (08:39)
[2023-07-03] MEDS: Empagliflozin 10 MG TABLET PO (08:39)
[2023-07-03 08:45] VITALS: BP 147/65; PULSE 84
[2023-07-03] MEDS: Metoprolol Tartrate 50 MG TABLET PO ×2 (08:45→20:55)
[2023-07-03] MEDS: ARIPiprazole 20 MG TABLET PO (08:45)
[2023-07-03] MEDS: cloZAPine 25 MG TABLET 50 MG PO ×2 (08:45→20:56)
[2023-07-03] MEDS: methIMAzole 10 MG TABLET PO (08:45)
[2023-07-03] MEDS: Cholecalciferol (Vitamin D3) 25 MCG TABLET PO (08:45)
[2023-07-03] MEDS: clonazePAM 0.5 MG TABLET PO ×3 (08:45→20:56)
[2023-07-03] MEDS: metFORMIN HCl ER 500 MG TAB.ER.24H PO (08:45)
[2023-07-03 08:46] VITALS: BP 147/65
[2023-07-03] MEDS: lisinopriL 10 MG TABLET PO (08:46)
[2023-07-03] MEDS: Folic Acid 1 MG TABLET PO (08:46)
[2023-07-03] MEDS: Ammonium Lactate 12 % Lotion 226 GM BOTTLE 1 APPL TOPICAL (09:18)
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
[2023-07-03 19:48] LABS: Glucose, Whole Blood 133 mg/dL (60-115)
[2023-07-03 19:57] VITALS: BP 120/64; PULSE 67; RESP 16; TEMP 36.2; O2SAT 96
[2023-07-03 20:55] VITALS: BP 120/64; PULSE 67
[2023-07-03] MEDS: cloZAPine 100 MG TABLET 300 MG PO (20:55)
[2023-07-03] MEDS: Atorvastatin Calcium 40 MG TABLET PO (20:56)
[2023-07-03] MEDS: metFORMIN HCl 1,000 MG TABLET 1000 MG PO (20:56)
[2023-07-03] MEDS: Insulin Glargine,Hum.rec.anlog 100 UNIT/ML 10 ML VIAL 15 UNIT SUBCUT (20:58)
[2023-07-04] MEDS: Omeprazole 20 MG CAPSULE.DR PO (05:55)
[2023-07-04 06:06] LABS: Glucose, Whole Blood 128 mg/dL (60-115)
[2023-07-04 08:32] VITALS: BP 107/60; PULSE 84; RESP 16; TEMP 36; O2SAT 98
[2023-07-04 08:37] VITALS: BP 107/60; PULSE 84
[2023-07-04] MEDS: Metoprolol Tartrate 50 MG TABLET PO ×2 (08:37→20:17)
[2023-07-04] MEDS: lisinopriL 10 MG TABLET PO (08:37)
[2023-07-04] MEDS: Famotidine 20 MG TABLET PO (08:37)
[2023-07-04] MEDS: metFORMIN HCl ER 500 MG TAB.ER.24H PO (08:37)
[2023-07-04] MEDS: Ammonium Lactate 12 % Lotion 226 GM BOTTLE 1 APPL TOPICAL ×2 (08:37→20:21)
[2023-07-04] MEDS: Cholecalciferol (Vitamin D3) 25 MCG TABLET PO (08:38)
[2023-07-04] MEDS: methIMAzole 10 MG TABLET PO (08:38)
[2023-07-04] MEDS: Folic Acid 1 MG TABLET PO (08:38)
[2023-07-04] MEDS: Empagliflozin 10 MG TABLET PO (08:38)
[2023-07-04] MEDS: cloZAPine 25 MG TABLET 50 MG PO ×2 (08:38→20:15)
[2023-07-04] MEDS: ARIPiprazole 20 MG TABLET PO (08:38)
[2023-07-04] MEDS: clonazePAM 0.5 MG TABLET PO ×3 (08:38→20:16)
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
[2023-07-04 20:00] VITALS: BP 134/70; PULSE 58; TEMP 35.7; O2SAT 97
[2023-07-04 20:01] LABS: Glucose, Whole Blood 129 mg/dL (60-115)
[2023-07-04] MEDS: metFORMIN HCl 1,000 MG TABLET 1000 MG PO (20:16)
[2023-07-04] MEDS: Atorvastatin Calcium 40 MG TABLET PO (20:16)
[2023-07-04] MEDS: cloZAPine 100 MG TABLET 300 MG PO (20:16)
[2023-07-04 20:17] VITALS: BP 154/70; PULSE 58
[2023-07-04] MEDS: Insulin Glargine,Hum.rec.anlog 100 UNIT/ML 10 ML VIAL 15 UNIT SUBCUT (20:17)
[2023-07-05 06:03] LABS: Glucose, Whole Blood 105 mg/dL (60-115)
[2023-07-05] MEDS: Omeprazole 20 MG CAPSULE.DR PO (06:05)
[2023-07-05 07:08] LABS: Neut%MD 51.5 %; Neutrophils Absolute Auto 3.7 x10*3/uL (2.0-8.3); WBCANC 7.2 X10*3/uL
[2023-07-05 09:03] VITALS: BP 131/66; PULSE 72; RESP 18; TEMP 36; O2SAT 99
[2023-07-05] MEDS: ARIPiprazole 20 MG TABLET PO (09:04)
[2023-07-05] MEDS: Empagliflozin 10 MG TABLET PO (09:04)
[2023-07-05] MEDS: methIMAzole 10 MG TABLET PO (09:05)
[2023-07-05] MEDS: Metoprolol Tartrate 50 MG TABLET PO ×2 (09:05→19:57)
[2023-07-05] MEDS: lisinopriL 10 MG TABLET PO (09:05)
[2023-07-05] MEDS: clonazePAM 0.5 MG TABLET PO ×3 (09:06→19:58)
[2023-07-05] MEDS: metFORMIN HCl ER 500 MG TAB.ER.24H PO (09:06)
[2023-07-05] MEDS: Folic Acid 1 MG TABLET PO (09:06)
[2023-07-05] MEDS: Cholecalciferol (Vitamin D3) 25 MCG TABLET PO (09:06)
[2023-07-05] MEDS: Famotidine 20 MG TABLET PO (09:06)
[2023-07-05] MEDS: Ammonium Lactate 12 % Lotion 226 GM BOTTLE 1 APPL TOPICAL ×2 (09:07→19:58)
[2023-07-05] MEDS: cloZAPine 25 MG TABLET 50 MG PO ×2 (09:48→20:03)
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
[2023-07-05 19:52] LABS: Glucose, Whole Blood 136 mg/dL (60-115)
[2023-07-05 19:57] VITALS: BP 145/71; PULSE 67
[2023-07-05] MEDS: cloZAPine 100 MG TABLET 300 MG PO (19:57)
[2023-07-05] MEDS: Atorvastatin Calcium 40 MG TABLET PO (19:57)
[2023-07-05] MEDS: metFORMIN HCl 1,000 MG TABLET 1000 MG PO (19:58)
[2023-07-05] MEDS: Insulin Glargine,Hum.rec.anlog 100 UNIT/ML 10 ML VIAL 15 UNIT SUBCUT (19:58)
[2023-07-05 20:00] VITALS: BP 145/71; PULSE 67; RESP 18; TEMP 35.8; O2SAT 97
[2023-07-06 05:28] LABS: Glucose, Whole Blood 160 mg/dL (60-115)
[2023-07-06] MEDS: Omeprazole 20 MG CAPSULE.DR PO (05:45)
[2023-07-06 08:00] VITALS: BP 134/65; PULSE 74; RESP 18; TEMP 36.6; O2SAT 98
[2023-07-06 08:07] VITALS: BP 134/65; PULSE 74
[2023-07-06] MEDS: Metoprolol Tartrate 50 MG TABLET PO ×2 (08:07→19:56)
[2023-07-06] MEDS: Empagliflozin 10 MG TABLET PO (08:07)
[2023-07-06 08:08] VITALS: BP 134/65
[2023-07-06] MEDS: methIMAzole 10 MG TABLET PO (08:08)
[2023-07-06] MEDS: Folic Acid 1 MG TABLET PO (08:08)
[2023-07-06] MEDS: lisinopriL 10 MG TABLET PO (08:08)
[2023-07-06] MEDS: metFORMIN HCl ER 500 MG TAB.ER.24H PO (08:08)
[2023-07-06] MEDS: ARIPiprazole 20 MG TABLET PO (08:08)
[2023-07-06] MEDS: Famotidine 20 MG TABLET PO (08:08)
[2023-07-06] MEDS: Cholecalciferol (Vitamin D3) 25 MCG TABLET PO (08:08)
[2023-07-06] MEDS: clonazePAM 0.5 MG TABLET PO ×3 (08:08→19:57)
[2023-07-06] MEDS: Ammonium Lactate 12 % Lotion 226 GM BOTTLE 1 APPL TOPICAL ×2 (08:09→20:06)
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
[2023-07-06 19:55] LABS: Glucose, Whole Blood 136 mg/dL (60-115)
[2023-07-06] MEDS: cloZAPine 25 MG TABLET 50 MG PO (19:55)
[2023-07-06] MEDS: cloZAPine 100 MG TABLET 300 MG PO (19:55)
[2023-07-06 19:56] VITALS: BP 138/63; PULSE 70
[2023-07-06] MEDS: metFORMIN HCl 1,000 MG TABLET 1000 MG PO (19:56)
[2023-07-06] MEDS: Atorvastatin Calcium 40 MG TABLET PO (19:56)
[2023-07-06] MEDS: Insulin Glargine,Hum.rec.anlog 100 UNIT/ML 10 ML VIAL 15 UNIT SUBCUT (19:57)
[2023-07-06 20:00] VITALS: BP 138/63; PULSE 70; TEMP 36.2; O2SAT 97
[2023-07-07] MEDS: Omeprazole 20 MG CAPSULE.DR PO (06:19)
[2023-07-07 06:49] LABS: Glucose, Whole Blood 113 mg/dL (60-115)
[2023-07-07 08:00] VITALS: BP 145/69; PULSE 83; RESP 18; TEMP 36.1; O2SAT 99
[2023-07-07 08:49] VITALS: BP 145/69; PULSE 83
[2023-07-07] MEDS: Metoprolol Tartrate 50 MG TABLET PO ×2 (08:49→19:36)
[2023-07-07 08:50] VITALS: BP 145/69
[2023-07-07] MEDS: lisinopriL 10 MG TABLET PO (08:50)
[2023-07-07] MEDS: ARIPiprazole 20 MG TABLET PO (08:50)
[2023-07-07] MEDS: clonazePAM 0.5 MG TABLET PO ×3 (08:50→19:37)
[2023-07-07] MEDS: metFORMIN HCl ER 500 MG TAB.ER.24H PO (08:50)
[2023-07-07] MEDS: methIMAzole 10 MG TABLET PO (08:51)
[2023-07-07] MEDS: Famotidine 20 MG TABLET PO (08:51)
[2023-07-07] MEDS: Folic Acid 1 MG TABLET PO (08:51)
[2023-07-07] MEDS: Empagliflozin 10 MG TABLET PO (08:51)
[2023-07-07] MEDS: Cholecalciferol (Vitamin D3) 25 MCG TABLET PO (08:51)
[2023-07-07] MEDS: Ammonium Lactate 12 % Lotion 226 GM BOTTLE 1 APPL TOPICAL ×2 (10:58→22:00)
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
[2023-07-07] MEDS: Insulin Glargine,Hum.rec.anlog 100 UNIT/ML 10 ML VIAL 15 UNIT SUBCUT (19:35)
[2023-07-07] MEDS: cloZAPine 100 MG TABLET 300 MG PO (19:36)
[2023-07-07] MEDS: metFORMIN HCl 1,000 MG TABLET 1000 MG PO (19:36)
[2023-07-07] MEDS: traZODone HCL 50 MG TABLET PO (19:37)
[2023-07-07] MEDS: Atorvastatin Calcium 40 MG TABLET PO (19:37)
[2023-07-07] MEDS: cloZAPine 25 MG TABLET 50 MG PO (19:37)
[2023-07-07 19:38] LABS: Glucose, Whole Blood 135 mg/dL (60-115)
[2023-07-07 20:00] VITALS: BP 154/70; PULSE 61; TEMP 36; O2SAT 99
[2023-07-08] MEDS: Omeprazole 20 MG CAPSULE.DR PO (05:47)
[2023-07-08 06:48] LABS: Glucose, Whole Blood 131 mg/dL (60-115)
[2023-07-08 08:42] VITALS: BP 133/68; PULSE 73; RESP 18; TEMP 36.6; O2SAT 99
[2023-07-08 08:45] VITALS: BP 133/68; PULSE 73
[2023-07-08] MEDS: metFORMIN HCl ER 500 MG TAB.ER.24H PO (08:45)
[2023-07-08] MEDS: Metoprolol Tartrate 50 MG TABLET PO ×2 (08:45→21:01)
[2023-07-08] MEDS: Folic Acid 1 MG TABLET PO (08:46)
[2023-07-08] MEDS: cloZAPine 25 MG TABLET 50 MG PO ×3 (08:46→21:03)
[2023-07-08 08:47] VITALS: BP 133/68
[2023-07-08] MEDS: ARIPiprazole 20 MG TABLET PO (08:47)
[2023-07-08] MEDS: clonazePAM 0.5 MG TABLET PO ×2 (08:47→15:27)
[2023-07-08] MEDS: lisinopriL 10 MG TABLET PO (08:47)
[2023-07-08] MEDS: Cholecalciferol (Vitamin D3) 25 MCG TABLET PO (08:47)
[2023-07-08] MEDS: methIMAzole 10 MG TABLET PO (08:48)
[2023-07-08] MEDS: Empagliflozin 10 MG TABLET PO (08:48)
[2023-07-08] MEDS: Ammonium Lactate 12 % Lotion 226 GM BOTTLE 1 APPL TOPICAL (08:48)
[2023-07-08] MEDS: Famotidine 20 MG TABLET PO (08:51)
[2023-07-08 09:40] VITALS: BMI 29.8
[2023-07-08] MEDS: hydrOXYzine HCL 25 MG TABLET PO (12:24)
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
[2023-07-08 19:59] LABS: Glucose, Whole Blood 134 mg/dL (60-115)
[2023-07-08 20:00] VITALS: BP 136/65; PULSE 70; RESP 16; TEMP 36.1; O2SAT 96
[2023-07-08] MEDS: metFORMIN HCl 1,000 MG TABLET 1000 MG PO (21:00)
[2023-07-08 21:01] VITALS: BP 136/75; PULSE 70
[2023-07-08] MEDS: traZODone HCL 50 MG TABLET PO (21:01)
[2023-07-08] MEDS: Atorvastatin Calcium 40 MG TABLET PO (21:01)
[2023-07-08] MEDS: cloZAPine 100 MG TABLET 300 MG PO (21:02)
[2023-07-08] MEDS: Insulin Glargine,Hum.rec.anlog 100 UNIT/ML 10 ML VIAL 15 UNIT SUBCUT (21:05)
[2023-07-09] MEDS: Omeprazole 20 MG CAPSULE.DR PO (05:52)
[2023-07-09 06:23] LABS: Glucose, Whole Blood 114 mg/dL (60-115)
[2023-07-09 08:29] LABS: Creatinine Clr Calc Pharmacy 80.3; Estimated Glomerular Filt Rate > 60
[2023-07-09 09:44] VITALS: BP 118/59; PULSE 76; RESP 16; TEMP 36.5; O2SAT 98
[2023-07-09 09:45] VITALS: BP 118/59; PULSE 76
[2023-07-09] MEDS: ARIPiprazole 20 MG TABLET PO (09:45)
[2023-07-09] MEDS: Metoprolol Tartrate 50 MG TABLET PO ×2 (09:45→20:12)
[2023-07-09] MEDS: Empagliflozin 10 MG TABLET PO (09:45)
[2023-07-09 09:46] VITALS: BP 118/59
[2023-07-09] MEDS: Folic Acid 1 MG TABLET PO (09:46)
[2023-07-09] MEDS: cloZAPine 25 MG TABLET 50 MG PO ×2 (09:46→20:11)
[2023-07-09] MEDS: Cholecalciferol (Vitamin D3) 25 MCG TABLET PO (09:46)
[2023-07-09] MEDS: lisinopriL 10 MG TABLET PO (09:46)
[2023-07-09] MEDS: Ammonium Lactate 12 % Lotion 226 GM BOTTLE 1 APPL TOPICAL (09:46)
[2023-07-09] MEDS: Famotidine 20 MG TABLET PO (09:46)
[2023-07-09] MEDS: metFORMIN HCl ER 500 MG TAB.ER.24H PO (09:46)
[2023-07-09] MEDS: methIMAzole 10 MG TABLET PO (10:13)
[2023-07-09] MEDS: hydrOXYzine HCL 25 MG TABLET PO (14:09)
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
[2023-07-09] MEDS: clonazePAM 0.5 MG TABLET PO ×2 (15:38→20:12)
[2023-07-09 20:00] VITALS: BP 145/87; PULSE 70; RESP 16; TEMP 35.6; O2SAT 97
[2023-07-09] MEDS: Insulin Glargine,Hum.rec.anlog 100 UNIT/ML 10 ML VIAL 15 UNIT SUBCUT (20:09)
[2023-07-09] MEDS: cloZAPine 100 MG TABLET 300 MG PO (20:10)
[2023-07-09 20:11] LABS: Glucose, Whole Blood 118 mg/dL (60-115)
[2023-07-09] MEDS: metFORMIN HCl 1,000 MG TABLET 1000 MG PO (20:11)
[2023-07-09] MEDS: Atorvastatin Calcium 40 MG TABLET PO (20:12)
[2023-07-10] MEDS: Omeprazole 20 MG CAPSULE.DR PO (06:13)
[2023-07-10 06:21] LABS: Glucose, Whole Blood 117 mg/dL (60-115)
[2023-07-10 07:55] VITALS: BP 128/72; PULSE 81; RESP 18; TEMP 36.6; O2SAT 97
[2023-07-10 08:01] VITALS: BP 128/72; PULSE 81
[2023-07-10] MEDS: Metoprolol Tartrate 50 MG TABLET PO ×2 (08:01→20:46)
[2023-07-10 08:02] VITALS: BP 128/72
[2023-07-10] MEDS: metFORMIN HCl ER 500 MG TAB.ER.24H PO (08:02)
[2023-07-10] MEDS: Empagliflozin 10 MG TABLET PO (08:02)
[2023-07-10] MEDS: Folic Acid 1 MG TABLET PO (08:02)
[2023-07-10] MEDS: methIMAzole 10 MG TABLET PO (08:02)
[2023-07-10] MEDS: lisinopriL 10 MG TABLET PO (08:02)
[2023-07-10] MEDS: Cholecalciferol (Vitamin D3) 25 MCG TABLET PO (08:03)
[2023-07-10] MEDS: cloZAPine 25 MG TABLET 50 MG PO ×2 (08:03→20:47)
[2023-07-10] MEDS: Famotidine 20 MG TABLET PO (08:03)
[2023-07-10] MEDS: clonazePAM 0.5 MG TABLET PO ×3 (08:03→20:46)
[2023-07-10] MEDS: ARIPiprazole 20 MG TABLET PO (08:03)
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
[2023-07-10 20:00] VITALS: BP 116/63; PULSE 72; RESP 16; TEMP 36.1; O2SAT 99
[2023-07-10 20:38] LABS: Glucose, Whole Blood 163 mg/dL (60-115)
[2023-07-10 20:46] VITALS: BP 116/60; PULSE 72
[2023-07-10] MEDS: cloZAPine 100 MG TABLET 300 MG PO (20:46)
[2023-07-10] MEDS: traZODone HCL 50 MG TABLET PO (20:47)
[2023-07-10] MEDS: metFORMIN HCl 1,000 MG TABLET 1000 MG PO (20:48)
[2023-07-10] MEDS: Atorvastatin Calcium 40 MG TABLET PO (20:48)
[2023-07-10] MEDS: Insulin Glargine,Hum.rec.anlog 100 UNIT/ML 10 ML VIAL 15 UNIT SUBCUT (20:49)
[2023-07-11] MEDS: Omeprazole 20 MG CAPSULE.DR PO (06:19)
[2023-07-11 06:35] LABS: Glucose, Whole Blood 110 mg/dL (60-115)
[2023-07-11 07:52] VITALS: BP 149/68; PULSE 71; RESP 18; TEMP 37; O2SAT 98
[2023-07-11 08:29] VITALS: BP 149/68
[2023-07-11] MEDS: cloZAPine 25 MG TABLET 50 MG PO ×2 (08:29→19:45)
[2023-07-11] MEDS: Empagliflozin 10 MG TABLET PO (08:29)
[2023-07-11] MEDS: Folic Acid 1 MG TABLET PO (08:29)
[2023-07-11] MEDS: ARIPiprazole 20 MG TABLET PO (08:29)
[2023-07-11] MEDS: lisinopriL 10 MG TABLET PO (08:29)
[2023-07-11] MEDS: metFORMIN HCl ER 500 MG TAB.ER.24H PO (08:29)
[2023-07-11 08:30] VITALS: BP 149/68; PULSE 71
[2023-07-11] MEDS: clonazePAM 0.5 MG TABLET PO ×3 (08:30→19:46)
[2023-07-11] MEDS: Cholecalciferol (Vitamin D3) 25 MCG TABLET PO (08:30)
[2023-07-11] MEDS: methIMAzole 10 MG TABLET PO (08:30)
[2023-07-11] MEDS: Famotidine 20 MG TABLET PO (08:30)
[2023-07-11] MEDS: Metoprolol Tartrate 50 MG TABLET PO ×2 (08:30→19:46)
[2023-07-11] MEDS: Ammonium Lactate 12 % Lotion 226 GM BOTTLE 1 APPL TOPICAL ×2 (08:30→20:32)
[2023-07-11 19:35] LABS: Glucose, Whole Blood 156 mg/dL (60-115)
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
[2023-07-11 19:42] VITALS: BP 103/58; PULSE 74; RESP 16; TEMP 37; O2SAT 96
[2023-07-11] MEDS: cloZAPine 100 MG TABLET 300 MG PO (19:45)
[2023-07-11 19:46] VITALS: BP 103/58; PULSE 74
[2023-07-11] MEDS: Insulin Glargine,Hum.rec.anlog 100 UNIT/ML 10 ML VIAL 15 UNIT SUBCUT (19:46)
[2023-07-11] MEDS: metFORMIN HCl 1,000 MG TABLET 1000 MG PO (19:46)
[2023-07-11] MEDS: Atorvastatin Calcium 40 MG TABLET PO (19:46)
[2023-07-12] MEDS: Omeprazole 20 MG CAPSULE.DR PO (05:41)
[2023-07-12 05:48] LABS: Glucose, Whole Blood 106 mg/dL (60-115)
[2023-07-12 07:45] LABS: Neut%MD 62.3 %; Neutrophils Absolute Auto 5.6 x10*3/uL (2.0-8.3)
[2023-07-12 08:23] VITALS: BP 132/65; PULSE 74; RESP 18; TEMP 35.8; O2SAT 100
[2023-07-12 09:14] VITALS: BP 132/65; PULSE 74
[2023-07-12] MEDS: Metoprolol Tartrate 50 MG TABLET PO ×2 (09:14→20:16)
[2023-07-12] MEDS: metFORMIN HCl ER 500 MG TAB.ER.24H PO (09:14)
[2023-07-12] MEDS: ARIPiprazole 20 MG TABLET PO (09:14)
[2023-07-12] MEDS: Ammonium Lactate 12 % Lotion 226 GM BOTTLE 1 APPL TOPICAL (09:14)
[2023-07-12] MEDS: Cholecalciferol (Vitamin D3) 25 MCG TABLET PO (09:14)
[2023-07-12] MEDS: methIMAzole 10 MG TABLET PO (09:14)
[2023-07-12] MEDS: clonazePAM 0.5 MG TABLET PO ×3 (09:14→20:17)
[2023-07-12] MEDS: Folic Acid 1 MG TABLET PO (09:14)
[2023-07-12] MEDS: Empagliflozin 10 MG TABLET PO (09:14)
[2023-07-12 09:15] VITALS: BP 132/65
[2023-07-12] MEDS: cloZAPine 25 MG TABLET 50 MG PO ×2 (09:15→20:17)
[2023-07-12] MEDS: lisinopriL 10 MG TABLET PO (09:15)
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
[2023-07-12 19:55] LABS: Glucose, Whole Blood 124 mg/dL (60-115)
[2023-07-12 20:00] VITALS: BP 134/65; PULSE 70; RESP 18; TEMP 36; O2SAT 98
[2023-07-12] MEDS: metFORMIN HCl 1,000 MG TABLET 1000 MG PO (20:16)
[2023-07-12] MEDS: Atorvastatin Calcium 40 MG TABLET PO (20:17)
[2023-07-12] MEDS: cloZAPine 100 MG TABLET 300 MG PO (20:17)
[2023-07-12] MEDS: Insulin Glargine,Hum.rec.anlog 100 UNIT/ML 10 ML VIAL 15 UNIT SUBCUT (20:17)
[2023-07-13] MEDS: Omeprazole 20 MG CAPSULE.DR PO (06:26)
[2023-07-13 06:32] LABS: Glucose, Whole Blood 127 mg/dL (60-115)
[2023-07-13 07:58] VITALS: BP 144/65; PULSE 76; RESP 18; TEMP 36.3; O2SAT 99
[2023-07-13 08:01] VITALS: BP 144/65
[2023-07-13] MEDS: lisinopriL 10 MG TABLET PO (08:01)
[2023-07-13] MEDS: Ammonium Lactate 12 % Lotion 226 GM BOTTLE 1 APPL TOPICAL ×2 (08:01→19:52)
[2023-07-13] MEDS: Empagliflozin 10 MG TABLET PO (08:02)
[2023-07-13] MEDS: Famotidine 20 MG TABLET PO (08:02)
[2023-07-13 08:03] VITALS: BP 144/65; PULSE 76
[2023-07-13] MEDS: Folic Acid 1 MG TABLET PO (08:03)
[2023-07-13] MEDS: metFORMIN HCl ER 500 MG TAB.ER.24H PO (08:03)
[2023-07-13] MEDS: clonazePAM 0.5 MG TABLET PO ×3 (08:03→19:45)
[2023-07-13] MEDS: cloZAPine 25 MG TABLET 50 MG PO ×2 (08:03→19:46)
[2023-07-13] MEDS: Metoprolol Tartrate 50 MG TABLET PO ×2 (08:03→19:45)
[2023-07-13] MEDS: methIMAzole 10 MG TABLET PO (08:03)
[2023-07-13] MEDS: ARIPiprazole 20 MG TABLET PO (08:03)
[2023-07-13] MEDS: Cholecalciferol (Vitamin D3) 25 MCG TABLET PO (08:04)
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
[2023-07-13 19:38] LABS: Glucose, Whole Blood 142 mg/dL (60-115)
[2023-07-13] MEDS: cloZAPine 100 MG TABLET 300 MG PO (19:44)
[2023-07-13 19:45] VITALS: BP 147/76; PULSE 65
[2023-07-13] MEDS: Atorvastatin Calcium 40 MG TABLET PO (19:45)
[2023-07-13] MEDS: metFORMIN HCl 1,000 MG TABLET 1000 MG PO (19:45)
[2023-07-13] MEDS: Insulin Glargine,Hum.rec.anlog 100 UNIT/ML 10 ML VIAL 15 UNIT SUBCUT (19:55)
[2023-07-13 20:58] VITALS: BP 147/76; PULSE 65; TEMP 30.2; O2SAT 99
[2023-07-14 05:39] LABS: Glucose, Whole Blood 131 mg/dL (60-115)
[2023-07-14] MEDS: Omeprazole 20 MG CAPSULE.DR PO (06:13)
[2023-07-14 08:00] VITALS: BP 116/62; PULSE 86; RESP 18; TEMP 36.8; O2SAT 99
[2023-07-14 08:26] VITALS: BP 116/62; PULSE 86
[2023-07-14] MEDS: metFORMIN HCl ER 500 MG TAB.ER.24H PO (08:26)
[2023-07-14] MEDS: Metoprolol Tartrate 50 MG TABLET PO ×2 (08:26→20:39)
[2023-07-14 08:27] VITALS: BP 116/62
[2023-07-14] MEDS: Cholecalciferol (Vitamin D3) 25 MCG TABLET PO (08:27)
[2023-07-14] MEDS: Folic Acid 1 MG TABLET PO (08:27)
[2023-07-14] MEDS: cloZAPine 25 MG TABLET 50 MG PO ×2 (08:27→20:39)
[2023-07-14] MEDS: Empagliflozin 10 MG TABLET PO (08:27)
[2023-07-14] MEDS: Famotidine 20 MG TABLET PO (08:27)
[2023-07-14] MEDS: methIMAzole 10 MG TABLET PO (08:27)
[2023-07-14] MEDS: ARIPiprazole 20 MG TABLET PO (08:27)
[2023-07-14] MEDS: clonazePAM 0.5 MG TABLET PO ×3 (08:27→23:57)
[2023-07-14] MEDS: lisinopriL 10 MG TABLET PO (08:27)
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
[2023-07-14 20:00] VITALS: BP 108/57; PULSE 75; RESP 16; TEMP 35.9; O2SAT 94
[2023-07-14] MEDS: Atorvastatin Calcium 40 MG TABLET PO (20:38)
[2023-07-14] MEDS: cloZAPine 100 MG TABLET 300 MG PO (20:38)
[2023-07-14] MEDS: metFORMIN HCl 1,000 MG TABLET 1000 MG PO (20:39)
[2023-07-14] MEDS: hydrOXYzine HCL 25 MG TABLET PO (20:39)
[2023-07-14] MEDS: Insulin Glargine,Hum.rec.anlog 100 UNIT/ML 10 ML VIAL 15 UNIT SUBCUT (20:40)
[2023-07-15 00:09] LABS: Glucose, Whole Blood 129 mg/dL (60-115)
[2023-07-15] MEDS: Omeprazole 20 MG CAPSULE.DR PO (05:55)
[2023-07-15 06:18] LABS: Glucose, Whole Blood 104 mg/dL (60-115)
[2023-07-15 07:00] VITALS: BMI 30.5
[2023-07-15 08:05] VITALS: BP 162/76; PULSE 74; RESP 18; TEMP 36.6; O2SAT 98
[2023-07-15 08:43] VITALS: BP 162/76; PULSE 74
[2023-07-15] MEDS: Metoprolol Tartrate 50 MG TABLET PO ×2 (08:43→20:33)
[2023-07-15] MEDS: clonazePAM 0.5 MG TABLET PO ×3 (08:44→20:32)
[2023-07-15] MEDS: methIMAzole 10 MG TABLET PO (08:44)
[2023-07-15] MEDS: metFORMIN HCl ER 500 MG TAB.ER.24H PO (08:44)
[2023-07-15] MEDS: Famotidine 20 MG TABLET PO (08:44)
[2023-07-15] MEDS: ARIPiprazole 20 MG TABLET PO (08:44)
[2023-07-15] MEDS: Empagliflozin 10 MG TABLET PO (08:44)
[2023-07-15 08:45] VITALS: BP 162/76
[2023-07-15] MEDS: Folic Acid 1 MG TABLET PO (08:45)
[2023-07-15] MEDS: Cholecalciferol (Vitamin D3) 25 MCG TABLET PO (08:45)
[2023-07-15] MEDS: cloZAPine 25 MG TABLET 50 MG PO ×2 (08:45→20:32)
[2023-07-15] MEDS: lisinopriL 10 MG TABLET PO (08:45)
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
[2023-07-15 20:00] VITALS: BP 152/81; PULSE 64; RESP 16; TEMP 35.7; O2SAT 98
[2023-07-15 20:26] LABS: Glucose, Whole Blood 113 mg/dL (60-115)
[2023-07-15] MEDS: metFORMIN HCl 1,000 MG TABLET 1000 MG PO (20:32)
[2023-07-15] MEDS: cloZAPine 100 MG TABLET 300 MG PO (20:33)
[2023-07-15] MEDS: hydrOXYzine HCL 25 MG TABLET PO (20:34)
[2023-07-15] MEDS: Insulin Glargine,Hum.rec.anlog 100 UNIT/ML 10 ML VIAL 15 UNIT SUBCUT (20:34)
[2023-07-15] MEDS: Atorvastatin Calcium 40 MG TABLET PO (21:01)
[2023-07-16] MEDS: Omeprazole 20 MG CAPSULE.DR PO (05:43)
[2023-07-16 06:21] LABS: Glucose, Whole Blood 109 mg/dL (60-115)
[2023-07-16 07:56] VITALS: BP 123/68; PULSE 75; RESP 18; TEMP 36.8; O2SAT 99
[2023-07-16 08:01] VITALS: BP 123/68; PULSE 75
[2023-07-16] MEDS: Empagliflozin 10 MG TABLET PO (08:01)
[2023-07-16] MEDS: Folic Acid 1 MG TABLET PO (08:01)
[2023-07-16] MEDS: cloZAPine 25 MG TABLET 50 MG PO ×2 (08:01→20:55)
[2023-07-16] MEDS: methIMAzole 10 MG TABLET PO (08:01)
[2023-07-16] MEDS: clonazePAM 0.5 MG TABLET PO ×3 (08:01→20:55)
[2023-07-16] MEDS: Metoprolol Tartrate 50 MG TABLET PO ×2 (08:01→20:55)
[2023-07-16] MEDS: Cholecalciferol (Vitamin D3) 25 MCG TABLET PO (08:01)
[2023-07-16] MEDS: ARIPiprazole 20 MG TABLET PO (08:01)
[2023-07-16] MEDS: lisinopriL 10 MG TABLET PO (08:01)
[2023-07-16] MEDS: metFORMIN HCl ER 500 MG TAB.ER.24H PO (08:02)
[2023-07-16] MEDS: Famotidine 20 MG TABLET PO (08:02)
[2023-07-16 08:13] LABS: Creatinine Clr Calc Pharmacy 75.7; Estimated Glomerular Filt Rate > 60
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
[2023-07-16 19:50] LABS: Glucose, Whole Blood 118 mg/dL (60-115)
[2023-07-16 20:00] VITALS: BP 121/80; PULSE 69; RESP 18; TEMP 36.3; O2SAT 98
[2023-07-16] MEDS: Insulin Glargine,Hum.rec.anlog 100 UNIT/ML 10 ML VIAL 15 UNIT SUBCUT (20:53)
[2023-07-16 20:55] VITALS: BP 121/80; PULSE 69
[2023-07-16] MEDS: Atorvastatin Calcium 40 MG TABLET PO (20:55)
[2023-07-16] MEDS: cloZAPine 100 MG TABLET 300 MG PO (20:55)
[2023-07-16] MEDS: hydrOXYzine HCL 25 MG TABLET PO (20:56)
[2023-07-16] MEDS: traZODone HCL 50 MG TABLET PO (20:56)
[2023-07-16] MEDS: metFORMIN HCl 1,000 MG TABLET 1000 MG PO (20:56)
[2023-07-17] MEDS: Omeprazole 20 MG CAPSULE.DR PO (06:03)
[2023-07-17 06:10] LABS: Glucose, Whole Blood 124 mg/dL (60-115)
[2023-07-17 08:24] VITALS: BP 124/61; PULSE 76; RESP 18; TEMP 36.8; O2SAT 97
[2023-07-17 08:26] VITALS: BP 124/61; PULSE 76
[2023-07-17] MEDS: Metoprolol Tartrate 50 MG TABLET PO ×2 (08:26→20:46)
[2023-07-17] MEDS: clonazePAM 0.5 MG TABLET PO ×3 (08:26→20:46)
[2023-07-17] MEDS: ARIPiprazole 20 MG TABLET PO (08:26)
[2023-07-17] MEDS: Empagliflozin 10 MG TABLET PO (08:26)
[2023-07-17] MEDS: cloZAPine 25 MG TABLET 50 MG PO ×2 (08:26→20:47)
[2023-07-17] MEDS: methIMAzole 10 MG TABLET PO (08:26)
[2023-07-17] MEDS: Cholecalciferol (Vitamin D3) 25 MCG TABLET PO (08:26)
[2023-07-17] MEDS: lisinopriL 10 MG TABLET PO (08:26)
[2023-07-17] MEDS: Famotidine 20 MG TABLET PO (08:26)
[2023-07-17] MEDS: Folic Acid 1 MG TABLET PO (08:26)
[2023-07-17] MEDS: metFORMIN HCl ER 500 MG TAB.ER.24H PO (08:26)
[2023-07-17] MEDS: Ammonium Lactate 12 % Lotion 226 GM BOTTLE 1 APPL TOPICAL (09:47)
[2023-07-17] MEDS: hydrOXYzine HCL 25 MG TABLET PO (12:41)
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
[2023-07-17 20:00] VITALS: BP 109/58; PULSE 75; RESP 18; TEMP 37; O2SAT 98
[2023-07-17 20:06] LABS: Glucose, Whole Blood 161 mg/dL (60-115)
[2023-07-17] MEDS: Insulin Glargine,Hum.rec.anlog 100 UNIT/ML 10 ML VIAL 15 UNIT SUBCUT (20:45)
[2023-07-17 20:46] VITALS: BP 109/58; PULSE 75
[2023-07-17] MEDS: cloZAPine 100 MG TABLET 300 MG PO (20:46)
[2023-07-17] MEDS: traZODone HCL 50 MG TABLET PO (20:46)
[2023-07-17] MEDS: metFORMIN HCl 1,000 MG TABLET 1000 MG PO (20:46)
[2023-07-17] MEDS: Atorvastatin Calcium 40 MG TABLET PO (20:47)
[2023-07-18] MEDS: Omeprazole 20 MG CAPSULE.DR PO (06:00)
[2023-07-18 06:19] LABS: Glucose, Whole Blood 129 mg/dL (60-115)
[2023-07-18 08:35] VITALS: BP 145/69; PULSE 70; RESP 18; TEMP 36.4; O2SAT 95
[2023-07-18 08:37] VITALS: BP 145/69; PULSE 70
[2023-07-18] MEDS: Famotidine 20 MG TABLET PO (08:37)
[2023-07-18] MEDS: cloZAPine 25 MG TABLET 50 MG PO ×2 (08:37→19:56)
[2023-07-18] MEDS: metFORMIN HCl ER 500 MG TAB.ER.24H PO (08:37)
[2023-07-18] MEDS: Metoprolol Tartrate 50 MG TABLET PO ×2 (08:37→19:56)
[2023-07-18 08:38] VITALS: BP 145/69
[2023-07-18] MEDS: lisinopriL 10 MG TABLET PO (08:38)
[2023-07-18] MEDS: ARIPiprazole 20 MG TABLET PO (08:38)
[2023-07-18] MEDS: Folic Acid 1 MG TABLET PO (08:38)
[2023-07-18] MEDS: clonazePAM 0.5 MG TABLET PO ×3 (08:38→19:55)
[2023-07-18] MEDS: methIMAzole 10 MG TABLET PO (08:38)
[2023-07-18] MEDS: Empagliflozin 10 MG TABLET PO (08:38)
[2023-07-18] MEDS: Cholecalciferol (Vitamin D3) 25 MCG TABLET PO (08:41)
[2023-07-18] MEDS: Ammonium Lactate 12 % Lotion 226 GM BOTTLE 1 APPL TOPICAL ×2 (08:44→19:58)
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
[2023-07-18 19:44] LABS: Glucose, Whole Blood 193 mg/dL (60-115)
[2023-07-18] MEDS: Atorvastatin Calcium 40 MG TABLET PO (19:55)
[2023-07-18] MEDS: metFORMIN HCl 1,000 MG TABLET 1000 MG PO (19:55)
[2023-07-18 19:56] VITALS: BP 123/64; PULSE 70
[2023-07-18] MEDS: cloZAPine 100 MG TABLET 300 MG PO (19:56)
[2023-07-18] MEDS: Insulin Glargine,Hum.rec.anlog 100 UNIT/ML 10 ML VIAL 15 UNIT SUBCUT (19:57)
[2023-07-18 20:00] VITALS: BP 123/64; PULSE 70; TEMP 35.5; O2SAT 98
[2023-07-19] MEDS: Omeprazole 20 MG CAPSULE.DR PO (05:22)
[2023-07-19 05:29] LABS: Glucose, Whole Blood 126 mg/dL (60-115)
[2023-07-19 07:30] LABS: Neutrophils Absolute Auto 5.1 x10*3/uL (2.0-8.3); WBCANC 8.5 X10*3/uL
[2023-07-19 08:00] VITALS: BP 118/60; PULSE 81; RESP 18; TEMP 36.6; O2SAT 99
[2023-07-19] MEDS: ARIPiprazole 20 MG TABLET PO (08:26)
[2023-07-19] MEDS: Cholecalciferol (Vitamin D3) 25 MCG TABLET PO (08:26)
[2023-07-19 08:27] VITALS: BP 118/60; PULSE 81
[2023-07-19] MEDS: clonazePAM 0.5 MG TABLET PO ×3 (08:27→20:30)
[2023-07-19] MEDS: Metoprolol Tartrate 50 MG TABLET PO ×2 (08:27→20:28)
[2023-07-19] MEDS: Famotidine 20 MG TABLET PO (08:27)
[2023-07-19] MEDS: lisinopriL 10 MG TABLET PO (08:27)
[2023-07-19] MEDS: cloZAPine 25 MG TABLET 50 MG PO ×2 (08:27→20:31)
[2023-07-19] MEDS: methIMAzole 10 MG TABLET PO (08:27)
[2023-07-19] MEDS: metFORMIN HCl ER 500 MG TAB.ER.24H PO (08:27)
[2023-07-19] MEDS: Ammonium Lactate 12 % Lotion 226 GM BOTTLE 1 APPL TOPICAL (08:28)
[2023-07-19] MEDS: Folic Acid 1 MG TABLET PO (08:28)
[2023-07-19] MEDS: Empagliflozin 10 MG TABLET PO (08:42)
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
[2023-07-19 20:00] VITALS: BP 116/5; PULSE 62; RESP 16; TEMP 37.1; O2SAT 97
[2023-07-19] MEDS: Insulin Glargine,Hum.rec.anlog 100 UNIT/ML 10 ML VIAL 15 UNIT SUBCUT (20:27)
[2023-07-19 20:28] VITALS: BP 151/59; PULSE 69
[2023-07-19] MEDS: metFORMIN HCl 1,000 MG TABLET 1000 MG PO (20:29)
[2023-07-19] MEDS: Atorvastatin Calcium 40 MG TABLET PO (20:30)
[2023-07-19] MEDS: cloZAPine 100 MG TABLET 300 MG PO (20:30)
[2023-07-19 20:41] LABS: Glucose, Whole Blood 110 mg/dL (60-115)
[2023-07-20 04:59] LABS: Clozapine (Clozaril) 700 mcg/L; Norclozapine 385 mcg/L (25-400)
[2023-07-20] MEDS: Omeprazole 20 MG CAPSULE.DR PO (05:56)
[2023-07-20 06:59] LABS: Glucose, Whole Blood 149 mg/dL (60-115)
[2023-07-20 08:00] VITALS: BP 132/63; PULSE 79; RESP 18; TEMP 36.7; O2SAT 100
[2023-07-20 08:14] VITALS: BP 132/62; PULSE 79
[2023-07-20] MEDS: Metoprolol Tartrate 50 MG TABLET PO ×2 (08:14→20:23)
[2023-07-20] MEDS: Famotidine 20 MG TABLET PO (08:14)
[2023-07-20] MEDS: methIMAzole 10 MG TABLET PO (08:14)
[2023-07-20] MEDS: metFORMIN HCl ER 500 MG TAB.ER.24H PO (08:14)
[2023-07-20] MEDS: ARIPiprazole 20 MG TABLET PO (08:14)
[2023-07-20 08:15] VITALS: BP 132/63
[2023-07-20] MEDS: cloZAPine 25 MG TABLET 50 MG PO ×2 (08:15→20:24)
[2023-07-20] MEDS: clonazePAM 0.5 MG TABLET PO ×3 (08:15→20:26)
[2023-07-20] MEDS: Folic Acid 1 MG TABLET PO (08:15)
[2023-07-20] MEDS: Cholecalciferol (Vitamin D3) 25 MCG TABLET PO (08:15)
[2023-07-20] MEDS: lisinopriL 10 MG TABLET PO (08:15)
[2023-07-20] MEDS: Empagliflozin 10 MG TABLET PO (08:16)
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
[2023-07-20 20:00] VITALS: BP 132/66; PULSE 61; TEMP 36.3; O2SAT 98
[2023-07-20 20:18] LABS: Glucose, Whole Blood 102 mg/dL (60-115)
[2023-07-20] MEDS: Atorvastatin Calcium 40 MG TABLET PO (20:22)
[2023-07-20] MEDS: cloZAPine 100 MG TABLET 300 MG PO (20:22)
[2023-07-20 20:23] VITALS: BP 132/66; PULSE 62
[2023-07-20] MEDS: metFORMIN HCl 1,000 MG TABLET 1000 MG PO (20:23)
[2023-07-20] MEDS: hydrOXYzine HCL 25 MG TABLET PO (20:23)
[2023-07-20] MEDS: traZODone HCL 50 MG TABLET PO (20:24)
[2023-07-20] MEDS: Insulin Glargine,Hum.rec.anlog 100 UNIT/ML 10 ML VIAL 15 UNIT SUBCUT (20:26)
[2023-07-21] MEDS: Acetaminophen 325 MG TABLET 650 MG PO (04:28)
[2023-07-21] MEDS: Omeprazole 20 MG CAPSULE.DR PO (06:09)
[2023-07-21 06:30] LABS: Glucose, Whole Blood 103 mg/dL (60-115)
[2023-07-21 08:00] VITALS: BP 164/83; PULSE 70; RESP 18; TEMP 36.6; O2SAT 98
[2023-07-21] MEDS: Folic Acid 1 MG TABLET PO (08:09)
[2023-07-21] MEDS: cloZAPine 25 MG TABLET 50 MG PO ×2 (08:09→20:35)
[2023-07-21] MEDS: Cholecalciferol (Vitamin D3) 25 MCG TABLET PO (08:09)
[2023-07-21] MEDS: Empagliflozin 10 MG TABLET PO (08:09)
[2023-07-21] MEDS: methIMAzole 10 MG TABLET PO (08:09)
[2023-07-21] MEDS: Famotidine 20 MG TABLET PO (08:09)
[2023-07-21] MEDS: ARIPiprazole 20 MG TABLET PO (08:09)
[2023-07-21 08:10] VITALS: BP 164/83; PULSE 70
[2023-07-21] MEDS: Metoprolol Tartrate 50 MG TABLET PO ×2 (08:10→20:34)
[2023-07-21] MEDS: metFORMIN HCl ER 500 MG TAB.ER.24H PO (08:10)
[2023-07-21] MEDS: lisinopriL 10 MG TABLET PO (08:10)
[2023-07-21] MEDS: clonazePAM 0.5 MG TABLET PO ×3 (08:11→20:34)
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
[2023-07-21 20:00] VITALS: BP 153/86; PULSE 88; RESP 18; O2SAT 96
[2023-07-21 20:06] LABS: Glucose, Whole Blood 185 mg/dL (60-115)
[2023-07-21 20:34] VITALS: BP 153/86; PULSE 88
[2023-07-21] MEDS: traZODone HCL 50 MG TABLET PO (20:34)
[2023-07-21] MEDS: hydrOXYzine HCL 25 MG TABLET PO (20:34)
[2023-07-21] MEDS: cloZAPine 100 MG TABLET 300 MG PO (20:34)
[2023-07-21] MEDS: Atorvastatin Calcium 40 MG TABLET PO (20:34)
[2023-07-21] MEDS: metFORMIN HCl 1,000 MG TABLET 1000 MG PO (20:34)
[2023-07-21] MEDS: Insulin Glargine,Hum.rec.anlog 100 UNIT/ML 10 ML VIAL 15 UNIT SUBCUT (20:35)
[2023-07-21] MEDS: Ammonium Lactate 12 % Lotion 226 GM BOTTLE 1 APPL TOPICAL (20:36)
[2023-07-21] MEDS: Carbamide Peroxide 6.5% Otic 15 ML DRPBTL 5 DROP EAR-BOTH (21:43)
[2023-07-22] MEDS: Omeprazole 20 MG CAPSULE.DR PO (06:46)
[2023-07-22 06:54] LABS: Glucose, Whole Blood 145 mg/dL (60-115)
[2023-07-22 08:00] VITALS: BP 107/66; PULSE 85; RESP 18; TEMP 36.2; O2SAT 98
[2023-07-22 08:50] VITALS: BP 107/66
[2023-07-22] MEDS: clonazePAM 0.5 MG TABLET PO ×3 (08:50→20:32)
[2023-07-22] MEDS: Famotidine 20 MG TABLET PO (08:50)
[2023-07-22] MEDS: lisinopriL 10 MG TABLET PO (08:50)
[2023-07-22] MEDS: ARIPiprazole 20 MG TABLET PO (08:51)
[2023-07-22] MEDS: cloZAPine 25 MG TABLET 50 MG PO ×2 (08:51→20:31)
[2023-07-22] MEDS: metFORMIN HCl ER 500 MG TAB.ER.24H PO (08:51)
[2023-07-22 08:52] VITALS: BP 107/66; PULSE 85
[2023-07-22] MEDS: Folic Acid 1 MG TABLET PO (08:52)
[2023-07-22] MEDS: Empagliflozin 10 MG TABLET PO (08:52)
[2023-07-22] MEDS: methIMAzole 10 MG TABLET PO (08:52)
[2023-07-22] MEDS: Metoprolol Tartrate 50 MG TABLET PO ×2 (08:52→20:31)
[2023-07-22] MEDS: Ammonium Lactate 12 % Lotion 226 GM BOTTLE 1 APPL TOPICAL ×2 (09:57→20:30)
[2023-07-22] MEDS: Carbamide Peroxide 6.5% Otic 15 ML DRPBTL 5 DROP EAR-BOTH ×2 (09:57→20:30)
[2023-07-22] MEDS: Cholecalciferol (Vitamin D3) 25 MCG TABLET PO (10:11)
[2023-07-22 13:07] VITALS: BMI 30.7
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
[2023-07-22 19:59] LABS: Glucose, Whole Blood 133 mg/dL (60-115)
[2023-07-22 20:00] VITALS: BP 147/70; PULSE 73; RESP 18; TEMP 36.3; O2SAT 100
[2023-07-22 20:31] VITALS: BP 147/70; PULSE 73
[2023-07-22] MEDS: cloZAPine 100 MG TABLET 300 MG PO (20:31)
[2023-07-22] MEDS: traZODone HCL 50 MG TABLET PO (20:32)
[2023-07-22] MEDS: hydrOXYzine HCL 25 MG TABLET PO (20:32)
[2023-07-22] MEDS: metFORMIN HCl 1,000 MG TABLET 1000 MG PO (20:32)
[2023-07-22] MEDS: Atorvastatin Calcium 40 MG TABLET PO (20:32)
[2023-07-22] MEDS: Insulin Glargine,Hum.rec.anlog 100 UNIT/ML 10 ML VIAL 15 UNIT SUBCUT (20:32)
[2023-07-23] MEDS: Omeprazole 20 MG CAPSULE.DR PO (06:28)
[2023-07-23 06:50] LABS: Glucose, Whole Blood 146 mg/dL (60-115)
[2023-07-23 08:00] VITALS: BP 120/58; PULSE 76; RESP 18; TEMP 36.3; O2SAT 100
[2023-07-23] MEDS: metFORMIN HCl ER 500 MG TAB.ER.24H PO (08:07)
[2023-07-23] MEDS: Folic Acid 1 MG TABLET PO (08:07)
[2023-07-23] MEDS: Cholecalciferol (Vitamin D3) 25 MCG TABLET PO (08:07)
[2023-07-23] MEDS: methIMAzole 10 MG TABLET PO (08:07)
[2023-07-23] MEDS: ARIPiprazole 20 MG TABLET PO (08:07)
[2023-07-23] MEDS: Empagliflozin 10 MG TABLET PO (08:07)
[2023-07-23 08:08] VITALS: BP 120/58; PULSE 76
[2023-07-23] MEDS: Famotidine 20 MG TABLET PO (08:08)
[2023-07-23] MEDS: cloZAPine 25 MG TABLET 50 MG PO ×2 (08:08→21:10)
[2023-07-23] MEDS: lisinopriL 10 MG TABLET PO (08:08)
[2023-07-23] MEDS: clonazePAM 0.5 MG TABLET PO ×4 (08:08→23:20)
[2023-07-23] MEDS: Metoprolol Tartrate 50 MG TABLET PO (08:08)
[2023-07-23] MEDS: Carbamide Peroxide 6.5% Otic 15 ML DRPBTL 5 DROP EAR-BOTH (08:24)
[2023-07-23] MEDS: Ammonium Lactate 12 % Lotion 226 GM BOTTLE 1 APPL TOPICAL (08:24)
[2023-07-23 09:20] LABS: Creatinine Clr Calc Pharmacy 74.9; Estimated Glomerular Filt Rate > 60
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
[2023-07-23 20:00] VITALS: BP 135/65; PULSE 56; RESP 16; TEMP 35.4; O2SAT 97
[2023-07-23] MEDS: cloZAPine 100 MG TABLET 300 MG PO (21:10)
[2023-07-23] MEDS: metFORMIN HCl 1,000 MG TABLET 1000 MG PO (21:11)
[2023-07-23] MEDS: Atorvastatin Calcium 40 MG TABLET PO (21:12)
[2023-07-23] MEDS: Insulin Glargine,Hum.rec.anlog 100 UNIT/ML 10 ML VIAL 15 UNIT SUBCUT (21:13)
[2023-07-23 21:19] LABS: Glucose, Whole Blood 93 mg/dL (60-115)
[2023-07-23 21:21] VITALS: BP 135/65; PULSE 56
[2023-07-24] MEDS: Omeprazole 20 MG CAPSULE.DR PO (06:19)
[2023-07-24 06:26] LABS: Glucose, Whole Blood 122 mg/dL (60-115)
[2023-07-24 08:00] VITALS: BP 147/70; PULSE 80; RESP 18; TEMP 36.6; O2SAT 97
[2023-07-24] MEDS: Cholecalciferol (Vitamin D3) 25 MCG TABLET PO (08:23)
[2023-07-24] MEDS: methIMAzole 10 MG TABLET PO (08:23)
[2023-07-24] MEDS: cloZAPine 25 MG TABLET 50 MG PO ×2 (08:23→19:51)
[2023-07-24] MEDS: Famotidine 20 MG TABLET PO (08:23)
[2023-07-24 08:24] VITALS: BP 147/70; PULSE 80
[2023-07-24] MEDS: Empagliflozin 10 MG TABLET PO (08:24)
[2023-07-24] MEDS: metFORMIN HCl ER 500 MG TAB.ER.24H PO (08:24)
[2023-07-24] MEDS: lisinopriL 10 MG TABLET PO (08:24)
[2023-07-24] MEDS: Metoprolol Tartrate 50 MG TABLET PO ×2 (08:24→19:54)
[2023-07-24] MEDS: ARIPiprazole 20 MG TABLET PO (08:24)
[2023-07-24] MEDS: clonazePAM 0.5 MG TABLET PO ×3 (08:24→19:53)
[2023-07-24] MEDS: Folic Acid 1 MG TABLET PO (08:24)
[2023-07-24] MEDS: Carbamide Peroxide 6.5% Otic 15 ML DRPBTL 5 DROP EAR-BOTH ×2 (08:30→21:46)
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
[2023-07-24 19:30] VITALS: BP 110/60; PULSE 72; RESP 16; TEMP 36.1; O2SAT 97
[2023-07-24] MEDS: cloZAPine 100 MG TABLET 300 MG PO (19:52)
[2023-07-24] MEDS: Atorvastatin Calcium 40 MG TABLET PO (19:53)
[2023-07-24 19:54] VITALS: BP 110/60; PULSE 72
[2023-07-24] MEDS: metFORMIN HCl 1,000 MG TABLET 1000 MG PO (19:54)
[2023-07-24] MEDS: Insulin Glargine,Hum.rec.anlog 100 UNIT/ML 10 ML VIAL 15 UNIT SUBCUT (19:55)
[2023-07-24 20:00] VITALS: PULSE 16
[2023-07-24 20:38] LABS: Glucose, Whole Blood 144 mg/dL (60-115)
[2023-07-25] MEDS: Omeprazole 20 MG CAPSULE.DR PO (06:01)
[2023-07-25 06:46] LABS: Glucose, Whole Blood 135 mg/dL (60-115)
[2023-07-25 08:05] VITALS: BP 141/62; PULSE 77; RESP 18; TEMP 36.7; O2SAT 98
[2023-07-25] MEDS: Cholecalciferol (Vitamin D3) 25 MCG TABLET PO (08:10)
[2023-07-25] MEDS: Famotidine 20 MG TABLET PO (08:10)
[2023-07-25] MEDS: cloZAPine 25 MG TABLET 50 MG PO ×2 (08:10→20:41)
[2023-07-25 08:11] VITALS: BP 141/62; PULSE 77
[2023-07-25] MEDS: ARIPiprazole 20 MG TABLET PO (08:11)
[2023-07-25] MEDS: Empagliflozin 10 MG TABLET PO (08:11)
[2023-07-25] MEDS: metFORMIN HCl ER 500 MG TAB.ER.24H PO (08:11)
[2023-07-25] MEDS: lisinopriL 10 MG TABLET PO (08:11)
[2023-07-25] MEDS: Metoprolol Tartrate 50 MG TABLET PO ×2 (08:11→20:42)
[2023-07-25] MEDS: clonazePAM 0.5 MG TABLET PO ×3 (08:12→20:42)
[2023-07-25] MEDS: Folic Acid 1 MG TABLET PO (08:12)
[2023-07-25] MEDS: methIMAzole 10 MG TABLET PO (08:12)
[2023-07-25] MEDS: Carbamide Peroxide 6.5% Otic 15 ML DRPBTL 5 DROP EAR-BOTH (08:16)
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
[2023-07-25 20:00] VITALS: BP 133/63; PULSE 74; RESP 14; TEMP 35.8; O2SAT 98
[2023-07-25 20:09] LABS: Glucose, Whole Blood 156 mg/dL (60-115)
[2023-07-25] MEDS: cloZAPine 100 MG TABLET 300 MG PO (20:40)
[2023-07-25 20:42] VITALS: BP 133/63; PULSE 74
[2023-07-25] MEDS: Atorvastatin Calcium 40 MG TABLET PO (20:42)
[2023-07-25] MEDS: metFORMIN HCl 1,000 MG TABLET 1000 MG PO (20:43)
[2023-07-25] MEDS: Insulin Glargine,Hum.rec.anlog 100 UNIT/ML 10 ML VIAL 15 UNIT SUBCUT (20:44)
[2023-07-26] MEDS: Omeprazole 20 MG CAPSULE.DR PO (06:12)
[2023-07-26 06:45] LABS: Glucose, Whole Blood 139 mg/dL (60-115)
[2023-07-26 07:59] LABS: Neut%MD 71.1 %; Neutrophils Absolute Auto 8.1 x10*3/uL (2.0-8.3); WBCANC 11.5 X10*3/uL
[2023-07-26 08:00] VITALS: BP 143/63; PULSE 83; RESP 18; TEMP 36.6; O2SAT 99
[2023-07-26] MEDS: Cholecalciferol (Vitamin D3) 25 MCG TABLET PO (09:02)
[2023-07-26] MEDS: ARIPiprazole 20 MG TABLET PO (09:02)
[2023-07-26] MEDS: Famotidine 20 MG TABLET PO (09:02)
[2023-07-26] MEDS: cloZAPine 25 MG TABLET 50 MG PO ×2 (09:02→19:52)
[2023-07-26] MEDS: metFORMIN HCl ER 500 MG TAB.ER.24H PO (09:02)
[2023-07-26] MEDS: Empagliflozin 10 MG TABLET PO (09:02)
[2023-07-26 09:03] VITALS: BP 143/63; PULSE 83
[2023-07-26] MEDS: Folic Acid 1 MG TABLET PO (09:03)
[2023-07-26] MEDS: methIMAzole 10 MG TABLET PO (09:03)
[2023-07-26] MEDS: Metoprolol Tartrate 50 MG TABLET PO ×2 (09:03→19:52)
[2023-07-26 09:04] VITALS: BP 143/63
[2023-07-26] MEDS: lisinopriL 10 MG TABLET PO (09:04)
[2023-07-26] MEDS: clonazePAM 0.5 MG TABLET PO ×3 (09:05→19:52)
[2023-07-26] MEDS: Ammonium Lactate 12 % Lotion 226 GM BOTTLE 1 APPL TOPICAL ×2 (09:05→20:18)
[2023-07-26 12:17] LABS: Appearance Urine Clear; Color Urine Yellow; Glucose Urine UA >=1000 mg/dL (Negative); Leukocyte Esterase Urine Trace (Negative); Nitrite Urine Negative (Negative); PH 6.5 (5.0-9.0); UMIC TRIGGER UACC YES; Urine Blood Negative (Negative); Urine Ketones Negative (Negative); Urine Protein Negative (Neg-Trace)
[2023-07-26 12:22] LABS: Bacteria Urine Trace (None Seen); Hyaline Casts Urine 0-2 /LPF (0-2); RBC Urine 0-2 /HPF (0-2); Squamous Epithelial Cell Urine 0-2 /HPF (0-2); UACC Culture Trigger YES
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
[2023-07-26] MEDS: cefuroxime axetiL 250 MG TABLET PO ×2 (14:40→20:28)
[2023-07-26 19:37] LABS: Glucose, Whole Blood 163 mg/dL (60-115)
[2023-07-26 19:52] VITALS: BP 148/84; PULSE 73
[2023-07-26] MEDS: metFORMIN HCl 1,000 MG TABLET 1000 MG PO (19:52)
[2023-07-26] MEDS: Atorvastatin Calcium 40 MG TABLET PO (19:52)
[2023-07-26] MEDS: Insulin Glargine,Hum.rec.anlog 100 UNIT/ML 10 ML VIAL 15 UNIT SUBCUT (19:53)
[2023-07-26] MEDS: cloZAPine 100 MG TABLET 300 MG PO (19:53)
[2023-07-26 20:00] VITALS: BP 148/84; PULSE 73; TEMP 36.6; O2SAT 95
[2023-07-27] MEDS: Omeprazole 20 MG CAPSULE.DR PO (05:43)
[2023-07-27 06:41] LABS: Glucose, Whole Blood 149 mg/dL (60-115)
[2023-07-27 07:55] VITALS: BP 141/68; PULSE 86; RESP 18; TEMP 37; O2SAT 99
[2023-07-27 08:17] VITALS: BP 141/68; PULSE 86
[2023-07-27] MEDS: cloZAPine 25 MG TABLET 50 MG PO ×2 (08:17→21:03)
[2023-07-27] MEDS: lisinopriL 10 MG TABLET PO (08:17)
[2023-07-27] MEDS: Metoprolol Tartrate 50 MG TABLET PO ×2 (08:17→21:04)
[2023-07-27] MEDS: Cholecalciferol (Vitamin D3) 25 MCG TABLET PO (08:17)
[2023-07-27] MEDS: ARIPiprazole 20 MG TABLET PO (08:18)
[2023-07-27] MEDS: methIMAzole 10 MG TABLET PO (08:18)
[2023-07-27] MEDS: clonazePAM 0.5 MG TABLET PO ×3 (08:18→21:05)
[2023-07-27] MEDS: Folic Acid 1 MG TABLET PO (08:18)
[2023-07-27] MEDS: Empagliflozin 10 MG TABLET PO (08:18)
[2023-07-27] MEDS: metFORMIN HCl ER 500 MG TAB.ER.24H PO (08:18)
[2023-07-27] MEDS: cefuroxime axetiL 250 MG TABLET PO ×2 (08:18→21:04)
[2023-07-27] MEDS: Ammonium Lactate 12 % Lotion 226 GM BOTTLE 1 APPL TOPICAL ×2 (08:18→21:01)
[2023-07-27] MEDS: Famotidine 20 MG TABLET PO (08:18)
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
[2023-07-27 20:00] VITALS: BP 119/61; PULSE 75; RESP 18; TEMP 36; O2SAT 97
[2023-07-27 20:13] LABS: Glucose, Whole Blood 152 mg/dL (60-115)
[2023-07-27] MEDS: Insulin Glargine,Hum.rec.anlog 100 UNIT/ML 10 ML VIAL 15 UNIT SUBCUT (21:01)
[2023-07-27] MEDS: cloZAPine 100 MG TABLET 300 MG PO (21:03)
[2023-07-27 21:04] VITALS: BP 119/61; PULSE 75
[2023-07-27] MEDS: Atorvastatin Calcium 40 MG TABLET PO (21:04)
[2023-07-27] MEDS: metFORMIN HCl 1,000 MG TABLET 1000 MG PO (21:04)
[2023-07-27] MEDS: traZODone HCL 50 MG TABLET PO (21:04)
[2023-07-27] MEDS: Acetaminophen 325 MG TABLET 650 MG PO (23:03)
[2023-07-27] MEDS: hydrOXYzine HCL 25 MG TABLET PO (23:03)
[2023-07-28] MEDS: Omeprazole 20 MG CAPSULE.DR PO (06:32)
[2023-07-28 06:43] LABS: Glucose, Whole Blood 124 mg/dL (60-115)
[2023-07-28 08:00] VITALS: BP 151/68; PULSE 81; RESP 18; TEMP 36.8; O2SAT 97
[2023-07-28] MEDS: Ammonium Lactate 12 % Lotion 226 GM BOTTLE 1 APPL TOPICAL ×2 (08:02→20:29)
[2023-07-28 08:03] VITALS: BP 151/68; PULSE 81
[2023-07-28] MEDS: Metoprolol Tartrate 50 MG TABLET PO ×2 (08:03→20:36)
[2023-07-28] MEDS: Famotidine 20 MG TABLET PO (08:03)
[2023-07-28] MEDS: cloZAPine 25 MG TABLET 50 MG PO ×2 (08:03→20:31)
[2023-07-28 08:04] VITALS: BP 151/68
[2023-07-28] MEDS: Cholecalciferol (Vitamin D3) 25 MCG TABLET PO (08:04)
[2023-07-28] MEDS: cefuroxime axetiL 250 MG TABLET PO ×2 (08:04→20:31)
[2023-07-28] MEDS: Folic Acid 1 MG TABLET PO (08:04)
[2023-07-28] MEDS: clonazePAM 0.5 MG TABLET PO ×3 (08:04→20:30)
[2023-07-28] MEDS: methIMAzole 10 MG TABLET PO (08:04)
[2023-07-28] MEDS: lisinopriL 10 MG TABLET PO (08:04)
[2023-07-28] MEDS: metFORMIN HCl ER 500 MG TAB.ER.24H PO (08:04)
[2023-07-28] MEDS: ARIPiprazole 20 MG TABLET PO (08:04)
[2023-07-28] MEDS: Empagliflozin 10 MG TABLET PO (08:04)
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
[2023-07-28 20:00] VITALS: BP 109/59; PULSE 72; RESP 18; TEMP 36.1; O2SAT 98
[2023-07-28] MEDS: Insulin Glargine,Hum.rec.anlog 100 UNIT/ML 10 ML VIAL 15 UNIT SUBCUT (20:29)
[2023-07-28] MEDS: Atorvastatin Calcium 40 MG TABLET PO (20:30)
[2023-07-28] MEDS: cloZAPine 100 MG TABLET 300 MG PO (20:30)
[2023-07-28] MEDS: metFORMIN HCl 1,000 MG TABLET 1000 MG PO (20:30)
[2023-07-28] MEDS: traZODone HCL 50 MG TABLET PO (20:31)
[2023-07-28 20:36] VITALS: BP 109/59; PULSE 72
[2023-07-28 21:12] LABS: Glucose, Whole Blood 196 mg/dL (60-115)
[2023-07-29] MEDS: Omeprazole 20 MG CAPSULE.DR PO (06:15)
[2023-07-29 06:27] LABS: Glucose, Whole Blood 162 mg/dL (60-115)
[2023-07-29 07:00] VITALS: BMI 30.4
[2023-07-29 08:00] VITALS: BP 140/80; PULSE 82; RESP 16; TEMP 35.9; O2SAT 98
[2023-07-29 08:03] LABS: Estimated Average Glucose 148 mg/dL; Hemoglobin A1c % 6.8 % (<6.0)
[2023-07-29 08:15] LABS: Alanine Aminotransferase 44 U/L (0-31); Albumin Level 3.6 g/dL (3.5-5.0); Alkaline Phosphatase 96 U/L (39-117); Anion Gap 13 (12-20); Aspartate Amino Transferase 38 U/L (5-31); Bilirubin Direct 0.2 mg/dL (0.0-0.5); Bilirubin Total 0.3 mg/dL (0.0-1.0); Blood Urea Nitrogen 20 mg/dL (9-16); Calcium 10.1 mg/dL (8.4-10.2); Carbon Dioxide 21 mmol/L (22-29); Chloride 104 mmol/L (96-108); Estimated Glomerular Filt Rate > 60; Glucose Random 173 mg/dL (60-115); Potassium 4.5 mmol/L (3.3-5.1); Sodium 133 mmol/L (135-145); Total Protein 7.2 g/dL (6.5-8.0)
[2023-07-29 08:30] LABS: Thyroid Stimulating Hormone 1.12 uIU/mL (0.32-4.0)
[2023-07-29] MEDS: Ammonium Lactate 12 % Lotion 226 GM BOTTLE 1 APPL TOPICAL ×2 (08:46→20:09)
[2023-07-29] MEDS: cloZAPine 25 MG TABLET 50 MG PO ×2 (08:47→20:01)
[2023-07-29] MEDS: methIMAzole 10 MG TABLET PO (08:48)
[2023-07-29] MEDS: Folic Acid 1 MG TABLET PO (08:48)
[2023-07-29] MEDS: cefuroxime axetiL 250 MG TABLET PO ×2 (08:48→20:01)
[2023-07-29] MEDS: Cholecalciferol (Vitamin D3) 25 MCG TABLET PO (08:48)
[2023-07-29 08:49] VITALS: BP 140/80; PULSE 76
[2023-07-29] MEDS: Metoprolol Tartrate 50 MG TABLET PO ×2 (08:49→20:00)
[2023-07-29] MEDS: ARIPiprazole 20 MG TABLET PO (08:50)
[2023-07-29] MEDS: metFORMIN HCl ER 500 MG TAB.ER.24H PO (08:50)
[2023-07-29 08:51] VITALS: BP 140/80
[2023-07-29] MEDS: lisinopriL 10 MG TABLET PO (08:51)
[2023-07-29] MEDS: Empagliflozin 10 MG TABLET PO (08:51)
[2023-07-29] MEDS: Famotidine 20 MG TABLET PO (08:51)
[2023-07-29] MEDS: clonazePAM 0.5 MG TABLET PO ×3 (08:51→20:01)
--- NOTE | 2023-07-29 10:39 | PC.NURSE ---
POC was 162 before breakfast today.
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
[2023-07-29 19:51] LABS: Glucose, Whole Blood 154 mg/dL (60-115)
[2023-07-29 20:00] VITALS: BP 137/63; PULSE 73; RESP 18; TEMP 35.8; O2SAT 98
[2023-07-29] MEDS: metFORMIN HCl 1,000 MG TABLET 1000 MG PO (20:00)
[2023-07-29] MEDS: Atorvastatin Calcium 40 MG TABLET PO (20:00)
[2023-07-29] MEDS: Insulin Glargine,Hum.rec.anlog 100 UNIT/ML 10 ML VIAL 15 UNIT SUBCUT (20:01)
[2023-07-29] MEDS: cloZAPine 100 MG TABLET 300 MG PO (20:01)
[2023-07-30 06:23] LABS: Glucose, Whole Blood 129 mg/dL (60-115)
[2023-07-30] MEDS: Omeprazole 20 MG CAPSULE.DR PO (06:23)
[2023-07-30 08:00] VITALS: BP 143/71; PULSE 78; RESP 18; TEMP 36.1; O2SAT 99
[2023-07-30] MEDS: metFORMIN HCl ER 500 MG TAB.ER.24H PO (08:24)
[2023-07-30] MEDS: ARIPiprazole 20 MG TABLET PO (08:24)
[2023-07-30] MEDS: Ammonium Lactate 12 % Lotion 226 GM BOTTLE 1 APPL TOPICAL ×2 (08:24→20:51)
[2023-07-30] MEDS: Empagliflozin 10 MG TABLET PO (08:24)
[2023-07-30] MEDS: Folic Acid 1 MG TABLET PO (08:25)
[2023-07-30] MEDS: lisinopriL 10 MG TABLET PO (08:25)
[2023-07-30] MEDS: clonazePAM 0.5 MG TABLET PO ×3 (08:25→20:53)
[2023-07-30] MEDS: cloZAPine 25 MG TABLET 50 MG PO ×2 (08:26→20:52)
[2023-07-30] MEDS: methIMAzole 10 MG TABLET PO (08:26)
[2023-07-30] MEDS: cefuroxime axetiL 250 MG TABLET PO ×2 (08:26→20:53)
[2023-07-30] MEDS: Metoprolol Tartrate 50 MG TABLET PO ×2 (08:27→20:54)
[2023-07-30] MEDS: Famotidine 20 MG TABLET PO (08:27)
[2023-07-30] MEDS: Cholecalciferol (Vitamin D3) 25 MCG TABLET PO (08:27)
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
[2023-07-30 18:53] VITALS: BP 116/60; PULSE 88; RESP 18; TEMP 35.5; O2SAT 99
[2023-07-30 19:47] LABS: Glucose, Whole Blood 151 mg/dL (60-115)
[2023-07-30] MEDS: Insulin Glargine,Hum.rec.anlog 100 UNIT/ML 10 ML VIAL 15 UNIT SUBCUT (20:50)
[2023-07-30] MEDS: cloZAPine 100 MG TABLET 300 MG PO (20:51)
[2023-07-30] MEDS: metFORMIN HCl 1,000 MG TABLET 1000 MG PO (20:53)
[2023-07-30] MEDS: traZODone HCL 50 MG TABLET PO (20:53)
[2023-07-30] MEDS: Atorvastatin Calcium 40 MG TABLET PO (20:53)
[2023-07-30 20:54] VITALS: BP 116/60; PULSE 88
[2023-07-31] MEDS: Omeprazole 20 MG CAPSULE.DR PO (06:25)
[2023-07-31 07:07] LABS: Glucose, Whole Blood 162 mg/dL (60-115)
[2023-07-31 08:37] VITALS: BP 128/68; PULSE 87; RESP 18; TEMP 35.9; O2SAT 97
[2023-07-31] MEDS: cloZAPine 25 MG TABLET 50 MG PO ×2 (08:40→19:46)
[2023-07-31] MEDS: Cholecalciferol (Vitamin D3) 25 MCG TABLET PO (08:41)
[2023-07-31] MEDS: metFORMIN HCl ER 500 MG TAB.ER.24H PO (08:41)
[2023-07-31] MEDS: methIMAzole 10 MG TABLET PO (08:41)
[2023-07-31 08:42] VITALS: BP 128/68; PULSE 87
[2023-07-31] MEDS: Empagliflozin 10 MG TABLET PO (08:42)
[2023-07-31] MEDS: Metoprolol Tartrate 50 MG TABLET PO ×2 (08:42→19:46)
[2023-07-31] MEDS: ARIPiprazole 20 MG TABLET PO (08:42)
[2023-07-31 08:44] VITALS: BP 128/68
[2023-07-31] MEDS: lisinopriL 10 MG TABLET PO (08:44)
[2023-07-31] MEDS: Famotidine 20 MG TABLET PO (08:44)
[2023-07-31] MEDS: Ammonium Lactate 12 % Lotion 226 GM BOTTLE 1 APPL TOPICAL ×2 (08:47→20:31)
[2023-07-31] MEDS: Folic Acid 1 MG TABLET PO (08:47)
[2023-07-31] MEDS: clonazePAM 0.5 MG TABLET PO ×3 (09:24→19:46)
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
[2023-07-31 19:41] LABS: Glucose, Whole Blood 118 mg/dL (60-115)
[2023-07-31 19:46] VITALS: BP 132/69; PULSE 79
[2023-07-31] MEDS: metFORMIN HCl 1,000 MG TABLET 1000 MG PO (19:46)
[2023-07-31] MEDS: Atorvastatin Calcium 40 MG TABLET PO (19:46)
[2023-07-31] MEDS: cloZAPine 100 MG TABLET 300 MG PO (19:47)
[2023-07-31] MEDS: Insulin Glargine,Hum.rec.anlog 100 UNIT/ML 10 ML VIAL 15 UNIT SUBCUT (19:47)
[2023-07-31 20:00] VITALS: BP 131/62; PULSE 79; TEMP 35.9; O2SAT 96
[2023-08-01] MEDS: Omeprazole 20 MG CAPSULE.DR PO (05:42)
[2023-08-01 06:44] LABS: Glucose, Whole Blood 153 mg/dL (60-115)
[2023-08-01 08:35] VITALS: BP 154/66; PULSE 78; RESP 20; TEMP 36.4; O2SAT 98
[2023-08-01 08:37] VITALS: BP 154/66
[2023-08-01] MEDS: Folic Acid 1 MG TABLET PO (08:37)
[2023-08-01] MEDS: methIMAzole 10 MG TABLET PO (08:37)
[2023-08-01] MEDS: Cholecalciferol (Vitamin D3) 25 MCG TABLET PO (08:37)
[2023-08-01] MEDS: lisinopriL 10 MG TABLET PO (08:37)
[2023-08-01] MEDS: ARIPiprazole 20 MG TABLET PO (08:37)
[2023-08-01] MEDS: cloZAPine 25 MG TABLET 50 MG PO ×2 (08:37→19:44)
[2023-08-01] MEDS: Ammonium Lactate 12 % Lotion 226 GM BOTTLE 1 APPL TOPICAL ×2 (08:37→20:08)
[2023-08-01 08:38] VITALS: BP 154/66; PULSE 78
[2023-08-01] MEDS: Famotidine 20 MG TABLET PO (08:38)
[2023-08-01] MEDS: Empagliflozin 10 MG TABLET PO (08:38)
[2023-08-01] MEDS: clonazePAM 0.5 MG TABLET PO ×3 (08:38→20:08)
[2023-08-01] MEDS: Metoprolol Tartrate 50 MG TABLET PO ×2 (08:38→19:44)
[2023-08-01] MEDS: metFORMIN HCl ER 500 MG TAB.ER.24H PO (08:38)
[2023-08-01 19:30] LABS: Glucose, Whole Blood 101 mg/dL (60-115)
[2023-08-01 19:41] VITALS: BP 146/89; PULSE 69; RESP 16; TEMP 35.6; O2SAT 100
[2023-08-01 19:44] VITALS: BP 146/89; PULSE 69
[2023-08-01] MEDS: cloZAPine 100 MG TABLET 300 MG PO (19:44)
[2023-08-01] MEDS: metFORMIN HCl 1,000 MG TABLET 1000 MG PO (19:44)
[2023-08-01] MEDS: Atorvastatin Calcium 40 MG TABLET PO (19:44)
[2023-08-01] MEDS: Insulin Glargine,Hum.rec.anlog 100 UNIT/ML 10 ML VIAL 15 UNIT SUBCUT (19:45)
[2023-08-02] MEDS: Omeprazole 20 MG CAPSULE.DR PO (05:36)
[2023-08-02 06:42] LABS: Glucose, Whole Blood 137 mg/dL (60-115)
[2023-08-02 08:10] VITALS: BP 140/71; PULSE 83; RESP 18; TEMP 36.1; O2SAT 99
[2023-08-02] MEDS: clonazePAM 0.5 MG TABLET PO ×3 (08:40→19:55)
[2023-08-02] MEDS: Metoprolol Tartrate 50 MG TABLET PO ×2 (08:41→19:55)
[2023-08-02] MEDS: ARIPiprazole 20 MG TABLET PO (08:41)
[2023-08-02] MEDS: metFORMIN HCl ER 500 MG TAB.ER.24H PO (08:41)
[2023-08-02] MEDS: lisinopriL 10 MG TABLET PO (08:41)
[2023-08-02] MEDS: Empagliflozin 10 MG TABLET PO (08:42)
[2023-08-02] MEDS: methIMAzole 10 MG TABLET PO (08:42)
[2023-08-02] MEDS: Folic Acid 1 MG TABLET PO (08:42)
[2023-08-02] MEDS: cloZAPine 25 MG TABLET 50 MG PO ×2 (08:42→19:55)
[2023-08-02] MEDS: Cholecalciferol (Vitamin D3) 25 MCG TABLET PO (08:43)
[2023-08-02] MEDS: Ammonium Lactate 12 % Lotion 226 GM BOTTLE 1 APPL TOPICAL ×2 (08:43→19:58)
[2023-08-02] MEDS: Famotidine 20 MG TABLET PO (08:43)
[2023-08-02 09:44] LABS: Neut%MD 73.5 %; Neutrophils Absolute Auto 5.5 x10*3/uL (2.0-8.3); WBCANC 7.5 X10*3/uL
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
[2023-08-02 19:42] LABS: Glucose, Whole Blood 166 mg/dL (60-115)
[2023-08-02 19:53] VITALS: BP 148/71; PULSE 67; RESP 14; TEMP 36.5; O2SAT 97
[2023-08-02] MEDS: cloZAPine 100 MG TABLET 300 MG PO (19:54)
[2023-08-02 19:55] VITALS: BP 148/71; PULSE 67
[2023-08-02] MEDS: metFORMIN HCl 1,000 MG TABLET 1000 MG PO (19:55)
[2023-08-02] MEDS: Atorvastatin Calcium 40 MG TABLET PO (19:55)
[2023-08-02] MEDS: Insulin Glargine,Hum.rec.anlog 100 UNIT/ML 10 ML VIAL 15 UNIT SUBCUT (19:56)
[2023-08-03] MEDS: Omeprazole 20 MG CAPSULE.DR PO (05:34)
[2023-08-03 06:35] LABS: Glucose, Whole Blood 176 mg/dL (60-115)
[2023-08-03 08:00] VITALS: BP 151/68; PULSE 84; RESP 18; TEMP 36; O2SAT 100
[2023-08-03] MEDS: clonazePAM 0.5 MG TABLET PO ×3 (08:30→20:47)
[2023-08-03] MEDS: Famotidine 20 MG TABLET PO (08:30)
[2023-08-03] MEDS: cloZAPine 25 MG TABLET 50 MG PO ×2 (08:30→20:46)
[2023-08-03 08:31] VITALS: BP 151/68; PULSE 84
[2023-08-03] MEDS: Folic Acid 1 MG TABLET PO (08:31)
[2023-08-03] MEDS: Empagliflozin 10 MG TABLET PO (08:31)
[2023-08-03] MEDS: methIMAzole 10 MG TABLET PO (08:31)
[2023-08-03] MEDS: Metoprolol Tartrate 50 MG TABLET PO ×2 (08:31→20:47)
[2023-08-03] MEDS: lisinopriL 10 MG TABLET PO (08:31)
[2023-08-03] MEDS: metFORMIN HCl ER 500 MG TAB.ER.24H PO (08:31)
[2023-08-03] MEDS: Cholecalciferol (Vitamin D3) 25 MCG TABLET PO (08:31)
[2023-08-03] MEDS: ARIPiprazole 20 MG TABLET PO (08:31)
[2023-08-03] MEDS: Acetaminophen 325 MG TABLET 650 MG PO (08:35)
[2023-08-03] MEDS: Ammonium Lactate 12 % Lotion 226 GM BOTTLE 1 APPL TOPICAL ×2 (08:36→21:01)
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
[2023-08-03 20:00] VITALS: BP 115/58; PULSE 77; RESP 18; TEMP 36.3; O2SAT 100
[2023-08-03] MEDS: metFORMIN HCl 1,000 MG TABLET 1000 MG PO (20:46)
[2023-08-03] MEDS: cloZAPine 100 MG TABLET 300 MG PO (20:46)
[2023-08-03 20:47] VITALS: BP 115/60; PULSE 77
[2023-08-03] MEDS: Atorvastatin Calcium 40 MG TABLET PO (20:47)
[2023-08-03 20:49] LABS: Glucose, Whole Blood 87 mg/dL (60-115)
[2023-08-03] MEDS: Insulin Glargine,Hum.rec.anlog 100 UNIT/ML 10 ML VIAL 15 UNIT SUBCUT (20:58)
[2023-08-04] MEDS: Omeprazole 20 MG CAPSULE.DR PO (06:14)
[2023-08-04 06:25] LABS: Glucose, Whole Blood 112 mg/dL (60-115)
[2023-08-04 08:00] VITALS: BP 125/63; PULSE 85; RESP 17; TEMP 36.4; O2SAT 98
[2023-08-04] MEDS: Famotidine 20 MG TABLET PO (08:12)
[2023-08-04] MEDS: Cholecalciferol (Vitamin D3) 25 MCG TABLET PO (08:12)
[2023-08-04] MEDS: cloZAPine 25 MG TABLET 50 MG PO ×2 (08:12→20:08)
[2023-08-04 08:13] VITALS: BP 125/63; PULSE 85
[2023-08-04] MEDS: Empagliflozin 10 MG TABLET PO (08:13)
[2023-08-04] MEDS: ARIPiprazole 20 MG TABLET PO (08:13)
[2023-08-04] MEDS: metFORMIN HCl ER 500 MG TAB.ER.24H PO (08:13)
[2023-08-04] MEDS: lisinopriL 10 MG TABLET PO (08:13)
[2023-08-04] MEDS: methIMAzole 10 MG TABLET PO (08:13)
[2023-08-04] MEDS: Metoprolol Tartrate 50 MG TABLET PO ×2 (08:13→20:07)
[2023-08-04] MEDS: clonazePAM 0.5 MG TABLET PO ×3 (08:13→20:07)
[2023-08-04] MEDS: Folic Acid 1 MG TABLET PO (08:13)
[2023-08-04] MEDS: Ammonium Lactate 12 % Lotion 226 GM BOTTLE 1 APPL TOPICAL ×2 (08:16→22:09)
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
[2023-08-04 20:07] VITALS: BP 133/64; PULSE 64
[2023-08-04] MEDS: metFORMIN HCl 1,000 MG TABLET 1000 MG PO (20:07)
[2023-08-04] MEDS: Atorvastatin Calcium 40 MG TABLET PO (20:07)
[2023-08-04] MEDS: cloZAPine 100 MG TABLET 300 MG PO (20:07)
[2023-08-04] MEDS: Insulin Glargine,Hum.rec.anlog 100 UNIT/ML 10 ML VIAL 15 UNIT SUBCUT (20:08)
[2023-08-04 21:15] LABS: Glucose, Whole Blood 116 mg/dL (60-115)
[2023-08-04 22:00] VITALS: BP 133/64; PULSE 64; RESP 14; TEMP 36.2; O2SAT 96
[2023-08-05] MEDS: Omeprazole 20 MG CAPSULE.DR PO (05:57)
[2023-08-05 06:35] LABS: Glucose, Whole Blood 135 mg/dL (60-115)
[2023-08-05 08:00] VITALS: BP 132/62; PULSE 90; RESP 18; TEMP 35.6; O2SAT 98
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
[2023-08-05 08:34] LABS: Creatinine Clr Calc Pharmacy 76.7; Estimated Glomerular Filt Rate > 60
[2023-08-05] MEDS: methIMAzole 10 MG TABLET PO (08:35)
[2023-08-05] MEDS: Folic Acid 1 MG TABLET PO (08:35)
[2023-08-05] MEDS: cloZAPine 25 MG TABLET 50 MG PO (08:36)
[2023-08-05] MEDS: ARIPiprazole 20 MG TABLET PO (08:36)
[2023-08-05] MEDS: Famotidine 20 MG TABLET PO (08:36)
[2023-08-05] MEDS: Cholecalciferol (Vitamin D3) 25 MCG TABLET PO (08:36)
[2023-08-05 08:37] VITALS: BP 132/62; PULSE 90
[2023-08-05] MEDS: Metoprolol Tartrate 50 MG TABLET PO (08:37)
[2023-08-05] MEDS: metFORMIN HCl ER 500 MG TAB.ER.24H PO (08:37)
[2023-08-05 08:38] VITALS: BP 132/62
[2023-08-05] MEDS: lisinopriL 10 MG TABLET PO (08:38)
[2023-08-05] MEDS: clonazePAM 0.5 MG TABLET PO (08:38)
[2023-08-05] MEDS: Ammonium Lactate 12 % Lotion 226 GM BOTTLE 1 APPL TOPICAL (08:43)
[2023-08-05] MEDS: Empagliflozin 10 MG TABLET PO (08:49)
[2023-08-05] MEDS: hydrOXYzine HCL 25 MG TABLET PO (12:40)
== END 2023-08-05 13:12 | disposition skilled nursing facility (03) | DRG 750 ==
PROVIDERS: Internal Medicine; Physician Assistant; Social Worker; Admitting Provider Psychiatry & Neurology Psychiatry; Visit Provider Psychiatry & Neurology Psychiatry
DX: F25.0 Schizoaffective disorder, bipolar type (principal); E11.9 Type 2 diabetes mellitus without complications; F03.90 Unspecified dementia, unspecified severity, without behavioral disturbance, psychotic disturbance, mood disturbance, and anxiety; E05.90 Thyrotoxicosis, unspecified without thyrotoxic crisis or storm; I10 Essential (primary) hypertension; E78.5 Hyperlipidemia, unspecified; Z91.040 Latex allergy status; Z75.1 Person awaiting admission to adequate facility elsewhere; Z79.4 Long term (current) use of insulin; Z79.84 Long term (current) use of oral hypoglycemic drugs; Z79.899 Other long term (current) drug therapy
CPT/HCPCS: 36415; 80048; 80053; 80061; 80076; 80159; 81001; 82565; 82947; 83036; 84439; 84443; 85025; 85048; 87086; 87088; 87186; 90686

== ENCOUNTER → 2023-04-20 14:27 | Outpatient (BNV) | payer MEDICARE, SELFPAY | PROVIDERS: Admitting Provider Psychiatry & Neurology Psychiatry; Visit Provider Physician Assistant | DX: I10 Essential (primary) hypertension (principal); E05.90 Thyrotoxicosis, unspecified without thyrotoxic crisis or storm; E11.9 Type 2 diabetes mellitus without complications | CPT/HCPCS: 99222 ==

== ENCOUNTER → 2023-04-20 14:27 | Outpatient (BNV) | payer OTHER, SELFPAY | PROVIDERS: Admitting Provider Psychiatry & Neurology Psychiatry; Visit Provider Psychiatry & Neurology Psychiatry | DX: F25.0 Schizoaffective disorder, bipolar type (principal) | CPT/HCPCS: 90792; 99231; 99232; 99238 ==

== ENCOUNTER → 2023-04-20 14:27 | Outpatient (BNV) | payer OTHER, SELFPAY | PROVIDERS: Admitting Provider Psychiatry & Neurology Psychiatry; Visit Provider Psychiatry & Neurology Psychiatry | DX: F25.0 Schizoaffective disorder, bipolar type (principal) | CPT/HCPCS: 99231 ==